=== PATIENT | female | born 1955 | race Caucasian/White ===

== ENCOUNTER 2017-08-20 10:30 | Outpatient (CLI) | payer MEDICARE | END 2017-08-20 10:31 | disposition home or self-care (01) | LOC: BICRAD 10:30 | PROVIDERS: ATTEND Family Medicine | DX: J40 Bronchitis, not specified as acute or chronic (principal); I70.90 Unspecified atherosclerosis | CPT/HCPCS: 71046 ==

== ENCOUNTER 2017-12-23 22:01 | Observation (INO) | payer MEDICARE ==
--- NOTE | 2017-12-23 22:23 | CT ---
CT BRAIN WITHOUT CONTRAST: 12/23/17 HISTORY: Headache. COMPARISON: None. FINDINGS: No acute territorial infarct or hemorrhage. No midline shift or mass effect. Ventricular size and ext ra-axial CSF spaces are normal. Paranasal sinuses and mastoids are clear. IMPRESSION: No acute intracranial abnormality. Code ROSEANN German at 10:20 p.m. POS: [facility]
[2017-12-23 22:36] LABS: #Basophils 0.1 thou/uL (0.0-0.2); #Eosinphils 0.2 thou/uL (0.0-0.7); #Lymphocytes 2.9 thou/uL (1.20-3.40); #Monocytes 0.5 thou/uL (0.11-0.59); #Neutrophils 4.2 thou/uL (1.40-6.50); %Basophils 1.1 % (0.0-1.0); %Eosinophils 2.5 % (0.0-10.0); %Monocytes 5.8 % (0.0-10.0); %Neutrophils 53.6 % (42.0-75.0); Hemoglobin 12.9 g/dL (12.0-16.0); Mean Corpuscular HGB CONC 33.3 g/dL (32.0-36.0); Mean Corpuscular Volume 90.2 fl (81.0-99.0); Mean Platelet Volume 6.6 fL (7.4-10.4); Platelet Count 236 thou/uL (130-400); RBC Distribution Width 12.3 % (11.5-14.5); Red Blood Cell (RBC) Count 4.28 mill/uL (4.20-5.40); White Blood Cell (WBC) Count 7.7 thou/uL (4.8-10.8)
[2017-12-23 22:41] LABS: INR-International Normal Ratio 0.9; Prothrombin Time 12.6 SEC (12.0-14.7)
[2017-12-23 22:42] LABS: PTT 29.7 SEC (22.9-36.1)
--- NOTE | 2017-12-23 22:45 | CT ---
CT ANGIOGRAM OF HEAD WITH CONTRAST CT ANGIOGRAM NECK WITH CONTRAST: 12/23/17 HISTORY: Stroke alert. COMPARISON: None. FINDINGS: CT angiogram of the head and neck performed after the intravenous administration of contrast. 3D rend ering is provided. Great vessels are unremarkable. There is mild scarring in lung apices as well as low grade paraseptal emphysema. Low grade small likely reactive mediastinal lymph nodes. the thyroid gland is mildly atro phied. No adenopathy. Normal alignment of the cervical spine. VESSELS: RIGHT SIDE: The right vertebral artery is dominant. No significant narrowing thrombosis or dissection. Common car otid artery is patent. Internal carotid artery is patent. No significant narrowing using NASCET crite perlita. LEFT SIDE: There is a small left vertebral artery. There is attenuation of the intradural vertebral artery. The common carotid artery is patent. No significant narrowing of the internal carotid artery using NASCET criteria. The jena of German is patent. No thrombosis, significant narrowing, nor aneurysm formation. IMPRESSION: No evidence of stenosis, thrombosis, nor aneurysm formation. No significant narrowing using NASCET cr iteria. Code CR - Dr. German at 10:32 p.m. POS: [facility]
[2017-12-23 22:48] LABS: ALT (SGPT) 45 U/L (8-55); AST (SGOT) 43 U/L (5-34); Albumin 4.2 g/dL (3.4-4.8); Alkaline Phosphatase 70 U/L (40-150); Anion Gap 12 mmol/L (10-20); BUN (Urea Nitrogen) 21 mg/dL (9.8-20.1); Bilirubin, Total 0.3 mg/dL (0.2-1.2); Calc. Creatinine Clearance 0 mL/min (70-130); Calcium 9.5 mg/dL (7.8-10.44); Carbon Dioxide 26 mmol/L (23-31); Chloride 102 mmol/L (98-107); Estimated GFR-MDRD 80; Globulin 2.7 g/dL (2.4-3.5); Glucose 136 mg/dL (80-115); Potassium 4.1 mmol/L (3.5-5.1); Protein, Total 6.9 g/dL (6.0-8.3); Sodium 136 mmol/L (136-145)
[2017-12-23 22:52] LABS: Troponin I 0.027 ng/mL (< 0.028)
[2017-12-23 23:11] LABS: Bilirubin Negative (Negative); Blood, Urine Negative (Negative); Clarity CLEAR (Clear); Glucose, Urine (Dipstick) Negative (Negative); Leukocyte Negative (Negative); Nitrite Negative (Negative); Protein, Urine (Dipstick) Negative (Neg-Trace); Specific Gravity, Urine 1.042 (1.002-1.036); Urobilinogen 0.2 mg/dL (0.2-1.0)
[2017-12-23 23:21] LABS: Amphetamine Not Detected (NotDetected); Barbiturates Screen Not Detected (NotDetected); Benzodiazepine Screen Not Detected (NotDetected); Cocaine Metabolite Screen Not Detected (NotDetected); Medtox Control Line Valid? VALID (VALID); Medtox Reader # READER 4; Methadone Not Detected (NotDetected); Methamphetamine Not Detected (NotDetected); Opiate Screen Not Detected (NotDetected); Oxycodone Screen Not Detected (NotDetected); Phencyclidine (PCP) Not Detected (NotDetected); THC/Cannabinoid Screen Not Detected (NotDetected); Tricyclic Screen Not Detected (NotDetected)
[2017-12-23 23:37] LABS: Magnesium 1.7 mg/dL (1.6-2.6)
[2017-12-24 02:42] VITALS: BMI 38.4
[2017-12-24 02:52] LABS: Troponin I 0.041 ng/mL (< 0.028)
[2017-12-24 05:49] LABS: Troponin I 0.029 ng/mL (< 0.028)
[2017-12-24] MEDS ORDERED: Dextrose 50% Abboject 50 ML SYRINGE IVP PRN (08:52)
[2017-12-24] MEDS ORDERED: Dextrose 5% in Water 1,000 ML IV PRN (08:52)
[2017-12-24] MEDS ORDERED: Insulin Regular 300 UNITS/3 ML VIAL SC PRN (08:52)
[2017-12-24] MEDS ORDERED: Ibuprofen 200 MG TAB PO PRN (09:03)
[2017-12-24] MEDS: Aspirin 325 MG TAB PO SCH (09:31)
[2017-12-24] MEDS: busPIRone HCl 10 MG TAB PO SCH (09:31)
[2017-12-24] MEDS: Fish Oil 1,000 MG CAP PO SCH (09:31)
[2017-12-24] MEDS: Oxybutynin 5 MG TAB PO SCH (09:31)
[2017-12-24] MEDS: Allopurinol 300 MG TAB PO SCH ×2 (09:32→21:13)
[2017-12-24] MEDS: Multivit, Therapeutic 1 TAB PO SCH (09:32)
[2017-12-24] MEDS: Calcium Carbonate + Vit D 1 TAB PO SCH (09:32)
[2017-12-24] MEDS: Meloxicam 15 MG TAB PO SCH (09:32)
--- NOTE | 2017-12-24 13:51 | ULT ---
CAROTID ULTRASOUND: COMPARISON: 11/20/12. HISTORY: Cardiovascular disease and carotid bruit. TECHNIQUE: Multiplanar, molina scale, and color Doppler images were obtained in a carotid ultrasound. Spectral an alysis of the Doppler waveforms was performed. FINDINGS: A small amount of plaque is seen surrounding both carotid bifurcations. The Doppler waveforms are no rmal bilaterally. Peak systolic velocity in the right ICA is 91 cm/s. Peak systolic velocity of the right CCA is 65 cm /s. The right ICA/CCA ratio is 1.4. Peak systolic velocity in the left ICA is 64 cm/s. Peak systolic velocity in the left CCA is 85 cm/s . The left ICA/CCA ratio is 0.8. Both vertebral arteries demonstrate antegrade flow without focal stenosis. IMPRESSION: No evidence of hemodynamically significant stenosis. POS: [facility]
--- NOTE | 2017-12-24 14:13 | HP ---
DATE OF ADMISSION: 12/24/2017 REASON FOR ADMISSION: Chest pain and weakness. HISTORY OF PRESENT ILLNESS: This is a pleasant 62-year-old female with a history of coronary artery disease with AR in the past. She has not seen Dr. Pimentel, she said in quite some time. She also had a history of cerebrovascular accident. She presents after she began having pain on her left side of her head that made her vision blurry. S hortly after this, she started having retrosternal chest tightness. She felt like "somebody was sitt ing on her chest" associated with shortness of breath and upper extremity weakness. She states she t ook a nitroglycerin and the pain went away, but it did come back. She did have to go to the emergenc y room where AR was ruled out by serial cardiac enzymes. She also had a CT of the head that was unre markable. Subsequently, she was admitted to the hospital for further evaluation and treatment. PAST MEDICAL HISTORY: 1. History of CVA. 2. COPD. 3. Hypothyroidism. 4. History of kidney stones. 5. Depression. 6. Obesity. 7. Questionable history of diabetes type 2. PAST SURGICAL HISTORY: 1. Stent placement in the past. 2. Appendectomy, cholecystectomy, and hysterectomy in the past. 3. Umbilical hernia repair in the past. 4. Renal calculi surgery in the past. ALLERGIES: None. MEDICATIONS: 1. Tylenol #3 every 6 hours p.r.n. pain. 2. Allopurinol 300 b.i.d. 3. Aspirin 325 mg every day. 4. Buspirone 15 mg every day. 5. Calcium carbonate 600 mg plus vitamin D every day. 6. Fenofibrate 160 mg every day. 7. Advair 2 inhalations b.i.d. 8. Motrin 400 mg t.i.d. 9. Isosorbide 60 mg every day. 10. Levothyroxine 75 mcg daily. 11. Lovastatin 20 mg every day. 12. Mobic 15 mg every day. 13. Metformin 1000 mg b.i.d. 14. Multivitamin daily. 15. Moon 3 daily. 16. Ditropan 5 mg b.i.d. 17. Accupril 20 mg every day. 18. Zoloft 10 mg every day. 19. Trazodone 100 mg at bedtime. SOCIAL HISTORY: She is disabled. She does not smoke now. She used to smoke a long time ago. She d oes not drink alcohol. FAMILY HISTORY: Positive for coronary artery disease. REVIEW OF SYSTEMS: General: Admits to weakness and fatigue. No fever or chills. HEENT: No diplop ia, amaurosis fugax, tinnitus, sore throat or hoarseness. Cardiovascular: See history of present il lness. Pulmonary: No cough, hemoptysis. She does have COPD. Gastrointestinal: No GI bleed, const ipation, or diarrhea. Genitourinary: No dysuria, nocturia, oliguria or polyuria. Endocrine: No po lyphagia, polydipsia or heat or cold intolerance. Musculoskeletal: Admits to arthralgia. No lupus or myopathy. Neurologic: See present illness. All systems are negative. PHYSICAL EXAMINATION: GENERAL: Pleasant female who appears to be in no acute distress. She is not having any more chest p ain. VITAL SIGNS: Her blood pressure is 136/70, pulse 60, respiration rate 18. She is afebrile. NECK: Supple with no increased JVP or carotid bruit. Carotid had good upstroke with no thyromegaly. COR: Regular rhythm. CHEST: Symmetrical. Clear to auscultation and percussion. ABDOMEN: Soft, nontender with normoactive bowel sounds. No bruit or organomegaly. EXTREMITIES: No edema or cyanosis. She had palpable pedal pulses. She has SCDs on. NEUROLOGIC: She is awake, alert, and oriented to person, place and time. Neurologically, she appear s to be intact with a hand grasp, toe wiggle and arm and leg press. LABORATORY DATA: CBC is normal. Glucose 118. First troponin 0.027, second 0.041, third 0.029. UA is negative. EKG showed no acute change. ASSESSMENT: 1. Chest pain with a history of coronary artery disease with stent in the past. 2. Hypertension. 3. Hyperlipidemia. 4. Diabetes. 5. Chronic obstructive pulmonary disease. 6. Possible transient ischemic attack. PLAN: 1. We will ask Dr. Pimentel to see the patient in consultation regarding chest pain. 2. We will obtain a complete echocardiogram and carotid ultrasound. 3. We will continue aspirin 325 mg every day. 4. We will check blood sugars accordingly. 5. We will ask the neuro to see the patient in consultation for recommendations and may be needing a n MRI. The patient verbalized understanding. All questions answered to satisfaction.
--- NOTE | 2017-12-24 16:19 | CON ---
DATE OF ADMISSION: 12/24/2017 DATE OF CONSULTATION: 12/24/2017 INDICATION FOR CONSULTATION: A 62-year-old female with history of known coronary artery disease, adm itted with severe headache, has some slight neurologic changes and chest pain. We were asked to see her due to her coronary artery disease and chest pain. She has a history of previously placed stents in the left circumflex and diagonal branch and also has some stenosis in the right coronary artery. Her last cardiac catheterization was in 2010. She has not followed up on a routine basis. She has not seen a correctional therapy teacher for several years and at home had been having some chest discomfort. She too k nitroglycerin and the pain improved, but after she developed the headaches and also some radiation of some chest pain to the left arm, she presented to the emergency room. She did have one episode of chest discomfort in the emergency room, which she did not inform the nurses about, but since she has been admitted on the floor. She has not had any further chest discomfort. Her cardiac enzymes are unremarkable. At this time, she is comfortable and is feeling almost back to her baseline. Unfortun ately, she has multiple risk factors for coronary artery disease in addition to her previously placed stents and has not been following up on a routine basis and has continued to smoke. For her past medical history, social history, family history, review of systems, please refer to the notes dictated by the nurse practitioner. PHYSICAL EXAMINATION: GENERAL: This is a well-developed and well-nourished female who is in no acute distress at this time . VITAL SIGNS: She is afebrile. Blood pressure 136/69, heart rates in the 60s and shows a sinus rhyth m, respiratory rate 16. HEENT: Shows head to be normocephalic and atraumatic. Carotid pulses are somewhat decreased. The r ight carotid pulse is less palpable than the left. She has a very soft right carotid bruit. I canno t hear a left carotid bruit. CHEST: Clear to auscultation without rales, rhonchi, or wheezing. CARDIOVASCULAR: Reveals a regular rate and rhythm with normal S1 and S2. I cannot hear an S3 nor an S4. ABDOMEN: Obese with positive bowel sounds. No organomegaly or masses were noted. Pulses are presen t. Pedal pulses are also present. NEUROLOGIC: The patient appears to be intact. I cannot elicit any significant focal defects. SKIN: Warm and dry. LABORATORY DATA AND IMAGING: Please refer to the notes already dictated, but she has no cardiac enzy mes. On admission, it was 0.027, increased troponin I, and then increased up to 0.041, is now decrea sed back down to 0.029. MBs are negative. Her renal function shows a creatinine of 0.74 with a BUN of 21. Her hemoglobin is 12.9. IMPRESSION: 1. A middle-aged female with a history of coronary artery disease, angioplasty and stent placements who has had episodes of chest discomfort recently without any significant EKG changes or any signific ant elevation of cardiac enzyme. We will advise her to undergo a stress test to rule out evidence fo r underlying ischemia. If any is found, she will need to undergo repeat cardiac catheterization. 2. History of hypercholesterolemia. There is no recent cholesterol level performed at this time, bu t previous LDL on 12/22 at an outside facility was 54 and cholesterol appears to be under good contro l. 3. History of cerebrovascular accident in the past. We will need to reevaluate her carotid arteries . She is very stable at this time. 4. Severe headaches. She has had a CT scan performed which was unremarkable. Her son did of ce rebral aneurysm earlier this year. We will be more than happy to continue to follow the patient with you. Further recommendations will depend on the results of the stress test and echocardiogram as we ll as the carotid ultrasound.
--- NOTE | 2017-12-24 16:22 | CON ---
DATE OF SERVICE: 12/24/2017 This is a 62-year-old female who presented to the emergency room by EMS with left-sided headaches, se kaz shooting pain with blurred vision. She reports about 5 minutes after having a headache, she sta rted having heavy chest pain that radiated to her left arm, left shoulder and fingers with nausea and diaphoresis. She denies any vomiting. She did take one nitro that eased up her chest pain. She re ports that the pain started while she was just sitting at home while resting. She describes the pain as heaviness, something sitting on her chest. She arrived to the emergency room and they worked her up for a stroke. Head CT was negative. CT angio was negative. She was admitted for transient isch emic attack and Cardiology was consulted for chest pain. PAST MEDICAL HISTORY: She had 4 stents [place] [address] Pimentel. She has a history of diabet es type 2, she takes metformin twice a day, hypothyroidism, hypertension. She states she has had a m yocardial infarction. She does have a left cataract without surgical repair. She does have a previo us history of a cerebrovascular accident with right-sided deficit. She says that the right-sided def icit is resolved at this time. She reports having pneumonia 4-5 years ago, chronic obstructive pulmo nary disease history and asthma history. SURGICAL HISTORY: Right knee surgery 2 years ago, hernia repair as an , hysterectomy, a cholec ystitis, a cholecystectomy. SOCIAL HISTORY: She does smoke 1 pack every 3 days. She has been a smoker off and on for 40 years. She states that she is disabled and she lives at home alone. FAMILY HISTORY: She states her grandfather had a massive heart attack. CURRENT MEDICATIONS: She takes at home is Accupril, Zoloft, Zocor, Advair, Ditropan, trazodone, metf ormin. ALLERGIES: She reports being allergic to pizza sauce which makes her short of breath and weak. Taiwo es any other allergies to medications. REVIEW OF SYSTEMS: She did have vision changes, headaches. She does report a runny nose, at times i ncreased shortness of breath and asthma history. CARDIAC: She denies any palpitations, denies any chest pain at this time, although she did have ches t heaviness last night. She does report dyspnea with exertion and more short of breath than normal. Unable to walk from her kitchen to her living room which is new for her over the last couple of week s. GI: She denies any abdominal pain, any nausea, vomiting, constipation, diarrhea at this time, she do es report a decrease in appetite. She denies any rectal bleeding. She does report incontinence and takes Ditropan for that which has been worse at night and she has to wear a diaper. MUSCULOSKELETAL: She denies any joint swelling. NEUROLOGIC: She denies any seizures, syncope, tremors. Although, she does feel very weak, generaliz ed weakness. PHYSICAL EXAMINATION: VITAL SIGNS: Blood pressure is 136/69, heart rate 64 regular, respirations 16, temperature 97.9, SpO 2 95% on room air. HEENT: She is normocephalic, atraumatic. Carotids are 2+. I could not hear any bruits. CHEST: Clear in the upper lobes. She does have some mild rales and diminished breath sounds in the lower lobes. I do not hear any wheezing. CARDIOVASCULAR: She has a regular rate and rhythm with a normal S1, S2. I did not hear a S4 or S3 h eart sound. She does not have any significant murmurs, heaves, thrills or rubs. ABDOMEN: Soft, nontender and she has got active bowel sounds x4. No palpable masses in her abdomen. No hernias. She does report a repair as an infant. She has got +2 femoral pulses. EXTREMITIES: She has got normal motor strength. She has equal in upper and lower extremities. Ther e is no cyanosis. There is no clubbing. Pulses are 2+ and equal pedal and dorsalis pedis pulses. NEUROLOGICAL: Her speech is low. LABORATORY: BUN 21, creatinine 0.74, glucose 136, calcium 9.5, magnesium 1.7, AST is 43. The first troponin was 0.041, repeat was 0.029. Urine drug screen was negative. ASSESSMENT: Transient ischemic attack, general weakness, cardiovascular disease with stent placement s. PLAN: The plan is to order an echo, stress test, and a chest x-ray and BNP.
--- NOTE | 2017-12-24 16:32 | CON ---
DATE OF CONSULTATION: 12/24/2017 CHIEF COMPLAINT: Headache and right-sided weakness. HISTORY OF PRESENT ILLNESS: Patient is a very pleasant 62-year-old lady who reports to me that she has had a prior stroke which affected the right side of her body and she stated to me that she could not remember the exact date of that stroke and per ER chart, she did have a stroke, but there is no clear date on it. I am assuming it is in the past 2 years or so. She developed a headache on the left side with some uncomfortable sensations and whenever she has a headache, she has right-sided weakness and it seems to be transient. She stated to me prior to this admission, she had a significant stroke which caused a major weakness on her right side of the body, but subsequently she regained her strength: She has developed chest pain overnight and she took nitro 2 times and mostly she is still having intermittent weakness on the right side and chest pain. PAST MEDICAL HISTORY: She has coronary artery disease with myocardial infarction and stent placement, she had 4 stents. She has type 2 diabetes, hypothyroidism, hypercholesterolemia, hypertension, and a prior CVA on 2 occasions, COPD, and asthma. PAST SURGICAL HISTORY: She had 4 stents placed 3 years ago, appendectomy, cholecystectomy, hysterectomy, right tibial fracture repair. PSYCHIATRIC HISTORY: Positive for depression. SOCIAL HISTORY: She smokes half pack a day. Does not drink alcohol, no drug use. She lives by herself. FAMILY HISTORY: Positive for stroke in her father and her son at age 39 in this hospital on 08/09/2017 following aneurysm and seizure and he went into coma per patient. REVIEW OF SYSTEMS: Pulmonary: Normal. Cardiac: Chest pain. Genitourinary: Normal. Gastrointestinal: Normal. Neurologic: Positive for headache and sharp sensations on the left side of the head along with weakness of the right side. Endocrine: Positive for hypothyroidism. LABORATORY DATA: White count 7.7, hemoglobin 12.9, hematocrit 38.6, platelets 236. Chemistry: Sodium 136, potassium 4.1, chloride 102, bicarbonate 26, BUN 21, creatinine 0.74, glucose 136. Troponin elevated at 0.041 and 0.029 and cholesterol and other panel pending. Toxicology screen is negative and PT 12.6 , INR 0.9, PTT 29.7. She had a CT of the head which did not show any acute abnormality and her CT angiography with perfusion shows no evidence of stenosis thrombosis or aneurysm formation. No significant narrowing. Further workup is pending at this time. PHYSICAL EXAMINATION: VITAL SIGNS: Blood pressure 158/58, temperature 97.8, pulse 64, respiratory rate 18. CHEST: Clear vesicular breathing. GENERAL APPEARANCE: Well-built, well-nourished lady who is comfortable in bed, but seems to be a little emotional about her son's . CHEST: Clear vesicular breathing. CARDIOVASCULAR: S1, S2 heard, no murmurs. ABDOMEN: Soft, nontender, no organomegaly noted. NEUROLOGICAL: Higher intellectual functions, normal orientation to time, place , person and appropriate conversation, but could not recall some events mainly her stroke day and dates in her medical history. Cranial nerves: Left eye blindness with cataract and abnormal pupil on the left eye. Right eye normal and cranial nerves II-XII as noted. Normal extraocular movements. No facial asymmetry, normal sensation of face bilaterally. Normal hearing bilaterally. Tongue midline, no atrophy noted. Normal elevation of palate. Strength 5/5 on the left side and 4/5 on the right side with slightly decreased effort. Muscle groups tested: Iliopsoas, hamstrings, quadriceps, ankle dorsiflexion, plantar flexion, deltoid, biceps, triceps, wrist extension/flexion, finger extension and flexion. Sensory examination: Decreased sensation to touch, vibration and pinprick and temperature on the right side compared to the left side and normal proprioception bilaterally. Deep tendon reflexes were absent. She was very sensitive even while testing tendon DTRs on the right side. Cerebellar: Normal [id number]. [id number] difficult to perform. Gait not tested. IMPRESSION: Patient is a 62-year-old lady with a prior cerebrovascular accident and ischemic event. At this time, she has headache and intermittent sensation of worsening of weakness on the right side. She also comes in with chest pain. Her laboratory workup so far shows mild elevations in troponin I and she is pending further cardiac workup. At this time, I think it is most appropriate if possible to get an MRI of the brain and make sure there are no acute events. Her neurological examination shows residual effects from prior ischemic event. She also appears to be depressed and dealing with emotions with loss of her son, which she states has been quite hard for her since he was only 39 and he passed from a brain aneurysm.Her diagnosis is most consistent with worsening of prior weakness due to CVA. However we need to rule out any acute stroke given her medical history. RECOMMENDATIONS: 1. MRI of the brain. 2. I will follow up the patient with you tomorrow to review results on the MRI. 3. No additional recommendations. Continue antiplatelet agent, aspirin for now. HEATHER
[2017-12-24] MEDS: Simvastatin 5 MG TAB PO SCH (16:44)
[2017-12-24] MEDS: metFORMIN 500 MG TAB PO SCH (16:44)
--- NOTE | 2017-12-24 17:13 | NM ---
CARDIAC SPECT 12/24/17 HISTORY: 62-year-old female with chest pain, coronary artery disease, COPD, asthma, CVA, hypertension, diabete s mellitus, dyslipidemia. TECHNIQUE: Stress only myocardial perfusion scan was performed following the intravenous administration of 27 mi llicuries technetium 99m Sestamibi. Pharmacologic stress with Lexiscan was monitored and interpreted by the nurse practitioner, Isabelle. FINDINGS: Homogeneous tracer distribution is seen in the myocardial segments on the post stress images. GATED SPECT LVEF: 72%. WALL MOTION EXAM: Normal. IMPRESSION: Normal post stress myocardial perfusion scan. POS: [facility]
[2017-12-24] MEDS: Mometasone/Formoterol 120 PUFF INHALER INH SCH (18:53)
[2017-12-24] MEDS ORDERED: traZODone HCl 50 MG TAB PO SCH (21:00)
[2017-12-25] MEDS ORDERED: Levothyroxine 175 MCG TAB PO SCH (06:00)
[2017-12-25] MEDS: Mometasone/Formoterol 120 PUFF INHALER INH SCH (06:59)
[2017-12-25] MEDS: Simvastatin 5 MG TAB PO SCH (08:26)
[2017-12-25] MEDS: Meloxicam 15 MG TAB PO SCH (08:27)
[2017-12-25] MEDS: Oxybutynin 5 MG TAB PO SCH (08:27)
[2017-12-25] MEDS: Aspirin 325 MG TAB PO SCH (08:27)
[2017-12-25] MEDS: metFORMIN 500 MG TAB PO SCH (08:27)
[2017-12-25] MEDS: Calcium Carbonate + Vit D 1 TAB PO SCH (08:27)
[2017-12-25] MEDS: busPIRone HCl 10 MG TAB PO SCH (08:27)
[2017-12-25] MEDS: Allopurinol 300 MG TAB PO SCH (08:28)
[2017-12-25] MEDS: Multivit, Therapeutic 1 TAB PO SCH (08:28)
[2017-12-25] MEDS: Fish Oil 1,000 MG CAP PO SCH (08:28)
[2017-12-25] MEDS ORDERED: Fenofibrate Nanocrystallized 145 MG TAB PO SCH (09:00)
--- NOTE | 2017-12-25 10:26 | PRG ---
DATE OF SERVICE: 12/25/2017 SUBJECTIVE: The patient had a good night. She denies any weakness. She denies any chest, arm or ba ck pain. She also denies any breathing problems. Carotid Doppler was negative. Her stress test was normal. Her MRI is pending. PHYSICAL EXAMINATION: GENERAL: Upon evaluation, she is awake, alert, and oriented to person, place and time. VITAL SIGNS: Blood pressure 160/67, pulse 60, respiration 16, she is afebrile. NECK: Supple with no increased JVP or carotid bruit. Carotid had good upstroke with no thyromegaly. COR: Regular rate and rhythm. CHEST: Clear to auscultation and percussion. ABDOMEN: Soft, nontender with normoactive bowel sounds. There is no bruit or organomegaly. EXTREMITIES: No edema or cyanosis. Palpable pedal pulses. SKIN: There is no evidence of ulcers, lesion, or rash. NEUROLOGIC: She is awake, alert, and oriented to person, place, and time. ASSESSMENT: 1. Chest pain. 2. History of coronary artery disease. 3. Hypertension. 4. Hyperlipidemia. 5. Diabetes. 6. Transient ischemic attack. 7. Noncompliance. PLAN: The patient will have an MRI done today and if all okay and if okay with neuro, we will look a t sending the patient home and then follow up on outpatient basis. The patient verbalized understand ing. All questions answered to satisfaction. This is NEIDA Mcgowan-Esa dictating for Dr. Shaq Burns.
--- NOTE | 2017-12-25 10:49 | PDOC.CTH ---
Cardiology Progress Note - Subjective The pt seen and examined. No overnight events. No cardiac complaints. - Objective Vital Signs Temp Pulse Resp BP BP Pulse Ox 12/25/17 08:28 191/78 H 12/25/17 08:26 97.6 F 65 16 12/25/17 08:00 97.6 F 65 16 191/78 H 95 12/25/17 04:00 97.6 F 62 16 167/67 H 93 L 12/25/17 00:00 97.4 F L 58 L 16 138/63 94 L Weight 219 lb 14.4 oz 12/24/17 12/25/17 12/26/17 06:59 06:59 06:59 Intake Total 480 Balance 480 - Physical Examination General/Neuro: alert & oriented x3 Neck: no JVD present Lungs: CTA Heart: RRR Abdomen: soft Extremities: other: (No edema) - Telemetry Telemetry Rhythm: SB and SR 59-60s - Labs Result Diagrams: 12/23/17 22:21 12/23/17 22:21 Troponin/CKMB CK-MB (CK-2) 2.0 ng/mL (0-6.6) 12/23/17 22:21 Troponin I 0.029 ng/mL (< 0.028) H 12/24/17 05:20 - Assessment/Plan 1. CAD with Hx of stent placement - No more CP or discomfort in her chest; Stress test on 12/24/17 showed no ischemia with EF >70%; On ASA and statin; Start Lisinopril 5mg daily; Not BBlocker due to HR 59-60s. cont. to monitor 2. HTN - start Lisinopril 5mg daily 3. Hx of TIA - CT head showed normal; Carotid Doppler study showed no stenosis; managed by neurologist 4. DM type 2 - managed by PCP 5. Hyperlipidemia - on Statin 6. Non-compliance MAR reviewed Review of Systems - Review of Systems Constitutional: reports: no symptoms reported EENTM: reports: no symptoms reported Respiratory: reports: no symptoms reported Cardiac (ROS): reports: no symptoms reported ABD/GI: reports: no symptoms reported : reports: no symptoms reported Musculoskeletal: reports: no symptoms reported Skin: reports: no symptoms reported
[2017-12-25] MEDS ORDERED: Carvedilol 3.125 MG TAB PO SCH (11:00)
[2017-12-25] MEDS ORDERED: Lisinopril 5 MG TAB PO SCH (11:25)
--- NOTE | 2017-12-25 12:03 | MRI ---
MRI BRAIN WITH AND WITHOUT CONTRAST: HISTORY: 62-year-old female with acute, worsening right-sided weakness and left-sided headache. TECHNIQUE: Multiple sequences obtained in axial, sagittal, and coronal planes; pre and post IV injection of gado linium-based contrast agent: 18 mL MultiHance. FINDINGS: The ventricles are normal in size and configuration. There is no major intraaxial signal abnormality , restricted diffusion, abnormal intraaxial enhancement, mass, midline shift or any other mass effect , recent intraaxial hemorrhage, or extraaxial fluid collection. There is a partially empty sella. IMPRESSION: Essentially normal. jnr POS: KRYSTINA
--- NOTE | 2017-12-25 13:35 | PRG ---
DATE OF SERVICE: 12/25/2017 CHIEF COMPLAINT: Difficulty with weakness on the right side. INTERVAL HISTORY: The patient reports there has been no significant change in the weakness on the ri ght side, but she feels slightly better today compared to yesterday. Her laboratory reports were rev iewed and her MRI scan of the brain has been reported. She has a normal MRI scan and this is an MRI of brain with and without contrast. PHYSICAL EXAMINATION: VITAL SIGNS: Blood pressure 133/67, temperature 98.2 and pulse is 72. NEUROLOGIC: She is alert, awake, oriented to time, place, person. CRANIAL NERVES: Left eye blindness and no facial asymmetry noted. MOTOR EXAMINATION: Slight weakness on the right upper extremity at 4/5, right lower extremity 3+/5. Gait not tested. IMPRESSION: Patient is a 62-year-old lady who comes in with worsening of her right-sided weakness an d also feeling dizzy. Her examination shows consistent right-sided weakness, but she reports she has had a prior stroke. Her current MRI is negative and there is no concern for an acute stroke at this time. She has some cardiac issues and she also has lost her son who was very young and she is deali ng with emotions from that. RECOMMENDATIONS: No additional antiplatelet agents needed from stroke prevention standpoint, but she did not have another acute stroke at this time. Please refer her to Psychiatry for management of de pression and her grief reaction to her son's and I will see her on an as needed basis.
[2017-12-25 15:46] VITALS: BP 171/75; TEMP 97.8
--- NOTE | 2017-12-25 17:22 | EKG ---
Test Reason : Blood Pressure : / mmHG Vent. Rate : 062 BPM Atrial Rate : 062 BPM P-R Int : 164 ms QRS Dur : 096 ms QT Int : 460 ms P-R-T Axes : 045 -09 033 degrees QTc Int : 466 ms Normal sinus rhythm Minimal voltage criteria for LVH, may be normal variant Possible Anterior infarct , age undetermined Abnormal ECG Confirmed by CHARMAINE JARVIS ([id number]), editorial intern SHIRLEY VALENCIA ([id number]) on 12/25/2017 5:22:13 PM Referred By: Confirmed By:CHARMAINE JARVIS
[2017-12-26] MEDS ORDERED: Lisinopril 5 MG TAB PO SCH (09:00)
== END 2017-12-25 18:28 | disposition home or self-care (01) ==
LOC: ERS 22:01 → 2SE 12-24 00:06
PROVIDERS: ADMIT Specialist; ATTEND Specialist
DX: R07.89 Other chest pain (principal); I25.10 Atherosclerotic heart disease of native coronary artery without angina pectoris; I25.2 Old myocardial infarction; J44.9 Chronic obstructive pulmonary disease, unspecified; E03.9 Hypothyroidism, unspecified; F32.9 Major depressive disorder, single episode, unspecified; I10 Essential (primary) hypertension; E11.9 Type 2 diabetes mellitus without complications; G45.9 Transient cerebral ischemic attack, unspecified; E78.00 Pure hypercholesterolemia, unspecified; I69.351 Hemiplegia and hemiparesis following cerebral infarction affecting right dominant side; E66.9 Obesity, unspecified; Z68.41 Body mass index [BMI] 40.0-44.9, adult; Z95.5 Presence of coronary angioplasty implant and graft; Z79.899 Other long term (current) drug therapy; Z79.82 Long term (current) use of aspirin; Z79.84 Long term (current) use of oral hypoglycemic drugs; Z79.1 Long term (current) use of non-steroidal anti-inflammatories (NSAID); Z87.891 Personal history of nicotine dependence; Z91.19 Patient's noncompliance with other medical treatment and regimen
CPT/HCPCS: 0042T; 70450; 70496; 70498; 70553; 78452; 80053; 80306; 81003; 82553; 82962 ×3; 83690; 83735; 84484 ×3; 85025; 85610; 85730; 93005; 93017; 93306; 93880; 94640 ×2; 94760; 99285; A9500; G0378; 36415; 36416; A4216; J1815

== ENCOUNTER 2018-03-24 13:24 | Emergency (ER) | payer MEDICARE ==
[~2018-03-24 13:24] MED LIST: Iopamidol 370 76% 100 ML VIAL ONE
[2018-03-24 13:49] LABS: #Eosinphils 0.1 thou/uL (0.0-0.7); #Lymphocytes 1.6 thou/uL (1.20-3.40); #Monocytes 0.3 thou/uL (0.11-0.59); #Neutrophils 3.7 thou/uL (1.40-6.50); %Basophils 0.5 % (0.0-1.0); %Eosinophils 2.6 % (0.0-10.0); %Lymphocytes 27.6 % (21.0-51.0); %Monocytes 4.5 % (0.0-10.0); %Neutrophils 64.9 % (42.0-75.0); Hemoglobin 13.9 g/dL (12.0-16.0); Mean Corpuscular HGB CONC 33.7 g/dL (32.0-36.0); Mean Corpuscular Hemoglobin 30.3 pg (27.0-31.0); Mean Corpuscular Volume 89.9 fL (78.0-98.0); Mean Platelet Volume 6.4 fL (7.4-10.4); Platelet Count 211 thou/uL (130-400); RBC Distribution Width 13.1 % (11.5-14.5); Red Blood Cell (RBC) Count 4.57 mill/uL (4.20-5.40); White Blood Cell (WBC) Count 5.7 thou/uL (4.8-10.8)
[2018-03-24 14:10] LABS: ALT (SGPT) 31 U/L (8-55); AST (SGOT) 30 U/L (5-34); Albumin 4.5 g/dL (3.4-4.8); Alkaline Phosphatase 90 U/L (40-150); Anion Gap 14 mmol/L (10-20); BUN (Urea Nitrogen) 16 mg/dL (9.8-20.1); Bilirubin, Total 0.3 mg/dL (0.2-1.2); Calc. Creatinine Clearance 0 mL/min (70-130); Calcium 9.9 mg/dL (7.8-10.44); Carbon Dioxide 26 mmol/L (23-31); Chloride 104 mmol/L (98-107); Estimated GFR-MDRD 70; Globulin 3.2 g/dL (2.4-3.5); Glucose 154 mg/dL (80-115); Potassium 4.5 mmol/L (3.5-5.1); Protein, Total 7.7 g/dL (6.0-8.3); Sodium 139 mmol/L (136-145)
--- NOTE | 2018-03-24 14:19 | RAD ---
RADIOGRAPH CHEST 1 view: CPT: 08906 ICD-10-PCS: [id number] Date: 03/24/2018 Time: 12:49 p.m. HISTORY: A 62-year-old female with cough, dyspnea, and chest congestion. COMPARISON: 04/19/2014 FINDINGS: Previously, there was mild pulmonary scarring at the left lateral base. That region has thicker, mor e prominent, curvilinear pulmonary scar. In addition, there is greater haziness overlapping the scar in the left lateral lower lung zone now than on the prior study, which could also be part of pulmona ry scarring, although a superimposed, acute infiltrate is difficult to completely exclude. The rest of the visualized lung teran are clear. No pneumothorax. IMPRESSION: 1. In addition to chronic pulmonary scar at the left lateral lung base, there is a small possibility that there could be a superimposed acute infiltrate in that location. 2. Recommend followup. CHARLIE [] POS: KRYSTINA
--- NOTE | 2018-03-24 15:28 | CT ---
CT PULMONARY ANGIOGRAM WITH IV CONTRAST AND 3D POSTPROCESSING: Date: 03/24/18 HISTORY: Shortness of breath. FINDINGS: There is good contrast opacification of the pulmonary arterial vasculature without filling defects to suggest pulmonary embolism. Thoracic aorta is also well opacified without aneurysm or dissection. No pleural or pericardial effusions are seen. There are mild emphysematous changes in the upper lung fi elds. There are degenerative changes in the lung base4s. Degenerative changes are present in the spin e. IMPRESSION: No CT evidence of pulmonary embolism. POS: KRYSTINA
== END 2018-03-24 16:11 | disposition home or self-care (01) ==
LOC: ERS 13:24
DX: J20.9 Acute bronchitis, unspecified (principal); J44.0 Chronic obstructive pulmonary disease with (acute) lower respiratory infection; E03.9 Hypothyroidism, unspecified; E78.5 Hyperlipidemia, unspecified; F32.9 Major depressive disorder, single episode, unspecified; I25.2 Old myocardial infarction; E11.9 Type 2 diabetes mellitus without complications; F17.210 Nicotine dependence, cigarettes, uncomplicated; Z79.899 Other long term (current) drug therapy; Z79.84 Long term (current) use of oral hypoglycemic drugs; Z79.82 Long term (current) use of aspirin
CPT/HCPCS: 36415; 71045; 71275; 80053; 85025; 85379; 93005; 96360; J7620

== ENCOUNTER 2019-05-17 17:37 | Inpatient (IN) | payer MEDICARE ==
[2019-05-17] MEDS ORDERED: Acetaminophen 500 MG TAB ONE (18:22)
--- NOTE | 2019-05-17 18:30 | RAD ---
XR Chest 1 View Portable History: Chest pain Comparison: Radiograph March 2018 Findings: Continues scar left lung base. No confluent airspace consolidation, pneumothorax, or effusi on. Heart size mildly enlarged. No acute osseous abnormality. Impression: Chronic findings. No acute intrathoracic abnormality.
[2019-05-17 18:40] LABS: #Eosinphils 0.1 thou/uL (0.0-0.7); #Lymphocytes 0.8 thou/uL (1.20-3.40); #Monocytes 0.4 thou/uL (0.11-0.59); #Neutrophils 5.5 thou/uL (1.40-6.50); %Basophils 0.6 % (0.0-1.0); %Eosinophils 1.5 % (0.0-10.0); %Lymphocytes 11.9 % (21.0-51.0); %Monocytes 5.9 % (0.0-10.0); %Neutrophils 80.2 % (42.0-75.0); Hemoglobin 12.2 g/dL (12.0-16.0); Mean Corpuscular HGB CONC 33.1 g/dL (32.0-36.0); Mean Corpuscular Hemoglobin 29.9 pg (27.0-31.0); Mean Corpuscular Volume 90.4 fL (78.0-98.0); Mean Platelet Volume 7.2 fL (7.4-10.4); Platelet Count 196 thou/uL (130-400); RBC Distribution Width 12.9 % (11.5-14.5); Red Blood Cell (RBC) Count 4.07 mill/uL (4.20-5.40); White Blood Cell (WBC) Count 6.9 thou/uL (4.8-10.8)
[2019-05-17 18:59] LABS: Bilirubin Negative (Negative); Blood, Urine 2+ (Negative); Clarity Clear (Clear); Glucose, Urine (Dipstick) Greater than 1000 mg/dL (Negative); Leukocyte 250 Leu/uL (Negative); Nitrite Negative (Negative); Protein, Urine (Dipstick) 50 mg/dL (Neg-Trace); RBC/HPF Greater than 50 HPF (0-3); Squamous Epithelial 0-3 HPF (0-3); Urobilinogen Normal mg/dL (Less than 2); WBC/HPF Greater than 50 HPF (0-3)
[2019-05-17 19:12] LABS: Bacteria/HPF None Seen HPF (None Seen)
[2019-05-17] MEDS ORDERED: cefTRIAXone\\ROCEPHIN 2 GM VIAL ONE (19:13)
[2019-05-17 19:22] LABS: ALT (SGPT) 109 U/L (8-55); AST (SGOT) 127 U/L (5-34); Albumin 3.3 g/dL (3.4-4.8); Alkaline Phosphatase 232 U/L (40-110); Anion Gap 11 mmol/L (10-20); BUN (Urea Nitrogen) 20 mg/dL (9.8-20.1); Bilirubin, Total 0.3 mg/dL (0.2-1.2); CK (CPK) 24 U/L (29-168); Calc. Creatinine Clearance 0 mL/min (70-130); Calcium 7.3 mg/dL (7.8-10.44); Carbon Dioxide 18 mmol/L (23-31); Chloride 111 mmol/L (98-107); Estimated GFR-MDRD 88; Globulin 2.5 g/dL (2.4-3.5); Glucose 92 mg/dL (80-115); Lipase 7 U/L (8-78); Potassium 3.3 mmol/L (3.5-5.1); Protein, Total 5.8 g/dL (6.0-8.3); Sodium 137 mmol/L (136-145)
[2019-05-17] MEDS ORDERED: MEROPENEM 1 GM/50 ML BAG IVPB SCH (19:30)
--- NOTE | 2019-05-17 19:57 | CT ---
CT Stone Protocol History: Abdominal pain Comparison: CT exam 2013 Findings: Mild atelectasis in the lung bases. Nonunion left posterior ninth rib fracture. Healing lef t anterior eighth rib fracture. Old right-sided rib fractures. The left renal pelvis is mildly patulous. There were collection of what appear to be 5 total calculi within 2 separate inferior renal calyces measuring up to 5 mm maximum dimension. No other renal calculus is appreciated. Mild the left cortical atrophy and increased renal sinus fat. Mildly patulous left proximal ureter. N o hydroureteronephrosis. Spleen liver and pancreas have normal noncontrast appearance. No dilated loops of large or small norris l. Subtle asymmetric left perinephric stranding. High density radiopacity near the urinary bladder dome just deep to the left rectus fascia. No retroperitoneal periaortic adenopathy. Moderate facet arthrosis lower lumbar spine. Impression: 1. Subtle asymmetric perinephric stranding on the left kidney can be seen with pyelonephritis. 2. Total of 5 separate calculi within 2 separate left inferior renal calyces measuring up to 5 mm in greatest dimension. 3. Mildly patulous left proximal ureter and renal pelvis likely from prior passage of calculi. There is also asymmetric left renal cortical thinning likely from prior obstruction or reflux.
[2019-05-17] MEDS ORDERED: Ondansetron PF 4 MG/2 ML Vial IVP PRN (23:58)
[2019-05-17] MEDS ORDERED: Ondansetron ODT 4 MG TAB SL PRN (23:58)
[2019-05-18] MEDS: Sodium Chloride 0.9% 1,000 ML IV SCH ×4 (00:05→21:11)
[2019-05-18 00:23] VITALS: BMI 35.5
[2019-05-18] MEDS: HYDROcodone/Acetaminophen 5/325 mg Tablet PO PRN ×4 (02:22→21:09)
[2019-05-18] MEDS ORDERED: Acetaminophen 325 MG TAB PO PRN (08:26)
[2019-05-18] MEDS ORDERED: Dextrose 50% Abboject 50 ML SYRINGE IVP PRN (08:27)
[2019-05-18] MEDS ORDERED: Dextrose 5% in Water 1,000 ML IV PRN (08:27)
[2019-05-18] MEDS ORDERED: Insulin Regular 300 UNITS/3 ML VIAL SC PRN (08:27)
[2019-05-18] MEDS ORDERED: MEROPENEM 1 GM/50 ML 1 GM in Premix Bag 1 BAG IVPB SCH (09:00)
[2019-05-18] MEDS: Lisinopril 20 MG TAB PO SCH (09:06)
[2019-05-18] MEDS: busPIRone HCl 5 MG TAB PO SCH (09:08)
[2019-05-18] MEDS: Aspirin 325 MG TAB PO SCH (09:08)
[2019-05-18] MEDS: Phenazopyridine HCl 97.5 MG TABLET PO SCH ×3 (09:08→18:26)
[2019-05-18] MEDS: Trospium 20 MG TAB PO SCH ×2 (09:11→21:10)
[2019-05-18] MEDS: MEROPENEM 1 GM/50 ML 1 GM in Premix Bag 1 BAG IVPB SCH ×2 (16:07→22:39)
[2019-05-18] MEDS: cefTRIAXone\\ROCEPHIN 1 GM in Sodium Chloride 0.9% 100 ML IVPB SCH (18:26)
[2019-05-18] MEDS: Simvastatin 5 MG TAB PO SCH (21:10)
[2019-05-18] MEDS: traZODone HCl 50 MG TAB PO SCH (21:10)
--- NOTE | 2019-05-19 01:22 | HP ---
CHIEF COMPLAINT: Body aches and fatigue. HISTORY OF PRESENT ILLNESS: The patient is a 63-year-old female who for the past 1-2 days has been feeling increased body weakness, aches, chills, cough, and congestion. She has had low back pain as well, as well as dysuria. She states in the evening prior to admission, she had painful urination and her bladder was actually hanging out. This resolved with a warm bath. On the evening prior to coming to the emergency room, she had a warm bath in response to her painful urination. This helped relieve a lot of her body aches and chills. She felt her bladder had been hanging out and the warm bath felt to retract vaginally. She then went and saw Dr. Burns' nurse practitioner on the day prior to admission. It was felt that she had a bladder infection and was started on antibiotics and given a shot of Rocephin in the office. However, in the next 24 hours, she continued to worsen with increasing pain, chills, body aches, finally calling EMS on the day of admission, which brought her to the emergency room for further evaluation. She has some mild discomfort with breathing, but has a history of COPD and shortness of breath chronically. She has also been dehydrated and reported dizziness and a fall. In the emergency room, IV fluid resuscitation was begun and further evaluation started. She rated her pain at a 5/10 in the ER. It was associated with movement. ER evaluation was unremarkable with her lab except for the positive CVAT findings until her CAT scan returned showing left-sided perinephric stranding indicative of pyelonephritis. Dr. Burns was then contacted at that time for admission of this acutely ill patient. PAST MEDICAL HISTORY: Significant for previous cardiac disease involving 4 stents. She has COPD, was last hospitalized for bronchitis. She has had a history of kidney stones in the past and myocardial infarction. She also has diabetes type 2, hypothyroidism, hyperlipidemia, hypertension, CVA x2, morbid obesity, and asthma. PAST SURGICAL HISTORY: Includes the aforementioned stent placement x4 in her heart, hernia repair, appendectomy, cholecystectomy, hysterectomy, and right tibia surgery. PSYCHIATRIC HISTORY: Significant for anxiety, depression, and most recently confusion with some memory loss, they are attributed to stress. SOCIAL HISTORY: She continues to smoke. She denies alcohol use and she does not work. ALLERGIES: NO KNOWN DRUG ALLERGIES. MEDICATIONS: On admission include, 1. Aspirin 325 mg daily. 2. BuSpar 15 mg daily. 3. Fenofibrate 160 mg daily. 4. Fish oil 1000 mg daily. 5. Imdur 60 mg daily. 6. Levothyroxine 175 mcg daily. 7. Lovastatin 20 mg daily. 8. Meloxicam 15 mg daily. 9. Quinapril 20 mg daily. 10. Sertraline 150 mg daily. 11. Trazodone 100 mg daily. 12. Allopurinol 300 mg daily. 13. She also takes metformin 1000 mg daily. 14. VESIcare 5 mg daily. 15. ProAir inhaler two puffs q.i.d. 16. Advair HFA 115/21 two puffs b.i.d. REVIEW OF SYSTEMS: CONSTITUTIONAL: On admission, the patient complains of general fatigue and weakness as well as chills. HEENT: Significant for dry mucous membranes. No obvious drainage or sores. CHEST: With shortness of breath and cough. CARDIOVASCULAR: States she has some chest pain, usually associated with deep breaths, but no palpitations. GI: Negative for nausea, vomiting, or diarrhea. : Significant for dysuria, but denies blood in urine or stool. MUSCULOSKELETAL: Denies general back pain and general weakness resulting in fall. She has body aches and CVA tenderness. SKIN: Shows no new rashes or ecchymosis or lesions. NEUROLOGIC: She reports being dizzy, but denies headaches trouble with mentation, or focus. HEMOLYTIC/LYMPH: Denies any areas of edema or ecchymosis. PHYSICAL EXAMINATION: At the time of admission, VITAL SIGNS: Blood pressure is 140/80, pulse 95, respirations 18, temperature 99.7. Pain scale 5/10. O2 saturation 95% on room air. GENERAL: This is an elderly female, alert, oriented, and cooperative. HEENT: Normocephalic, atraumatic. Pupils are equal, round, and reactive to light. Extraocular muscles are intact. TMs and nares are clear. Pharynx is dry. NECK: Supple. Trachea is midline. CHEST: With diminished breath sounds throughout. BREASTS: Deferred. HEART: Regular rate and rhythm, which was tachycardic on admission and has now over 120, has now calmed down to 95 beats per minute heart rate. ABDOMEN: Soft, nontender with suprapubic tenderness. No hepatosplenomegaly. BACK: With CVA tenderness on the left. EXTREMITIES: Without clubbing, cyanosis, or edema. Normal range of motion present. SKIN: Without acute rashes or lesions, but poor turgor noted. NEUROLOGIC: Cranial nerves are intact. Unable to test gait and cerebellar function at this time. Sensory exam is grossly intact. LABORATORY DATA: Lab work on admission shows WBCs at 6.9, hemoglobin 12.2, hematocrit 36.8 with platelets at 196. Sodium 137, potassium 3.3, chloride 111, CO2 18, BUN 20, creatinine 0.68 with a GFR of 88, glucose at 92. Lactic acid 0.8. Liver functions elevated at 127 her AST, ALT at 101, alkaline phosphatase at 232. Creatine kinase low at 24. Troponins are negative. Lipase negative. Urinalysis shows glucose greater than 1000 with ketones at 10, 2+ blood is noted with greater than 50 rbc's and greater than [address] of the abdomen shows left-sided perinephric stranding indicative of pyelonephritis and there is also 5 separate calculi and 2 separate inferior renal calices measuring up to 5 mm. There is no sign of obstruction, although there is evidence of prior urinary stone pressure and passage. There is left-sided asymmetrical cortical thinning as evidence of prior reflux or obstruction. Chest x-ray shows chronic changes of COPD, but no acute process. ASSESSMENT: 1. Left-sided pyelonephritis. 2. Chronic obstructive pulmonary disease. 3. Cystitis with hematuria. 4. Dehydration. 5. [id number]-[id number] diabetes. PLAN: Plan will be fluid rehydration, IV antibiotics, pain management, and serial re-evaluation. Job ID: [id number]
[2019-05-19] MEDS: MEROPENEM 1 GM/50 ML 1 GM in Premix Bag 1 BAG IVPB SCH ×3 (05:04→22:05)
[2019-05-19] MEDS: Levothyroxine 175 MCG TAB PO SCH (05:05)
[2019-05-19] MEDS: HYDROcodone/Acetaminophen 5/325 mg Tablet PO PRN ×3 (05:05→22:05)
[2019-05-19] MEDS: Sodium Chloride 0.9% 1,000 ML IV SCH ×2 (05:08→18:17)
[2019-05-19 05:35] LABS: #Basophils 0.1 thou/uL (0.0-0.2); #Eosinphils 0.3 thou/uL (0.0-0.7); #Lymphocytes 1.5 thou/uL (1.20-3.40); #Monocytes 0.5 thou/uL (0.11-0.59); #Neutrophils 2.5 thou/uL (1.40-6.50); %Basophils 1.1 % (0.0-1.0); %Eosinophils 5.3 % (0.0-10.0); %Lymphocytes 30.8 % (21.0-51.0); %Monocytes 10.1 % (0.0-10.0); %Neutrophils 52.7 % (42.0-75.0); Hemoglobin 12.4 g/dL (12.0-16.0); Mean Corpuscular Volume 90.9 fL (78.0-98.0); Mean Platelet Volume 7.4 fL (7.4-10.4); Platelet Count 209 thou/uL (130-400); Red Blood Cell (RBC) Count 4.15 mill/uL (4.20-5.40); White Blood Cell (WBC) Count 4.7 thou/uL (4.8-10.8)
[2019-05-19 07:32] LABS: Anion Gap 10 mmol/L (10-20); BUN (Urea Nitrogen) 15 mg/dL (9.8-20.1); Calc. Creatinine Clearance 113 mL/min (70-130); Calcium 9.1 mg/dL (7.8-10.44); Carbon Dioxide 23 mmol/L (23-31); Cardiac Risk 3.5 (Less than 4.5); Chloride 109 mmol/L (98-107); Cholesterol 156 mg/dl (< 200 Desired); Estimated GFR-MDRD 82; Glucose 126 mg/dL (80-115); HDL Cholesterol 44 mg/dL (>60 Neg Risk); LDL Cholesterol, Calculated 75 mg/dL; Potassium 4.1 mmol/L (3.5-5.1); Sodium 138 mmol/L (136-145); Triglycerides 186 mg/dL (Less than 150)
[2019-05-19] MEDS: busPIRone HCl 5 MG TAB PO SCH (08:57)
[2019-05-19] MEDS: metFORMIN 500 MG TAB PO SCH (08:57)
[2019-05-19] MEDS: Phenazopyridine HCl 97.5 MG TABLET PO SCH ×5 (08:57→18:21)
[2019-05-19] MEDS: Aspirin 325 MG TAB PO SCH (08:58)
[2019-05-19] MEDS: Lisinopril 20 MG TAB PO SCH (08:58)
[2019-05-19] MEDS: Trospium 20 MG TAB PO SCH ×2 (09:05→20:39)
[2019-05-19] MEDS: cefTRIAXone\\ROCEPHIN 1 GM in Sodium Chloride 0.9% 100 ML IVPB SCH (18:17)
[2019-05-19] MEDS: traZODone HCl 50 MG TAB PO SCH (20:38)
[2019-05-19] MEDS: Simvastatin 5 MG TAB PO SCH (20:38)
[2019-05-20] MEDS: Sodium Chloride 0.9% 1,000 ML IV SCH ×4 (01:41→12:33)
[2019-05-20] MEDS: Levothyroxine 175 MCG TAB PO SCH (05:54)
[2019-05-20] MEDS: MEROPENEM 1 GM/50 ML 1 GM in Premix Bag 1 BAG IVPB SCH ×2 (05:54→14:09)
[2019-05-20] MEDS: Lisinopril 20 MG TAB PO SCH ×2 (09:16→21:07)
[2019-05-20] MEDS: Phenazopyridine HCl 97.5 MG TABLET PO SCH ×6 (09:17→17:58)
[2019-05-20] MEDS: busPIRone HCl 5 MG TAB PO SCH (09:18)
[2019-05-20] MEDS: metFORMIN 500 MG TAB PO SCH (09:19)
[2019-05-20] MEDS: Trospium 20 MG TAB PO SCH ×2 (09:26→21:05)
[2019-05-20] MEDS: Aspirin 325 MG TAB PO SCH (09:26)
[2019-05-20] MEDS: Insulin Regular 300 UNITS/3 ML VIAL SC PRN (12:35)
[2019-05-20] MEDS: cefTRIAXone\\ROCEPHIN 1 GM in Sodium Chloride 0.9% 100 ML IVPB SCH (17:57)
[2019-05-20] MEDS: Simvastatin 5 MG TAB PO SCH (21:04)
[2019-05-20] MEDS: traZODone HCl 50 MG TAB PO SCH (21:05)
[2019-05-20] MEDS: Temazepam 15 MG CAP PO SCH (21:07)
--- NOTE | 2019-05-20 23:15 | EKG ---
Test Reason : Blood Pressure : / mmHG Vent. Rate : 095 BPM Atrial Rate : 095 BPM P-R Int : 150 ms QRS Dur : 096 ms QT Int : 366 ms P-R-T Axes : 020 074 007 degrees QTc Int : 459 ms Normal sinus rhythm Possible Left atrial enlargement Borderline ECG Confirmed by BISI GONSALES, FRANCISCO ([id number]), editor greeting card JACKIE GABRIEL ([id number]) on 05/20/2019 11:15:27 PM Referred By: Confirmed By:FRANCISCO MATHEWS MD
[2019-05-21] MEDS: MEROPENEM 1 GM/50 ML 1 GM in Premix Bag 1 BAG IVPB SCH ×4 (00:12→23:07)
[2019-05-21] MEDS: Sodium Chloride 0.9% 1,000 ML IV SCH ×3 (02:58→13:40)
[2019-05-21] MEDS: Levothyroxine 175 MCG TAB PO SCH (06:11)
[2019-05-21 06:50] LABS: #Basophils 0.1 thou/uL (0.0-0.2); #Eosinphils 0.4 thou/uL (0.0-0.7); #Monocytes 0.4 thou/uL (0.11-0.59); #Neutrophils 4.6 thou/uL (1.40-6.50); %Basophils 1.1 % (0.0-1.0); %Eosinophils 4.9 % (0.0-10.0); %Lymphocytes 26.4 % (21.0-51.0); %Monocytes 5.3 % (0.0-10.0); %Neutrophils 62.2 % (42.0-75.0); Hemoglobin 13.8 g/dL (12.0-16.0); Mean Corpuscular HGB CONC 33.1 g/dL (32.0-36.0); Mean Corpuscular Hemoglobin 29.9 pg (27.0-31.0); Mean Corpuscular Volume 90.4 fL (78.0-98.0); Mean Platelet Volume 6.9 fL (7.4-10.4); Platelet Count 242 thou/uL (130-400); RBC Distribution Width 12.8 % (11.5-14.5); Red Blood Cell (RBC) Count 4.61 mill/uL (4.20-5.40); White Blood Cell (WBC) Count 7.4 thou/uL (4.8-10.8)
[2019-05-21 07:09] LABS: Anion Gap 12 mmol/L (10-20); BUN (Urea Nitrogen) 12 mg/dL (9.8-20.1); Calc. Creatinine Clearance 113 mL/min (70-130); Calcium 9.7 mg/dL (7.8-10.44); Carbon Dioxide 25 mmol/L (23-31); Chloride 106 mmol/L (98-107); Estimated GFR-MDRD 82; Glucose 106 mg/dL (80-115); Potassium 4.1 mmol/L (3.5-5.1); Sodium 139 mmol/L (136-145)
[2019-05-21] MEDS: Aspirin 325 MG TAB PO SCH (09:24)
[2019-05-21] MEDS: busPIRone HCl 5 MG TAB PO SCH (09:24)
[2019-05-21] MEDS: Lisinopril 20 MG TAB PO SCH ×2 (09:24→20:21)
[2019-05-21] MEDS: metFORMIN 500 MG TAB PO SCH (09:25)
[2019-05-21] MEDS: Phenazopyridine HCl 97.5 MG TABLET PO SCH ×6 (09:25→18:50)
[2019-05-21] MEDS: Trospium 20 MG TAB PO SCH ×2 (09:30→20:20)
[2019-05-21] MEDS: Insulin Regular 300 UNITS/3 ML VIAL SC PRN ×2 (11:48→17:15)
[2019-05-21] MEDS: cefTRIAXone\\ROCEPHIN 1 GM in Sodium Chloride 0.9% 100 ML IVPB SCH (18:50)
[2019-05-21] MEDS: Temazepam 15 MG CAP PO SCH (20:20)
[2019-05-21] MEDS: Simvastatin 5 MG TAB PO SCH (20:21)
[2019-05-21] MEDS: traZODone HCl 50 MG TAB PO SCH (20:21)
[2019-05-21] MEDS: HYDROcodone/Acetaminophen 5/325 mg Tablet PO PRN (23:10)
[2019-05-22] MEDS: Sodium Chloride 0.9% 1,000 ML IV SCH ×3 (01:45→20:06)
[2019-05-22] MEDS: MEROPENEM 1 GM/50 ML 1 GM in Premix Bag 1 BAG IVPB SCH ×3 (05:03→22:58)
[2019-05-22] MEDS: Levothyroxine 175 MCG TAB PO SCH (05:03)
[2019-05-22] MEDS: Phenazopyridine HCl 97.5 MG TABLET PO SCH ×6 (08:44→18:12)
[2019-05-22] MEDS: Aspirin 325 MG TAB PO SCH (08:47)
[2019-05-22] MEDS: busPIRone HCl 5 MG TAB PO SCH (08:47)
[2019-05-22] MEDS: Trospium 20 MG TAB PO SCH ×2 (08:50→20:05)
[2019-05-22] MEDS: Lisinopril 20 MG TAB PO SCH ×2 (08:52→20:05)
[2019-05-22] MEDS: metFORMIN 500 MG TAB PO SCH (08:53)
[2019-05-22] MEDS ORDERED: Amlodipine 5 MG TAB PO SCH (09:30)
[2019-05-22] MEDS ORDERED: Benzonatate 100 MG CAP PO PRN (09:30)
[2019-05-22] MEDS: HYDROcodone/Acetaminophen 5/325 mg Tablet PO PRN ×2 (12:08→20:06)
[2019-05-22] MEDS: Insulin Regular 300 UNITS/3 ML VIAL SC PRN (18:12)
[2019-05-22] MEDS: cefTRIAXone\\ROCEPHIN 1 GM in Sodium Chloride 0.9% 100 ML IVPB SCH (18:13)
[2019-05-22] MEDS: Temazepam 15 MG CAP PO SCH (20:05)
[2019-05-22] MEDS: Simvastatin 5 MG TAB PO SCH (20:05)
[2019-05-22] MEDS: traZODone HCl 50 MG TAB PO SCH (20:05)
[2019-05-23] MEDS: Levothyroxine 175 MCG TAB PO SCH (05:44)
[2019-05-23] MEDS: HYDROcodone/Acetaminophen 5/325 mg Tablet PO PRN ×3 (05:44→22:25)
[2019-05-23] MEDS: MEROPENEM 1 GM/50 ML 1 GM in Premix Bag 1 BAG IVPB SCH ×3 (05:45→22:16)
[2019-05-23 05:49] LABS: #Basophils 0.1 thou/uL (0.0-0.2); #Eosinphils 0.4 thou/uL (0.0-0.7); #Lymphocytes 2.4 thou/uL (1.20-3.40); #Monocytes 0.5 thou/uL (0.11-0.59); #Neutrophils 4.2 thou/uL (1.40-6.50); %Basophils 1.4 % (0.0-1.0); %Eosinophils 5.3 % (0.0-10.0); %Lymphocytes 31.7 % (21.0-51.0); %Monocytes 6.1 % (0.0-10.0); %Neutrophils 55.5 % (42.0-75.0); Hemoglobin 12.9 g/dL (12.0-16.0); Mean Corpuscular HGB CONC 33.5 g/dL (32.0-36.0); Mean Corpuscular Hemoglobin 30.1 pg (27.0-31.0); Mean Corpuscular Volume 90.1 fL (78.0-98.0); Mean Platelet Volume 7.1 fL (7.4-10.4); Platelet Count 222 thou/uL (130-400); RBC Distribution Width 12.7 % (11.5-14.5); Red Blood Cell (RBC) Count 4.28 mill/uL (4.20-5.40); White Blood Cell (WBC) Count 7.5 thou/uL (4.8-10.8)
[2019-05-23] MEDS ORDERED: Amlodipine 5 MG TAB PO SCH ×2 (09:00→10:00)
[2019-05-23] MEDS: busPIRone HCl 5 MG TAB PO SCH (09:03)
[2019-05-23] MEDS: Phenazopyridine HCl 97.5 MG TABLET PO SCH ×6 (09:03→17:21)
[2019-05-23] MEDS: metFORMIN 500 MG TAB PO SCH (09:04)
[2019-05-23] MEDS: Aspirin 325 MG TAB PO SCH (09:04)
[2019-05-23] MEDS: Lisinopril 20 MG TAB PO SCH ×2 (09:05→20:36)
[2019-05-23] MEDS: Trospium 20 MG TAB PO SCH ×2 (09:06→20:36)
[2019-05-23] MEDS: Sodium Chloride 0.9% 1,000 ML IV SCH ×2 (09:07→17:19)
[2019-05-23] MEDS ORDERED: cloNIDine 0.1 MG TAB PO SCH ×2 (10:00→21:00)
[2019-05-23] MEDS: Insulin Regular 300 UNITS/3 ML VIAL SC PRN (12:45)
[2019-05-23 12:58] LABS: Bacteria/HPF None Seen HPF (None Seen); Bilirubin Negative (Negative); Blood, Urine 2+ (Negative); Clarity Clear (Clear); Glucose, Urine (Dipstick) 500 mg/dL (Negative); Leukocyte Negative Leu/uL (Negative); Nitrite 1+ (Negative); Protein, Urine (Dipstick) 30 mg/dL (Neg-Trace); RBC/HPF Greater than 50 HPF (0-3); Squamous Epithelial 0-3 HPF (0-3); Urobilinogen Normal mg/dL (Less than 2)
[2019-05-23] MEDS: cefTRIAXone\\ROCEPHIN 1 GM in Sodium Chloride 0.9% 100 ML IVPB SCH (17:21)
[2019-05-23] MEDS: Simvastatin 5 MG TAB PO SCH (20:36)
[2019-05-23] MEDS: traZODone HCl 50 MG TAB PO SCH (20:36)
[2019-05-23] MEDS: Temazepam 15 MG CAP PO SCH (20:37)
[2019-05-24] MEDS: HYDROcodone/Acetaminophen 5/325 mg Tablet PO PRN ×2 (02:27→20:40)
[2019-05-24] MEDS: Sodium Chloride 0.9% 1,000 ML IV SCH ×2 (05:08→14:44)
[2019-05-24] MEDS: MEROPENEM 1 GM/50 ML 1 GM in Premix Bag 1 BAG IVPB SCH ×3 (05:09→23:08)
[2019-05-24] MEDS: Levothyroxine 175 MCG TAB PO SCH (05:09)
[2019-05-24 06:03] LABS: Anion Gap 16 mmol/L (10-20); BUN (Urea Nitrogen) 13 mg/dL (9.8-20.1); Calc. Creatinine Clearance 110 mL/min (70-130); Calcium 9.5 mg/dL (7.8-10.44); Carbon Dioxide 23 mmol/L (23-31); Chloride 104 mmol/L (98-107); Estimated GFR-MDRD 80; Glucose 118 mg/dL (80-115); Potassium 4.1 mmol/L (3.5-5.1); Sodium 139 mmol/L (136-145)
[2019-05-24] MEDS: metFORMIN 500 MG TAB PO SCH (09:26)
[2019-05-24] MEDS: Amlodipine 10 MG TAB PO SCH (09:27)
[2019-05-24] MEDS: busPIRone HCl 5 MG TAB PO SCH (09:27)
[2019-05-24] MEDS: cloNIDine 0.2 MG TAB PO SCH ×2 (09:28→10:15)
[2019-05-24] MEDS: Aspirin 325 MG TAB PO SCH (09:28)
[2019-05-24] MEDS: Trospium 20 MG TAB PO SCH ×2 (09:29→20:32)
[2019-05-24] MEDS: Lisinopril 20 MG TAB PO SCH ×2 (09:29→20:39)
--- NOTE | 2019-05-24 10:07 | CT ---
CT ABDOMEN AND PELVIS WITHOUT IV CONTRAST: INDICATIONS: Pyelonephritis. Left abdominal pain. History of kidney stones. COMPARISON: Recent CT abdomen and pelvis from 05/17/2019. FINDINGS: Mild stranding and atelectasis in the left lung base. Liver, spleen and pancreas are unremarkable. Post cholecystectomy change. There is fullness of the left upper collecting structures, consistent with mild left hydro. This is s lightly more prominent than on the recent exam of 05/17/2019. There are nonobstructing calculi in the lower pole collecting structures of the left kidney, as described on the prior study. There is no ev idence of ureteral calculus at the current time. The bladder is distended. There are no calculi seen within the bladder. Findings may represent recent passage of calculi from the left ureter with residu al hydro. Perinephric stranding on the left is again noted, similar to the prior exam. Right urinary tract unremarkable. Small bowel loops appear normal. There is prominent stool throughout the colon with diverticulosis at the sigmoid. No mass or adenopathy. IMPRESSION: Left perinephric stranding, consistent with a history of pyelonephritis. Mild left hydronephrosis. No evidence of ureteral calculus. Findings may represent a recently passed calculus from the left syste m. Nonobstructing calculi in the lower pole collecting structures of the left kidney again noted. POS: KRYSTINA
[2019-05-24] MEDS: Insulin Regular 300 UNITS/3 ML VIAL SC PRN (12:10)
[2019-05-24] MEDS: cefTRIAXone\\ROCEPHIN 1 GM in Sodium Chloride 0.9% 100 ML IVPB SCH (18:18)
[2019-05-24] MEDS: traZODone HCl 50 MG TAB PO SCH (20:31)
[2019-05-24] MEDS: Simvastatin 5 MG TAB PO SCH (20:31)
[2019-05-24] MEDS: Temazepam 15 MG CAP PO SCH (20:32)
[2019-05-25] MEDS: Sodium Chloride 0.9% 1,000 ML IV SCH (05:15)
[2019-05-25] MEDS: MEROPENEM 1 GM/50 ML 1 GM in Premix Bag 1 BAG IVPB SCH (05:29)
[2019-05-25] MEDS: Levothyroxine 175 MCG TAB PO SCH (05:29)
[2019-05-25 06:28] LABS: #Basophils 0.1 thou/uL (0.0-0.2); #Eosinphils 0.3 thou/uL (0.0-0.7); #Lymphocytes 2.6 thou/uL (1.20-3.40); #Monocytes 0.4 thou/uL (0.11-0.59); #Neutrophils 5.7 thou/uL (1.40-6.50); %Basophils 0.8 % (0.0-1.0); %Eosinophils 3.8 % (0.0-10.0); %Lymphocytes 28.4 % (21.0-51.0); %Monocytes 4.1 % (0.0-10.0); Hemoglobin 13.3 g/dL (12.0-16.0); Mean Corpuscular HGB CONC 33.2 g/dL (32.0-36.0); Mean Corpuscular Hemoglobin 30.1 pg (27.0-31.0); Mean Corpuscular Volume 90.6 fL (78.0-98.0); Mean Platelet Volume 7.2 fL (7.4-10.4); Platelet Count 248 thou/uL (130-400); RBC Distribution Width 12.7 % (11.5-14.5); Red Blood Cell (RBC) Count 4.44 mill/uL (4.20-5.40); White Blood Cell (WBC) Count 9.1 thou/uL (4.8-10.8)
[2019-05-25 06:47] LABS: Anion Gap 12 mmol/L (10-20); BUN (Urea Nitrogen) 15 mg/dL (9.8-20.1); Calc. Creatinine Clearance 129 mL/min (70-130); Calcium 9.8 mg/dL (7.8-10.44); Carbon Dioxide 25 mmol/L (23-31); Chloride 103 mmol/L (98-107); Estimated GFR-MDRD Greater than 90; Glucose 105 mg/dL (80-115); Sodium 136 mmol/L (136-145)
[2019-05-25] MEDS: busPIRone HCl 5 MG TAB PO SCH (09:21)
[2019-05-25] MEDS: cloNIDine 0.1 MG TAB PO SCH ×2 (09:21→20:03)
[2019-05-25] MEDS: Amlodipine 10 MG TAB PO SCH (09:22)
[2019-05-25] MEDS: Aspirin 325 MG TAB PO SCH (09:22)
[2019-05-25] MEDS: Lisinopril 20 MG TAB PO SCH ×2 (09:28→20:03)
[2019-05-25] MEDS: metFORMIN 500 MG TAB PO SCH (09:28)
[2019-05-25] MEDS: Trospium 20 MG TAB PO SCH ×2 (09:29→20:07)
[2019-05-25] MEDS: HYDROcodone/Acetaminophen 5/325 mg Tablet PO PRN ×3 (09:34→20:05)
[2019-05-25] MEDS: Temazepam 15 MG CAP PO SCH (20:02)
[2019-05-25] MEDS: Simvastatin 5 MG TAB PO SCH (20:03)
[2019-05-25] MEDS: traZODone HCl 50 MG TAB PO SCH (20:03)
[2019-05-26 05:24] LABS: #Basophils 0.1 thou/uL (0.0-0.2); #Eosinphils 0.3 thou/uL (0.0-0.7); #Lymphocytes 2.7 thou/uL (1.20-3.40); #Monocytes 0.4 thou/uL (0.11-0.59); #Neutrophils 4.9 thou/uL (1.40-6.50); %Basophils 0.8 % (0.0-1.0); %Eosinophils 3.6 % (0.0-10.0); %Lymphocytes 32.1 % (21.0-51.0); %Monocytes 4.8 % (0.0-10.0); %Neutrophils 58.6 % (42.0-75.0); Hemoglobin 12.7 g/dL (12.0-16.0); Mean Corpuscular HGB CONC 32.9 g/dL (32.0-36.0); Mean Corpuscular Hemoglobin 29.6 pg (27.0-31.0); Mean Platelet Volume 6.7 fL (7.4-10.4); Platelet Count 260 thou/uL (130-400); RBC Distribution Width 12.6 % (11.5-14.5); Red Blood Cell (RBC) Count 4.29 mill/uL (4.20-5.40); White Blood Cell (WBC) Count 8.3 thou/uL (4.8-10.8)
[2019-05-26] MEDS: Levothyroxine 175 MCG TAB PO SCH (05:40)
[2019-05-26 07:45] VITALS: BP 140/79; TEMP 97.9
[2019-05-26] MEDS: Aspirin 325 MG TAB PO SCH (09:51)
[2019-05-26] MEDS: busPIRone HCl 5 MG TAB PO SCH (09:52)
[2019-05-26] MEDS: cloNIDine 0.1 MG TAB PO SCH (09:52)
[2019-05-26] MEDS: metFORMIN 500 MG TAB PO SCH (09:53)
[2019-05-26] MEDS: Trospium 20 MG TAB PO SCH (09:53)
[2019-05-26] MEDS: Amlodipine 10 MG TAB PO SCH (09:54)
[2019-05-26] MEDS: Lisinopril 20 MG TAB PO SCH (11:01)
--- NOTE | 2019-05-29 00:14 | PQF ---
MAGALI CLAYTON MICHAEL E MD [id number] SURG B- [id number] CLINICAL DOCUMENTATION CLARIFICATION FORM: POST DISCHARGE Addendum to original discharge summary date: ____ Late entry note date: __ DATE:05/29/19 ATTN:Grant Figueroa Please exercise your independent, professional judgment in responding to the clarification form. Clinical indicators are provided on the bottom of this form for your review Please check appropriate box(s) to clarify if the following diagnosis has been ruled in or ruled out: SEPSIS [ x ] Ruled in diagnosis [ x ] Continue to treat [ ] Resolved [ ] Ruled out diagnosis [ ] Cannot rule out diagnosis [ ] Other diagnosis [ ] Unable to determine In addition, please specify: Present on Admission (POA): [ x ] Yes [ ] No [ ] Unable to determine For continuity of documentation, please document condition throughout progress notes and discharge summary. Thank You. CLINICAL INDICATORS - SIGNS / SYMPTOMS / LABS ED Notes 05/18 "Sepsis" ED Notes 05/18 "patient presents with evaluation of body aches" ED Notes 05/18 "reports chills,weakness and dehydration" ED Notes 05/18 "patient also meets sepsus criteria with tachycardia and tachypenia" HP 05/18 "left sided pyelonephritis" HP 05/18 "Cystitis with hematuria" RISK FACTORS ED Notes 05/18-63 years old female ED Notes 05/18-DM ED Notes 05/18-Obesity HP 05/18-Smoker HP 05/18-Pyelonephritis HP 05/18-Kidney calculus HP 05/18-Cystitis with hematuria TREATMENTS Collected 05/17-Abdomen/Pelvis CT ED Notes 05/18-Urine culture ED Notes 05/18-IVF ED Notes 05/18-Sepsis protocol initiated OCT 16-Rocephin 2gm IV (This form is maintained as a part of the permanent medical record) 2014 [employer]. All Rights Reserved [email or web address] [not provided] MTDD
== END 2019-05-26 11:41 | disposition home or self-care (01) | DRG 872 ==
LOC: ERS 17:37 → SURG B 20:15 → OBSVTOIN 05-18 08:46
PROVIDERS: ADMIT Specialist; ATTEND Specialist
DX: A41.9 Sepsis, unspecified organism (principal); J44.1 Chronic obstructive pulmonary disease with (acute) exacerbation; I69.351 Hemiplegia and hemiparesis following cerebral infarction affecting right dominant side; N30.91 Cystitis, unspecified with hematuria; N20.0 Calculus of kidney; I25.2 Old myocardial infarction; E11.9 Type 2 diabetes mellitus without complications; E03.9 Hypothyroidism, unspecified; E78.5 Hyperlipidemia, unspecified; E78.00 Pure hypercholesterolemia, unspecified; I10 Essential (primary) hypertension; F32.9 Major depressive disorder, single episode, unspecified; F41.9 Anxiety disorder, unspecified; F17.210 Nicotine dependence, cigarettes, uncomplicated; E86.0 Dehydration; E66.01 Morbid (severe) obesity due to excess calories; Z91.81 History of falling; Z95.5 Presence of coronary angioplasty implant and graft; Z90.49 Acquired absence of other specified parts of digestive tract; Z90.710 Acquired absence of both cervix and uterus; Z79.84 Long term (current) use of oral hypoglycemic drugs; Z79.82 Long term (current) use of aspirin; Z79.51 Long term (current) use of inhaled steroids; Z79.899 Other long term (current) drug therapy; Z68.35 Body mass index [BMI] 35.0-35.9, adult
CPT/HCPCS: 36415; 36416; 51701; 71045; 74176; 80048; 80053; 80061; 81001; 81003; 81015; 82550; 83605; 83690; 84443; 84484; 85025; 87040; 87086; 87804; 93005; 96360; 96361; 96365; 96367; A4353; J0696; J1815; J2185; J3490

== ENCOUNTER 2019-06-07 15:26 | Emergency (ER) | payer MEDICARE ==
[2019-06-07 17:26] LABS: #Basophils 0.1 thou/uL (0.0-0.2); #Eosinphils 0.3 thou/uL (0.0-0.7); #Monocytes 0.4 thou/uL (0.11-0.59); #Neutrophils 5.8 thou/uL (1.40-6.50); %Eosinophils 3.4 % (0.0-10.0); %Lymphocytes 23.2 % (21.0-51.0); %Monocytes 4.8 % (0.0-10.0); %Neutrophils 67.7 % (42.0-75.0); Hemoglobin 13.2 g/dL (12.0-16.0); Mean Corpuscular HGB CONC 33.3 g/dL (32.0-36.0); Mean Corpuscular Hemoglobin 29.9 pg (27.0-31.0); Mean Corpuscular Volume 89.7 fL (78.0-98.0); Mean Platelet Volume 7.4 fL (7.4-10.4); Platelet Count 241 thou/uL (130-400); RBC Distribution Width 12.8 % (11.5-14.5); Red Blood Cell (RBC) Count 4.41 mill/uL (4.20-5.40); White Blood Cell (WBC) Count 8.6 thou/uL (4.8-10.8)
[2019-06-07 17:53] LABS: ALT (SGPT) 9 U/L (8-55); AST (SGOT) 13 U/L (5-34); Albumin 4.2 g/dL (3.4-4.8); Alkaline Phosphatase 94 U/L (40-110); Anion Gap 13 mmol/L (10-20); BUN (Urea Nitrogen) 23 mg/dL (9.8-20.1); Bilirubin, Total 0.3 mg/dL (0.2-1.2); Calc. Creatinine Clearance 0 mL/min (70-130); Calcium 9.5 mg/dL (7.8-10.44); Carbon Dioxide 24 mmol/L (23-31); Chloride 106 mmol/L (98-107); Estimated GFR-MDRD 55; Globulin 3.1 g/dL (2.4-3.5); Glucose 93 mg/dL (80-115); Potassium 4.3 mmol/L (3.5-5.1); Protein, Total 7.3 g/dL (6.0-8.3); Sodium 139 mmol/L (136-145)
[2019-06-07 18:36] LABS: Bilirubin Negative (Negative); Blood, Urine Negative (Negative); Clarity Clear (Clear); Glucose, Urine (Dipstick) Greater than 1000 mg/dL (Negative); Leukocyte Negative Leu/uL (Negative); Nitrite Negative (Negative); Protein, Urine (Dipstick) Negative (Neg-Trace); Urobilinogen Normal mg/dL (Less than 2)
[2019-06-07] MEDS ORDERED: Morphine 4 MG/ML VIAL ONE (19:04)
[2019-06-07] MEDS ORDERED: Ondansetron PF 4 MG/2 ML Vial ONE (19:04)
--- NOTE | 2019-06-07 19:49 | CT ---
CT OF THE ABDOMEN AND PELVIS WITH IV CONTRAST INDICATION: History of left-sided abdominal pain and left-sided pyelonephritis COMPARISON: Noncontrast CT the abdomen and pelvis dated 2 2018 FINDINGS: ABDOMEN: Lung bases: Bibasilar atelectasis Liver: No focal lesion. Gallbladder: Surgically absent Pancreas: Normal. Adrenal glands: Normal. Spleen: Normal. Kidneys and ureters: There is improvement in the left-sided perinephric stranding seen from the prior exam. There is resolution of left-sided hydronephrosis. Left nephrolithiasis is stable. There is symmetric enhancement bilaterally. Vasculature: There is moderate calcification involving the abdominal pelvic vasculature. Lymph nodes:No lymphadenopathy. Free fluid in abdomen:No free fluid is evident. PELVIS: Small and large bowel: There is a moderate amount of retained stool within the colon. There are a few scattered diverticula without evidence of active colonic diverticulitis Appendix:Not demonstrated Bladder: Normal. Rectal and perirectal soft tissues:Normal. Reproductive structures: Surgically absent Free fluid in pelvis: No free fluid is evident. Lymphadenopathy pelvis: No lymphadenopathy is evident. Osseous structures: No acute osseous abnormality. No destructive osteolytic or osteoblastic lesion i s identified. There is scattered degenerative and osteoarthritic changes. Soft tissues:Normal. IMPRESSION: 1. Improvement in the left-sided perinephric stranding and left-sided hydronephrosis. No residual hyd ronephrosis is demonstrated. Stable left nephrolithiasis. 2. Moderate amount retained stool within the colon.
[2019-06-07] MEDS ORDERED: Aspirin Chewable 81 MG TAB ONE (20:58)
== END 2019-06-07 20:58 | disposition home or self-care (01) ==
LOC: ERS 15:26
DX: M54.5 Low back pain (principal); R10.9 Unspecified abdominal pain; E11.9 Type 2 diabetes mellitus without complications; E03.9 Hypothyroidism, unspecified; I25.2 Old myocardial infarction; E78.5 Hyperlipidemia, unspecified; E78.00 Pure hypercholesterolemia, unspecified; J44.9 Chronic obstructive pulmonary disease, unspecified; I10 Essential (primary) hypertension; F41.9 Anxiety disorder, unspecified; F31.9 Bipolar disorder, unspecified; F17.210 Nicotine dependence, cigarettes, uncomplicated; Z86.73 Personal history of transient ischemic attack (TIA), and cerebral infarction without residual deficits; Z87.442 Personal history of urinary calculi; Z79.899 Other long term (current) drug therapy; Z79.82 Long term (current) use of aspirin; Z79.51 Long term (current) use of inhaled steroids
CPT/HCPCS: 36415; 74177; 80053; 81003; 83605; 85025; 87040; 87086; 96374; 96375; A4353; J2270; J2405

== ENCOUNTER 2019-11-09 13:58 | Observation (INO) | payer MEDICARE ==
[~2019-11-09 13:58] MED LIST changes: -Iopamidol 370 76% 100 ML VIAL ONE; +Iopamidol-370 76% 500 ML 1 ML ONE
[2019-11-09] MEDS ORDERED: Ondansetron PF 4 MG/2 ML Vial ONE (14:28)
[2019-11-09 14:47] LABS: #Basophils 0.1 thou/uL (0.0-0.2); #Eosinphils 0.2 thou/uL (0.0-0.7); #Lymphocytes 1.7 thou/uL (1.20-3.40); #Monocytes 0.5 thou/uL (0.11-0.59); #Neutrophils 6.1 thou/uL (1.40-6.50); %Basophils 1.1 % (0.0-1.0); %Eosinophils 2.6 % (0.0-10.0); %Lymphocytes 19.7 % (21.0-51.0); %Monocytes 5.4 % (0.0-10.0); %Neutrophils 71.2 % (42.0-75.0); Hemoglobin 14.5 g/dL (12.0-16.0); Mean Corpuscular HGB CONC 33.1 g/dL (32.0-36.0); Mean Corpuscular Hemoglobin 30.3 pg (27.0-31.0); Mean Corpuscular Volume 91.3 fL (78.0-98.0); Mean Platelet Volume 7.1 fL (7.4-10.4); Platelet Count 211 thou/uL (130-400); RBC Distribution Width 13.3 % (11.5-14.5); Red Blood Cell (RBC) Count 4.79 mill/uL (4.20-5.40); White Blood Cell (WBC) Count 8.5 thou/uL (4.8-10.8)
--- NOTE | 2019-11-09 15:11 | RAD ---
CHEST 1 VIEW: Date: 11/09/2019 INDICATION: Nausea, vomiting, diarrhea, and chills. COMPARISON: Prior exam dated 05/17/2019. FINDINGS: No consolidation is evident. Chronic lung changes are stable. Mild cardiomegaly is stable. There is n o evidence for CHF. No acute osseous abnormality is evident. IMPRESSION: Stable chronic findings. No acute cardiopulmonary abnormality. POS: BH
[2019-11-09 15:13] LABS: ALT (SGPT) 32 U/L (8-55); AST (SGOT) 36 U/L (5-34); Albumin 4.6 g/dL (3.4-4.8); Alkaline Phosphatase 90 U/L (40-110); Anion Gap 16 mmol/L (10-20); BUN (Urea Nitrogen) 30 mg/dL (9.8-20.1); Bilirubin, Total 0.3 mg/dL (0.2-1.2); Calc. Creatinine Clearance 0 mL/min (70-130); Calcium 10.1 mg/dL (7.8-10.44); Carbon Dioxide 25 mmol/L (23-31); Chloride 102 mmol/L (98-107); Estimated GFR-MDRD 58; Globulin 3.3 g/dL (2.4-3.5); Glucose 149 mg/dL (80-115); Lipase 7 U/L (8-78); Potassium 4.5 mmol/L (3.5-5.1); Protein, Total 7.9 g/dL (6.0-8.3); Sodium 138 mmol/L (136-145)
--- NOTE | 2019-11-09 15:42 | CT ---
EXAM: BRAIN CT WITHOUT IV CONTRAST: 11/09/19 HISTORY: Nausea and vomiting and diarrhea. COMPARISON: 02/02/17. FINDINGS: Minimal motion artifact. Evidence for a partial empty sella. No focal mass or midline shift. No intra or extra-axial hemorrhage. Sinuses and mastoids are clear. IMPRESSION: No significant acute intracranial process. Stable partially empty sella. No change from prior study. POS: [facility]
--- NOTE | 2019-11-09 15:52 | CT ---
CT OF THE ABDOMEN AND PELVIS WITH IV CONTRAST: 11/09/19 INDICATION: History of 64-year-old female with nausea, vomiting and diarrhea that began last night. Patient has e pisodic lightheadedness and vertiginous type feeling for the last week. COMPARISON: CT of the abdomen and pelvis with contrast dated 06/07/19. FINDINGS: There is mild subsegmental atelectasis involving both lower lobes. No focal hepatic lesion is evident . The gallbladder is surgically absent. The pancreas, adrenal glands and kidneys are not appreciably changed from the prior exam. No acute abnormality is evident. There is stable nephrolithiasis involvi ng the inferior pole of the left kidney. There are two 5 mm stones involving the inferior pole of the left kidney. No hydronephrosis is evident. Spleen is normal appearing. No free fluid or enlarged lym ph nodes are evident. There are moderate calcifications involving the abdominal aorta. There is scattered diverticula involving the sigmoid colon without evidence of active diverticulitis. The appendix is not definitely seen. The small bowel is of normal caliber. Reproductive structures a re surgically absent. The bladder, rectum, and perirectal soft tissues are normal appearing. No defin ite acute osseous abnormality is evident. There is scattered degenerative and osteoarthritic change. There is healed fracture deformity involving the right lateral 6th rib. There is an ununited left lat eral 9th rib fracture. IMPRESSION: No definite acute CT abnormality. Stable left nephrolithiasis. Stable cholecystectomy and hysterectomy changes. Colonic diverticulosis without evidence of active diverticulitis. Other chronic findings as above. POS:
[2019-11-09 16:46] LABS: Bacteria/HPF None Seen HPF (None Seen); Bilirubin Negative (Negative); Blood, Urine Negative (Negative); Clarity Clear (Clear); Glucose, Urine (Dipstick) Greater than 1000 mg/dL (Negative); Leukocyte 25 Leu/uL (Negative); Nitrite Negative (Negative); Protein, Urine (Dipstick) Negative (Neg-Trace); RBC/HPF 0-3 HPF (0-3); Squamous Epithelial None Seen HPF (0-3); Urobilinogen Normal mg/dL (Less than 2); WBC/HPF 0-3 HPF (0-3)
[2019-11-09] MEDS ORDERED: Aspirin 325 MG TAB ONE (16:46)
[2019-11-09 18:31] VITALS: BMI 34.2
[2019-11-09] MEDS ORDERED: Ketorolac Tromethamine 30 MG/ML VIAL IM PRN (18:35)
[2019-11-09] MEDS: Sodium Chloride 0.9% 1,000 ML IV SCH (18:44)
[2019-11-09] MEDS: traZODone HCl 50 MG TAB PO SCH (21:49)
[2019-11-10] MEDS: Sodium Chloride 0.9% 1,000 ML IV SCH ×2 (04:24→16:58)
[2019-11-10 04:36] LABS: #Basophils 0.1 thou/uL (0.0-0.2); #Eosinphils 0.3 thou/uL (0.0-0.7); #Lymphocytes 2.6 thou/uL (1.20-3.40); #Monocytes 0.5 thou/uL (0.11-0.59); #Neutrophils 3.9 thou/uL (1.40-6.50); %Basophils 0.9 % (0.0-1.0); %Eosinophils 4.7 % (0.0-10.0); %Lymphocytes 35.6 % (21.0-51.0); %Monocytes 6.2 % (0.0-10.0); %Neutrophils 52.6 % (42.0-75.0); Hemoglobin 13.1 g/dL (12.0-16.0); Mean Corpuscular HGB CONC 32.9 g/dL (32.0-36.0); Mean Corpuscular Hemoglobin 30.3 pg (27.0-31.0); Mean Platelet Volume 7.1 fL (7.4-10.4); Platelet Count 159 thou/uL (130-400); RBC Distribution Width 13.3 % (11.5-14.5); Red Blood Cell (RBC) Count 4.32 mill/uL (4.20-5.40); White Blood Cell (WBC) Count 7.3 thou/uL (4.8-10.8)
[2019-11-10 04:42] LABS: Hemoglobin A1c 6.5 % (4.0-6.0)
[2019-11-10 05:02] LABS: Anion Gap 10 mmol/L (10-20); BUN (Urea Nitrogen) 23 mg/dL (9.8-20.1); Calc. Creatinine Clearance 96 mL/min (70-130); Calcium 9.3 mg/dL (7.8-10.44); Carbon Dioxide 27 mmol/L (23-31); Cardiac Risk 3.3 (Less than 4.5); Chloride 106 mmol/L (98-107); Cholesterol 172 mg/dl (< 200 Desired); Estimated GFR-MDRD 72; Glucose 109 mg/dL (80-115); HDL Cholesterol 52 mg/dL (>60 Neg Risk); LDL Cholesterol, Calculated 80 mg/dL; Potassium 4.2 mmol/L (3.5-5.1); Sodium 139 mmol/L (136-145); Triglycerides 198 mg/dL (Less than 150)
[2019-11-10] MEDS ORDERED: Ondansetron ODT 8 MG TAB PO PRN (08:05)
[2019-11-10] MEDS ORDERED: Diphenoxylate HCl/Atropine Tablet PO PRN (08:05)
[2019-11-10] MEDS ORDERED: Diphenoxylate HCl/Atropine Tablet PO SCH (08:15)
--- NOTE | 2019-11-10 08:38 | MRI ---
EXAM: MRI Brain WO Con PROVIDED CLINICAL HISTORY: Vertigo COMPARISON: None FINDINGS: The ventricular system appears normal in size and morphology. There is no evidence for intracranial h emorrhage. There is no shift of the midline structures. The basilar cisterns are patent. No evidence for stricture diffusion to suggest recent infarction. No significant intra-axial signal abno rmality. Appropriate flow voids are seen within the major intracranial vessels. The extracranial soft tissues and calvarial marrow signal demonstrate a normal MR appearance. IMPRESSION: No evidence for an acute intracranial abnormality.
--- NOTE | 2019-11-10 08:51 | HP ---
CHIEF COMPLAINT ON ADMISSION: Vertiginous episodes with vomiting and diarrhea. HISTORY OF PRESENT ILLNESS: The patient is a 64-year-old female with previous history of CVAs, who had sudden onset of vertigo the night before. She since that time has been having episodes of nausea and dry heaves. She has also had associated diarrhea and also associated with this was some abdominal pain that was mild cramping in nature that began the week before. She has noted falling on a couple of episodes due to the dizziness and notes a left-sided headache, but will deny head trauma. The patient went to the emergency room for further evaluation. There CT scan of the abdomen and head failed to show any acute problems at that time and her lab returned unremarkable except for the fact of her history of previous CVAs. It was felt necessary to make sure this was not another cerebellar CVA. She did have associated chills during this time. She could not get relief from any of the [id number]-[id number] medications that she had tried. PAST MEDICAL HISTORY: Significant for, as mentioned before, right-sided CVAs, coronary artery disease with bypass surgery, stents have been put in place, history of kidney stones, history of acute [place]. She has type 2 diabetes, hypothyroidism, hyperlipidemia, hypertension, COPD with asthma. PAST SURGICAL HISTORY: Includes the aforementioned stent placement x4; hernia repair umbilically; appendectomy; cholecystectomy; hysterectomy, that took 3 procedures to eventually remove all the ovaries and uterus; right tibial surgery with recent tibial trauma. SOCIAL HISTORY: Denies alcohol or drug use. Long-time smoker, continues to smoke 1/2 pack per day. PSYCHIATRIC HISTORY: Significant for anxiety and depression. FAMILY HISTORY: Not significant. ALLERGIES: SHE HAS NO KNOWN DRUG ALLERGIES. CURRENT MEDICATIONS: On admission include 1. Aspirin 325 daily. 2. BuSpar 15 mg daily. 3. Fenofibrate 160 mg daily. 4. Imdur 60 mg daily. 5. Levothyroxine 175 mcg daily. 6. Lovastatin 20 mg daily. 7. Meloxicam 15 mg daily. 8. Quinapril 20 mg daily. 9. Sertraline 150 mg daily. 10. Trazodone 100 mg at bedtime. 11. Allopurinol 300 mg daily. 12. Metformin 1000 mg daily. 13. Ditropan 5 mg daily. 14. Advair HFA 115 one puff b.i.d. 15. Bentyl 20 mg p.r.n. abdominal cramps. REVIEW OF SYSTEMS: At the time of admission is positive for chills, but denies overt fever. She has fatigue. HEENT: Denies sores or pain in eyes, ears, nose, or throat. CARDIOVASCULAR: Denies palpitations or chest pain per se. RESPIRATORY: Denies cough or dyspnea. GI: Admits to diarrhea, nausea, and vomiting. : Denies blood in urine or stool or urinary frequency or pain. MUSCULOSKELETAL: Denies any new aches or pains. She hurts from recent trauma to the right knee and is worried about the hardware being loose. SKIN: No new rashes or lesions. NEUROLOGIC: She has severe dizziness when she moves. When she does not move, it is making her nauseated. Denies blurred vision. 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 HEMOLYTIC/LYMPH: No new areas of swelling, edema or lymph node enlargement. PHYSICAL EXAMINATION: At the time of admission. VITAL SIGNS: Blood pressure on arrival was 130/70, pulse 82, respirations 19, temperature 98.6. Pain scale 6/10. O2 saturation 97% on room air. GENERAL: This is a well-developed, well-nourished, mildly obese female with obvious cataract formation in the left eye secondary to trauma long ago. HEENT: Normocephalic, atraumatic. Right pupil is equal, round, reactive to light with extraocular muscles intact. TMs, nares, and pharynx are clear. NECK: Supple, trachea midline. CHEST: Clear to auscultation. HEART: Regular rate and rhythm without murmur. BREASTS: Deferred. ABDOMEN: Soft, nontender without hepatosplenomegaly. : Deferred. EXTREMITIES: Without clubbing, cyanosis, or edema. Normal range of motion present. Symmetric muscular tone and development noted. SKIN: Without acute rashes or lesions or evidence of trauma. NEUROLOGIC: Cranial nerves, except for the vision in left eye, are intact. Gait and cerebral function normal. Sensory exam is intact. Mental status is baseline and nonfocal. LABORATORY DATA: Lab work thus far showed WBCs with 8.5, hemoglobin 14.5, hematocrit 43.8, platelets of 211. Sodium 138, potassium 4.5, chloride 102, CO2 of 25, BUN 30, creatinine 0.9 with a GFR of 58, and glucose 149. Calcium 10.1. Liver functions unremarkable. Troponin negative. Total cholesterol 172. LDLs are 80 and HDL is 52. Lipase 7. Urinalysis shows specific gravity little high at 0.42 with greater than 1000 glucose, otherwise unremarkable. CT scans of head and abdomen unremarkable. ASSESSMENT: 1. Vertigo with history of cerebrovascular accident. 2. Gastrointestinal virus with nausea and vomiting. PLAN: Plan will be neuro and vitals checks over the next 24 hours with MRI to assess for possible occult CVA. Symptomatic treatment of the vertigo and followup per results. Job ID: [id number]
[2019-11-10] MEDS ORDERED: Scopolamine 1.5 mg/72 hour Patch TOP SCH (09:00)
--- NOTE | 2019-11-10 09:01 | RAD ---
EXAM: XR Knee Rt 2 View PROVIDED CLINICAL HISTORY: Pain COMPARISON: None FINDINGS: There is no evidence for fracture or other acute osseous abnormality. Medial femorotibial joint space narrowing with tricompartmental osteophyte formation. Postoperative changes are seen involving the proximal tibia, without evidence for hardware loosening or migration. Alignment appears anatomic. Jessica nt spaces appear otherwise preserved. No evidence for significant knee joint capsular distention. IMPRESSION: Advanced degenerative arthrosis of the medial femorotibial compartment.
[2019-11-10] MEDS: HYDROcodone/Acetaminophen 5/325 mg Tablet PO PRN ×3 (09:23→20:23)
[2019-11-10] MEDS: Aspirin Chewable 81 MG TAB PO SCH (09:26)
[2019-11-10] MEDS: busPIRone HCl 10 MG TAB PO SCH (09:27)
[2019-11-10] MEDS: Lisinopril 20 MG TAB PO SCH (09:28)
[2019-11-10] MEDS: metFORMIN 500 MG TAB PO SCH (09:28)
[2019-11-10] MEDS: Mometasone 100 MCG/Formoterol 5 MCG 120 PUFF INHALER INH SCH (18:49)
[2019-11-10] MEDS: traZODone HCl 50 MG TAB PO SCH (20:20)
[2019-11-11] MEDS: Sodium Chloride 0.9% 1,000 ML IV SCH ×2 (01:41→13:00)
[2019-11-11] MEDS: Mometasone 100 MCG/Formoterol 5 MCG 120 PUFF INHALER INH SCH (07:08)
[2019-11-11] MEDS: metFORMIN 500 MG TAB PO SCH (08:50)
[2019-11-11] MEDS: Aspirin Chewable 81 MG TAB PO SCH (08:50)
[2019-11-11] MEDS: Lisinopril 20 MG TAB PO SCH (08:50)
[2019-11-11] MEDS: busPIRone HCl 10 MG TAB PO SCH (08:51)
[2019-11-11 10:12] VITALS: BP 158/78; TEMP 98.3
== END 2019-11-11 12:28 | disposition home or self-care (01) ==
LOC: ERS 13:58 → 2SE 17:25
PROVIDERS: ADMIT Specialist; ATTEND Specialist
DX: A08.4 Viral intestinal infection, unspecified (principal); E03.9 Hypothyroidism, unspecified; E11.9 Type 2 diabetes mellitus without complications; E78.5 Hyperlipidemia, unspecified; I10 Essential (primary) hypertension; I25.10 Atherosclerotic heart disease of native coronary artery without angina pectoris; J44.9 Chronic obstructive pulmonary disease, unspecified; F41.9 Anxiety disorder, unspecified; F32.9 Major depressive disorder, single episode, unspecified; F17.210 Nicotine dependence, cigarettes, uncomplicated; Z79.82 Long term (current) use of aspirin; Z79.84 Long term (current) use of oral hypoglycemic drugs; Z79.899 Other long term (current) drug therapy; Z86.73 Personal history of transient ischemic attack (TIA), and cerebral infarction without residual deficits; Z91.02 Food additives allergy status; Z95.1 Presence of aortocoronary bypass graft
CPT/HCPCS: 70450; 70551; 71045; 73560; 74177; 80048; 80053; 80061; 82962 ×3; 83036; 83690; 84484; 85025 ×2; 87086; 93005; 94640 ×2; 96361 ×4; 96374; 96375; 99285; G0378 ×4; 36415; 36416; 81003; 81015; J1885; J2405; Q9967

== ENCOUNTER 2019-12-21 09:38 | Outpatient (CLI) | payer MEDICARE ==
--- NOTE | 2019-12-21 12:45 | RAD ---
FOUR VIEWS RIGHT KNEE: COMPARISON: 02/02/2017. HISTORY: Right knee pain. FINDINGS: Four views right knee show no evidence of acute fracture or dislocation. Postsurgical change is seen in the proximal tibia. No knee effusion is seen. Mild to moderate tricompartmental joint space mavis rowing and osteophyte formation is seen consistent with osteoarthritis. IMPRESSION: Mild to moderate right knee osteoarthritis without acute osseous abnormality. POS: MABLEA
--- NOTE | 2019-12-21 12:47 | RAD ---
THREE VIEWS RIGHT RIBS: HISTORY: Fall with right rib pain. COMPARISON: CTA of the chest 03/24/2018. FINDINGS: Three views right ribs show fractures of the lateral mid ribs. This is likely involving the 6th and 7th ribs. There may be remodeling and these fractures may be remote rather than acute. Acute on chr onic fractures cannot be entirely excluded. No underlying pneumothorax or pleural thickening are see n. IMPRESSION: Right 6th and 7th lateral fractures. These appear chronic and were seen on prior CT in 2018. Acute on chronic fractures cannot be entirely excluded. POS: SHRUTI
== END 2019-12-21 09:39 | disposition home or self-care (01) ==
LOC: BICRAD 09:38
PROVIDERS: ATTEND Specialist
DX: M25.561 Pain in right knee (principal); R07.81 Pleurodynia; S22.41XA Multiple fractures of ribs, right side, initial encounter for closed fracture; M17.11 Unilateral primary osteoarthritis, right knee

== ENCOUNTER 2020-01-16 22:02 | Observation (INO) | payer MEDICARE ==
--- NOTE | 2020-01-16 22:30 | RAD ---
XR Chest 1 View Portable HISTORY: Chest pain COMPARISON: 11/09/2019 FINDINGS: The heart size is at upper limits of normal normal. The lungs are well expanded without foc al areas of consolidation, pneumothorax or pleural effusions. Mild chronic changes again seen. There are degenerative changes in the spine.. IMPRESSION: No radiographic evidence of acute cardiopulmonary process.
[2020-01-16 22:40] LABS: #Basophils 0.1 thou/uL (0.0-0.2); #Eosinphils 0.2 thou/uL (0.0-0.7); #Lymphocytes 2.3 thou/uL (1.20-3.40); #Monocytes 0.4 thou/uL (0.11-0.59); %Basophils 1.1 % (0.0-1.0); %Eosinophils 3.2 % (0.0-10.0); %Lymphocytes 32.5 % (21.0-51.0); %Monocytes 6.1 % (0.0-10.0); %Neutrophils 57.1 % (42.0-75.0); Hemoglobin 13.1 g/dL (12.0-16.0); Mean Corpuscular HGB CONC 32.8 g/dL (32.0-36.0); Mean Corpuscular Hemoglobin 29.8 pg (27.0-31.0); Platelet Count 205 thou/uL (130-400); RBC Distribution Width 13.4 % (11.5-14.5); White Blood Cell (WBC) Count 7.1 thou/uL (4.8-10.8)
[2020-01-16 22:59] LABS: ALT (SGPT) 34 U/L (8-55); AST (SGOT) 28 U/L (5-34); Albumin 4.1 g/dL (3.4-4.8); Alkaline Phosphatase 93 U/L (40-110); Anion Gap 14 mmol/L (10-20); BUN (Urea Nitrogen) 18 mg/dL (9.8-20.1); Bilirubin, Total 0.3 mg/dL (0.2-1.2); CK (CPK) 64 U/L (29-168); Calc. Creatinine Clearance 0 mL/min (70-130); Calcium 9.2 mg/dL (7.8-10.44); Carbon Dioxide 24 mmol/L (23-31); Chloride 104 mmol/L (98-107); Estimated GFR-MDRD 67; Glucose 198 mg/dL (80-115); Protein, Total 7.1 g/dL (6.0-8.3); Sodium 138 mmol/L (136-145)
[2020-01-17] MEDS ORDERED: Zolpidem Tartrate 5 MG TAB PO PRN (01:09)
[2020-01-17 01:38] VITALS: BMI 36.6
[2020-01-17 02:33] LABS: Troponin I Less than 0.010 ng/mL (< 0.028)
[2020-01-17 06:06] LABS: Troponin I Less than 0.010 ng/mL (< 0.028)
[2020-01-17] MEDS ORDERED: Loratadine 10 MG TAB PO PRN (08:31)
[2020-01-17] MEDS ORDERED: Nitroglycerin 0.4 MG TAB (25 Tab Bottle) SL PRN (08:32)
[2020-01-17] MEDS ORDERED: ALPRAZolam 0.5 MG TAB PO PRN ×2 (08:44→10:15)
[2020-01-17] MEDS ORDERED: Ibuprofen 200 MG TAB PO PRN (08:56)
[2020-01-17] MEDS ORDERED: Oxybutynin 5 MG TAB PO SCH (09:00)
[2020-01-17] MEDS ORDERED: Levothyroxine 150 MCG TAB PO SCH (09:00)
[2020-01-17] MEDS ORDERED: Iopamidol 370 76% 100 ML VIAL ONE (09:07)
[2020-01-17] MEDS ORDERED: Iopamidol 370 76% 50 ML VIAL FS ONE (09:07)
[2020-01-17 09:20] LABS: #Eosinphils 0.2 thou/uL (0.0-0.7); #Lymphocytes 1.9 thou/uL (1.20-3.40); #Monocytes 0.4 thou/uL (0.11-0.59); #Neutrophils 3.7 thou/uL (1.40-6.50); %Basophils 0.8 % (0.0-1.0); %Eosinophils 3.9 % (0.0-10.0); %Lymphocytes 30.8 % (21.0-51.0); %Monocytes 5.6 % (0.0-10.0); %Neutrophils 58.9 % (42.0-75.0); Hemoglobin 13.3 g/dL (12.0-16.0); Mean Corpuscular HGB CONC 32.5 g/dL (32.0-36.0); Mean Corpuscular Hemoglobin 29.7 pg (27.0-31.0); Mean Corpuscular Volume 91.4 fL (78.0-98.0); Mean Platelet Volume 7.1 fL (7.4-10.4); Platelet Count 190 thou/uL (130-400); RBC Distribution Width 13.2 % (11.5-14.5); Red Blood Cell (RBC) Count 4.49 mill/uL (4.20-5.40); White Blood Cell (WBC) Count 6.2 thou/uL (4.8-10.8)
[2020-01-17 09:42] LABS: Anion Gap 13 mmol/L (10-20); BUN (Urea Nitrogen) 17 mg/dL (9.8-20.1); Calc. Creatinine Clearance 110 mL/min (70-130); Calcium 9.3 mg/dL (7.8-10.44); Carbon Dioxide 24 mmol/L (23-31); Chloride 106 mmol/L (98-107); Estimated GFR-MDRD 78; Glucose 143 mg/dL (80-115); Potassium 4.3 mmol/L (3.5-5.1); Sodium 139 mmol/L (136-145); Uric Acid 3.3 mg/dL (2.6-6.0)
--- NOTE | 2020-01-17 10:01 | HP ---
CHIEF COMPLAINT: Chest pain. HISTORY OF PRESENT ILLNESS: The patient had seen Dr. Burns on Wednesday telling him about her substernal chest pain, that would radiate, making her slightly short of breath, mildly diaphoretic, not nauseated. With her past history, he then planned to get her set up for a stress test with her stitchdown toe former. This was actually planned to be occurring on 01/17/2020; however, on the evening prior to admission, the patient reported severe substernal chest pain going up into her jaw, down her left arm, made her diaphoretic, nauseated, short winded, at which time she took an aspirin and some nitroglycerin at home, felt a little bit better, but came into the emergency room anyway because of the dyspnea was ongoing. She has had no recent exposures to anyone with fever, chills, cough, or known COVID. In the ER, the patient's initial cardiac enzymes are negative, EKG is negative, but due to her history of 4-vessel coronary artery disease with stents in the past, she is placed in for further workup. She has not been seen by her stitchdown toe former in quite some time. This pain felt very similar to her prior heart attack. PAST MEDICAL HISTORY: Significant for the aforementioned coronary artery disease. She has had a CVA in the past with right-sided weakness, kidney stones, previous history of [place]. She has had 4 stents placed. She has diabetes type 2, hypothyroidism, hyperlipidemia, hypertension, COPD, asthma. PAST SURGICAL HISTORY: Her prior surgeries include hernia repair, coronary stents x4, appendectomy, cholecystectomy, hysterectomy, right tibial surgery. PAST PSYCHIATRIC HISTORY: Includes anxiety and depression. SOCIAL HISTORY: She denies alcohol use or drug use. She currently smokes 1/2 pack per day. FAMILY HISTORY: Noncontributory. ALLERGIES: NO KNOWN DRUG ALLERGIES. CURRENT MEDICATIONS: On admission include; 1. Aspirin 325 p.o. daily. 2. BuSpar 15 mg b.i.d. 3. Calcium supplements. 4. Fenofibrate 160 mg daily. 5. . 6. Levothyroxine 175 mcg a day. 7. Lovastatin 20 mg daily. 8. Meloxicam 15 mg daily. 9. Quinapril 20 mg daily. 10. Sertraline 100 mg daily. 11. Trazodone 100 mg at bedtime. 12. Allopurinol 300 mg daily. 13. Metformin 1000 mg b.i.d. 14. Oxybutynin 5 mg p.o. daily. 15. Advair HFA inhaler 2 puffs b.i.d. REVIEW OF SYSTEMS: CONSTITUTIONAL: The patient denies fever or chills, but admits to general weakness. HEENT: Denies drainage, pain, or sores. CHEST: Admits to shortness of breath, but denies cough. CARDIOVASCULAR: Denies palpitations, but has had substernal chest pain as reason for admission. ABDOMEN: She has had some mild nausea associated with the chest pain. : Denies blood in urine or stool or dysuria. MUSCULOSKELETAL: Denies any new muscle aches or pains or swelling of the joints. NEUROLOGY: Denies headaches, blurred vision, or trouble with mentation. PSYCHIATRIC: Consistent with anxiety and depression right now. PHYSICAL EXAMINATION: VITAL SIGNS: At the time of admission, blood pressure 135/60, pulse 69, respirations 23, temperature 98.2 with a pain scale of 0/10 at the time of admission, O2 saturation 98% on room air. GENERAL: This is a well-developed, well-nourished female, alert, oriented, and cooperative. HEENT: Normocephalic, atraumatic. The left pupil is obscured with scarring. Right pupil is round, reactive to light. Extraocular muscles are intact. TMs, nares, and pharynx are clear. NECK: Supple. Trachea midline. No bruits. CHEST: Slightly diminished breath sounds throughout. HEART: Regular rate and rhythm with no murmur. BREASTS: Deferred. ABDOMEN: Soft, nontender without hepatosplenomegaly. : Deferred. EXTREMITIES: Without clubbing, cyanosis, or edema. Normal range of motion present. SKIN: No new rashes or lesions noted. NEUROLOGIC: Cranial nerves are intact. Gait and cerebral function are normal. Sensory exam is intact. Mental status is baseline and nonfocal. LABORATORY AND DIAGNOSTIC DATA: The lab work on admission shows WBC 7, hemoglobin 13, hematocrit 40, platelets at 205. Sodium 138, potassium 4.0, chloride 104, BUN 18, creatinine 0.86 with a GFR 67, glucose 198 at the time of admission. Liver functions normal. Troponin is negative x3. The chest x-ray shows no acute cardiopulmonary process. Mild chronic changes are noted and arthritis in the spine. ASSESSMENT: 1. Chest pain with known history of coronary artery disease, suspicious for unstable angina. 2. History of coronary artery disease. 3. History of dyslipidemia. 4. Xkk-ldfpbia-krlfdnfqv diabetes. 5. Hypertension. 6. Anxiety disorder. PLAN: Plan will be stress test with a cardiology consultation. We will continue her daily aspirin and continue the nitroglycerin paste at this time since there was relief with p.o. nitroglycerin at her home. The patient is currently chest pain free and stable. Job ID: [id number]
[2020-01-17] MEDS: Icosapent Ethyl 1 GM CAPSULE PO SCH ×2 (11:01→16:44)
[2020-01-17] MEDS: Allopurinol 300 MG TAB PO SCH (11:01)
[2020-01-17] MEDS: Aspirin 325 MG TAB PO SCH (11:01)
[2020-01-17] MEDS: busPIRone HCl 10 MG TAB PO SCH ×2 (11:01→21:09)
[2020-01-17] MEDS: FLUoxetine HCl 20 MG CAP PO SCH (11:02)
[2020-01-17] MEDS: Calcium Carbonate 600 MG + Vit D TAB PO SCH (11:02)
[2020-01-17] MEDS: cloNIDine 0.1 MG TAB PO SCH ×2 (11:02→21:09)
[2020-01-17] MEDS: Multivit, Therapeutic 1 TAB PO SCH (11:03)
[2020-01-17] MEDS: Potassium Chloride 8 MEQ TAB PO SCH ×2 (11:03→21:08)
[2020-01-17] MEDS: Lisinopril 20 MG TAB PO SCH (11:03)
[2020-01-17] MEDS: Empagliflozin 25 MG TAB PO SCH (12:06)
[2020-01-17] MEDS: Nitroglycerin 2% Ointment 1 INCH/1 GM Packet TOP SCH ×3 (12:06→23:27)
[2020-01-17] MEDS: Alogliptin 25 MG TAB PO SCH (12:06)
[2020-01-17 12:30] LABS: Hemoglobin A1c 6.9 % (4.0-6.0)
[2020-01-17] MEDS ORDERED: Nitroglycerin 100MG/250ML BOT 250 ML ONE (13:29)
[2020-01-17] MEDS ORDERED: Heparin 10,000 UNITS/1 ML VIAL ONE (13:39)
--- NOTE | 2020-01-17 13:45 | CON ---
DATE OF CONSULTATION: REASON FOR CONSULTATION: Recurrent chest pain. HISTORY OF PRESENT ILLNESS: Ms. Gallardo is a very pleasant 64-year-old woman with past history of CAD, status post stent placement to the circumflex artery and diagonal branch. She has not been seen or evaluated by myself since 2010. She recently presented with chest pain. The episode began on Wednesday. She had a recurrent episode yesterday evening. The pain lasted for several minutes. The pain was [id number]-vi-[id number]. . PAST MEDICAL HISTORY: As described above. CVA, previous [place], diabetes mellitus, hypothyroidism, hyperlipidemia, COPD, asthma. SURGICAL HISTORY: Appendectomy, cholecystectomy, hysterectomy, anxiety, depression. SOCIAL HISTORY: No current tobacco or alcohol use. She continues to smoke. ALLERGIES: NONE. REVIEW OF SYSTEMS: A 10-point review of systems is reviewed as above, otherwise negative. PHYSICAL EXAMINATION: Vital Signs: Blood pressure 144/65, pulse 62, temperature afebrile. General: The patient is a pleasant woman, in no acute distress, appears stated age. Head, Eyes, Ears, Nose and Throat: Sclerae without icterus. Mouth: Moist mucous membranes, normal palate. Cataract to left eye. Neck: No jugular venous distention. Carotid upstroke is brisk. No bruits bilaterally. Lungs: Clear to auscultation. Heart: Regular rate and rhythm, normal S1 and S2. Abdomen: Soft, nontender, nondistended. Extremities: No edema. PERTINENT LABORATORY DATA: Hemoglobin 13.2, hematocrit 41.0, platelet count . CK troponin negative. DIAGNOSTIC STUDIES: EKG, normal sinus rhythm, nonspecific ST-T wave changes. IMPRESSION: 1. Unstable angina. 2. Coronary artery disease. 3. Status post stent placement. RECOMMENDATIONS: Ms. Gallardo has had 2 recurrent episodes over the last 72 hours. They are both described as [id number]-[id number]. Despite her negative troponin, I am concerned about unstable angina. We therefore recommend coronary angiography plus PCI. I discussed the procedure in full detail with Ms. Gallardo. Risks included, but not limited to the following: I discussed the procedure in full detail with the patient. The risks of the procedure were also discussed. The risks of the procedure include but are not limited to the following: , stroke, [place], need for emergency surgery, loss of limb, bleeding, and infection, as well as a reaction to the dye causing kidney failure and needing long-term dialysis. I also discussed the risks of PCI to include all of the above including coronary dissection and perforation in addition to acute stent thrombosis and restenosis. All questions about the procedure were answered. Given the above, the patient agreed to proceed with coronary angiography and possible PCI. All questions were answered. Given the above, the patient agreed to proceed with above procedure. Also discussed drug coated versus nondrug coated stent placement. There were no contraindications and we will proceed if needed. Job ID: [id number]
[2020-01-17] MEDS ORDERED: Clopidogrel Bisulfate 300 MG TAB ONE (14:03)
[2020-01-17] MEDS ORDERED: hydrALAZINE 20 MG/ML VIAL ONE (14:03)
[2020-01-17] MEDS ORDERED: Fentanyl 100 MCG/2 ML VIAL ONE (14:26)
[2020-01-17] MEDS ORDERED: Midazolam HCl 2 mg/2 ml Vial ONE (14:26)
[2020-01-18] MEDS ORDERED: Levothyroxine Sodium 75 MCG TAB PO SCH (06:00)
[2020-01-18] MEDS: Nitroglycerin 2% Ointment 1 INCH/1 GM Packet TOP SCH ×2 (06:40→11:50)
[2020-01-18] MEDS ORDERED: metFORMIN 500 MG TAB PO SCH (08:00)
[2020-01-18] MEDS: Alogliptin 25 MG TAB PO SCH (08:32)
[2020-01-18] MEDS: cloNIDine 0.1 MG TAB PO SCH (08:32)
[2020-01-18] MEDS: Allopurinol 300 MG TAB PO SCH (08:32)
[2020-01-18] MEDS: Aspirin 325 MG TAB PO SCH (08:32)
[2020-01-18] MEDS: Calcium Carbonate 600 MG + Vit D TAB PO SCH (08:32)
[2020-01-18] MEDS: Icosapent Ethyl 1 GM CAPSULE PO SCH (08:32)
[2020-01-18] MEDS: busPIRone HCl 10 MG TAB PO SCH (08:32)
[2020-01-18] MEDS: Empagliflozin 25 MG TAB PO SCH (08:33)
[2020-01-18] MEDS: Lisinopril 20 MG TAB PO SCH (08:33)
[2020-01-18] MEDS: FLUoxetine HCl 20 MG CAP PO SCH (08:33)
[2020-01-18] MEDS: Multivit, Therapeutic 1 TAB PO SCH (08:34)
[2020-01-18] MEDS: Potassium Chloride 8 MEQ TAB PO SCH (08:34)
[2020-01-18] MEDS ORDERED: Simvastatin 5 MG TAB PO SCH (09:00)
[2020-01-18] MEDS ORDERED: Aspirin 325 MG TAB PO SCH (09:15)
[2020-01-18] MEDS ORDERED: Clopidogrel Bisulfate 75 MG TAB PO SCH (12:00)
[2020-01-18 12:09] VITALS: BP 133/60; TEMP 97.1
--- NOTE | 2020-01-18 13:58 | EKG ---
Test Reason : Blood Pressure : / mmHG Vent. Rate : 065 BPM Atrial Rate : 065 BPM P-R Int : 140 ms QRS Dur : 100 ms QT Int : 458 ms P-R-T Axes : 014 -06 042 degrees QTc Int : 476 ms Sinus rhythm with occasional Premature ventricular complexes Non-specific intra-ventricular conduction delay Abnormal ECG When compared with ECG of 16-JAN-2020 22:11, (Unconfirmed) Premature ventricular complexes are now Present Confirmed by COLLIN JAMES ([id number]) on 01/18/2020 1:58:02 PM Referred By: TERESA SESAY M.D. Confirmed By:COLLIN JAMES
[2020-01-18] MEDS ORDERED: Atorvastatin Calcium 40 MG TAB PO SCH (21:00)
[2020-01-19] MEDS ORDERED: Aspirin 325 MG TAB PO SCH (09:00)
--- NOTE | 2020-01-27 14:50 | EKG ---
Test Reason : EMERGENCY EXAM Blood Pressure : / mmHG Vent. Rate : 069 BPM Atrial Rate : 069 BPM P-R Int : 154 ms QRS Dur : 094 ms QT Int : 444 ms P-R-T Axes : 033 -14 037 degrees QTc Int : 475 ms Normal sinus rhythm Minimal voltage criteria for LVH, may be normal variant Borderline ECG Confirmed by BISI GONSALES, FRANCISCO ([id number]), science editor SHIRLEY VALENCIA ([id number]) on 01/27/2020 2:50:12 PM Referred By: Confirmed By:FRANCISCO MATHEWS MD
== END 2020-01-18 12:50 | disposition home or self-care (01) ==
LOC: ERS 22:02 → 2NO 23:51
PROVIDERS: ADMIT Specialist; ATTEND Specialist
PROC: 4A023N7 Measurement of Cardiac Sampling and Pressure, Left Heart, Percutaneous Approach (ICD-10-PCS; principal; 2020-01-16)
PROC: B2111ZZ Fluoroscopy of Multiple Coronary Arteries using Low Osmolar Contrast (ICD-10-PCS; 2020-01-16)
DX: I25.110 Atherosclerotic heart disease of native coronary artery with unstable angina pectoris (principal); I10 Essential (primary) hypertension; E11.9 Type 2 diabetes mellitus without complications; E03.9 Hypothyroidism, unspecified; E78.5 Hyperlipidemia, unspecified; J44.9 Chronic obstructive pulmonary disease, unspecified; F41.9 Anxiety disorder, unspecified; F32.9 Major depressive disorder, single episode, unspecified; Z79.82 Long term (current) use of aspirin; Z79.899 Other long term (current) drug therapy; Z79.84 Long term (current) use of oral hypoglycemic drugs; Z86.73 Personal history of transient ischemic attack (TIA), and cerebral infarction without residual deficits; Z91.018 Allergy to other foods
CPT/HCPCS: 71045; 76942; 80048; 80053; 82550; 83036; 84484 ×3; 84550; 85025 ×2; 85347 ×2; 93005 ×2; 93454; 99285; C1760; C1874; C9600; G0378 ×3; 36415; 92928; 93010; J0360; J1644; J2250; J3010; Q9967

== ENCOUNTER 2020-01-31 20:19 | Observation (INO) | payer MEDICARE ==
[2020-01-31 20:59] LABS: #Basophils 0.1 thou/uL (0.0-0.2); #Eosinphils 0.4 thou/uL (0.0-0.7); #Lymphocytes 2.2 thou/uL (1.20-3.40); #Monocytes 0.5 thou/uL (0.11-0.59); #Neutrophils 5.3 thou/uL (1.40-6.50); %Basophils 0.9 % (0.0-1.0); %Eosinophils 4.6 % (0.0-10.0); %Lymphocytes 25.8 % (21.0-51.0); %Monocytes 5.6 % (0.0-10.0); %Neutrophils 63.1 % (42.0-75.0); Hemoglobin 13.2 g/dL (12.0-16.0); Mean Corpuscular HGB CONC 33.9 g/dL (32.0-36.0); Mean Corpuscular Volume 91.4 fL (78.0-98.0); Mean Platelet Volume 7.1 fL (7.4-10.4); Platelet Count 259 thou/uL (130-400); RBC Distribution Width 13.1 % (11.5-14.5); Red Blood Cell (RBC) Count 4.26 mill/uL (4.20-5.40); White Blood Cell (WBC) Count 8.4 thou/uL (4.8-10.8)
[2020-01-31 21:23] LABS: ALT (SGPT) 24 U/L (8-55); AST (SGOT) 22 U/L (5-34); Alkaline Phosphatase 92 U/L (40-110); Anion Gap 15 mmol/L (10-20); BUN (Urea Nitrogen) 17 mg/dL (9.8-20.1); Bilirubin, Total 0.2 mg/dL (0.2-1.2); CK (CPK) 41 U/L (29-168); Calc. Creatinine Clearance 0 mL/min (70-130); Calcium 9.5 mg/dL (7.8-10.44); Carbon Dioxide 20 mmol/L (23-31); Chloride 104 mmol/L (98-107); Estimated GFR-MDRD 68; Globulin 3.3 g/dL (2.4-3.5); Glucose 306 mg/dL (80-115); Lipase 15 U/L (8-78); Protein, Total 7.3 g/dL (6.0-8.3); Sodium 135 mmol/L (136-145)
[2020-01-31 21:33] LABS: Bilirubin Negative (Negative); Blood, Urine Negative (Negative); Clarity Clear (Clear); Glucose, Urine (Dipstick) Greater than 1000 mg/dL (Negative); Leukocyte Negative Leu/uL (Negative); Nitrite Negative (Negative); Protein, Urine (Dipstick) Negative (Neg-Trace); Urobilinogen Normal mg/dL (Less than 2)
[2020-02-01 01:55] VITALS: BMI 39.6
[2020-02-01] MEDS ORDERED: Ondansetron ODT 4 MG TAB SL PRN (02:21)
[2020-02-01] MEDS ORDERED: Sodium Chloride 0.9% 1,000 ML IV SCH (02:21)
[2020-02-01] MEDS ORDERED: Ondansetron PF 4 MG/2 ML Vial IVP PRN ×2 (02:21→08:22)
[2020-02-01] MEDS ORDERED: cloNIDine 0.1 MG TAB PO PRN ×2 (03:11→08:21)
[2020-02-01 03:14] LABS: Troponin I 0.025 ng/mL (< 0.028)
[2020-02-01] MEDS ORDERED: Nitroglycerin 0.4 MG TAB (25 Tab Bottle) SL PRN (08:20)
[2020-02-01] MEDS ORDERED: Dextrose 50% Abboject 50 ML SYRINGE IVP PRN (08:21)
[2020-02-01] MEDS ORDERED: Dextrose 5% in Water 1,000 ML IV PRN (08:21)
--- NOTE | 2020-02-01 08:43 | RAD ---
PORTABLE CHEST 1 VIEW: DATE: 01/31/2020. TIME: 9:07 PM. History Chest pain. COMPARISON: 01/16/2020. FINDINGS: The heart size remains at upper limits of normal. The lungs are expanded without lobar consolidation , pneumothoraces, harris pulmonary edema, or pleural effusions. Mild chronic changes are again seen. There are degenerative changes in the spine. IMPRESSION: No radiographic evidence of acute cardiopulmonary process. POS: CHIQUITAA
[2020-02-01] MEDS ORDERED: Aspirin 325 MG TAB PO SCH (09:00)
[2020-02-01] MEDS: Alogliptin 25 MG TAB PO SCH (09:50)
[2020-02-01] MEDS: Empagliflozin 25 MG TAB PO SCH (09:50)
[2020-02-01] MEDS: Lisinopril 20 MG TAB PO SCH ×2 (09:51→21:13)
[2020-02-01] MEDS: Allopurinol 300 MG TAB PO SCH (09:51)
[2020-02-01] MEDS: busPIRone HCl 10 MG TAB PO SCH ×2 (09:51→21:12)
[2020-02-01] MEDS: Clopidogrel Bisulfate 75 MG TAB PO SCH (09:51)
[2020-02-01] MEDS: Aspirin 325 MG TAB PO SCH (09:52)
[2020-02-01] MEDS: Insulin Regular 300 UNITS/3 ML VIAL SC PRN (09:59)
[2020-02-01] MEDS ORDERED: Acetaminophen 325 MG TAB PO PRN (13:53)
--- NOTE | 2020-02-01 14:57 | HP ---
CHIEF COMPLAINT: Chest pain. HISTORY OF PRESENT ILLNESS: The patient is a 64-year-old female, who was sitting on her couch when suddenly she had left-sided chest pain that radiated up into her neck, making it tight going down her left arm. She became nauseated, but did not throw up. She broke out into a sweat and had some difficulty breathing. With these combination of symptoms, she came to the emergency room for further evaluation. She had recently been hospitalized in January 16 for similar condition. She was evaluated by Dr. Pimentel who took her to the fuel system maintenance supervisor and ended up placing a stent. The patient tolerated the hospitalization well. Her chest pain had resolved. She was discharged from the hospital shortly thereafter. She followed up as an outpatient with Dr. Burns in his clinic again, was chest pain-free, and doing well. However, she was warned should the chest pain recur, to notify Dr. Burns. PAST MEDICAL HISTORY: Significant for aforementioned hospitalization several weeks ago for angina treated by stent placement. She also has rba-[id number]-tnawfjdjo diabetes, history of CVA with right-sided weakness, kidney stones, previous history of [place] and she has had 4 stents placed prior to her last hospitalization, hypothyroidism, hyperlipidemia, hypertension, COPD, asthma, generalized anxiety disorder, hyperuricemia as well as polyuria. PAST SURGICAL HISTORY: Includes most recently stent placement 2 to 3 weeks ago and prior to that 4 other previous stents, appendectomy, cholecystectomy, hysterectomy, and right tibial surgery. She has also had hernia repair. PAST PSYCHIATRIC HISTORY: Includes anxiety and depression. SOCIAL HISTORY: Denies alcohol or drug use. She currently still smokes 1/2 pack per day. FAMILY HISTORY: Noncontributory. ALLERGIES: NO KNOWN DRUG ALLERGIES. MEDICATIONS ON ADMISSION: Include: 1. Aspirin 325 mg daily. 2. BuSpar 15 mg twice a day. 3. Calcium supplements. 4. Fenofibrate 160 mg daily. 5. Levothyroxine recently reduced from 175 to 150 daily. 6. Lovastatin 20 mg daily. 7. Meloxicam 15 mg daily. 8. Quinapril 20 mg twice a day. 9. Sertraline recently increased to 150 mg daily. 10. Trazodone 100 mg at bedtime. 11. Allopurinol 300 mg at bedtime. Other medicines include: 1. Metformin 1000 mg twice a day. 2. Oxybutynin 5 mg daily. 3. Advair inhaler 2 puffs twice a day. REVIEW OF SYSTEMS: HEENT: Denies drainage or pain in head, ears, eyes, nose, or throat. CHEST: Denies coughing or shortness of breath at this time. CARDIOVASCULAR: Denies palpitations, but chest pain is her reason for admission. ABDOMEN: Has had some nausea, but it has gone at this time. No vomiting or diarrhea. : Denies blood in urine or stool or dysuria. MUSCULOSKELETAL: Denies any new muscle aches or pain. She has chronic swelling in her joints. NEUROLOGIC: Denies any headaches, blurred vision, or trouble with mentation. PSYCHIATRIC: Consist of persistent anxiety and depression. PHYSICAL EXAMINATION: VITAL SIGNS: Temperature 98.5, pulse 63, blood pressure 177/75, respirations 16, O2 saturation 97%. She weighs 216 pounds 11 ounces. GENERAL: This is an obese, middle-aged female, alert, oriented, cooperative. HEENT: Normocephalic, atraumatic. She has a cataract in left eye. In the right eye, pupils round, reactive to light. Extraocular muscles are intact. TMs, nares, and pharynx are clear. NECK: Supple. Trachea midline. No bruits. No mass. CHEST: With generally diminished breath sounds. HEART: Regular rate and rhythm. No murmur. ABDOMEN: Soft, nontender without organomegaly. : Deferred. BREASTS: Deferred. EXTREMITIES: Without clubbing or cyanosis. There is mild edema bilaterally in the lower extremities. SKIN: Without acute rashes or lesions. NEUROLOGIC: Cranial nerves are intact. Gait and cerebellar function, normal. Sensory exam is intact. Mental status is at baseline. LABORATORY DATA: Lab work thus far shows WBCs 8.4, hemoglobin 13.2, hematocrit 39.0 with platelets of 259. Her sodium 135, potassium 4.0, chloride 104, CO2 of 20, BUN 17, creatinine 0.84 with a GFR of 68, glucose on admission 306, calcium 9.5. Liver functions unremarkable. Troponin I negative x3. Urinalysis shows glucosuria, but otherwise negative. The chest x-ray shows no acute intrathoracic process. Borderline heart size. Pulmonary shows signs of early emphysema. ASSESSMENT: 1. Unstable angina. 2. History of coronary artery disease with multiple risk factors including previous stent placement x5. 3. Non-insulin dependent diabetes, poor control. 4. Hypertension, inadequately controlled. 5. Dyslipidemia. PLAN: Plan will be further cardiac evaluation. She may need to go to the cath lab radiology technician. Again, her stent has possibly closed off. We will leave that up to Cardiology to decide. In the meantime, she will be provided nitroglycerin and oxygen p.r.n. chest pain and maintain her usual medications including sliding scale for better control of her blood glucose. We will also increase her antihypertensives to get better control over blood pressure. We will serially re-evaluate her, recheck her thyroid level. She had been overmedicated in the past and this could be contributing to her hypertension, so that has recently been reduced and we will reassess that. Job ID: [id number]
[2020-02-01] MEDS: Sodium Chloride 0.9% 1,000 ML IV SCH (15:38)
[2020-02-01] MEDS: metFORMIN 500 MG TAB PO SCH (17:29)
--- NOTE | 2020-02-01 17:54 | CON ---
DATE OF CONSULTATION: 02/01/2020 INDICATION FOR CONSULTATION: A 64-year-old female with chest pain and history of coronary artery disease, who recently underwent angioplasty stent placed in the left circumflex. HISTORY OF PRESENT ILLNESS: This very pleasant 64-year-old female, who resides in assisted living facility, was seen recently in the hospital, where she underwent a cardiac catheterization by Dr. Pimentel and was found to have a stenosis in the left circumflex and an area, which had previously I believe the same vessel had been stented. She underwent a repeat angioplasty and stent placement to the left circumflex. She did quite well after that. She was actually at home for the last couple weeks, did not have any problems and then yesterday evening about 7 o'clock, she developed some chest discomfort what she originally described as being a stabbing pain, which went to her neck and she has some pain in her arms. Later on when I suggested that sharp stabbing pains were not necessarily coming from her heart will be more like a pressure or heaviness and then she said that she did have some pressure in her chest, but she did not admit to that previously earlier in the conversation. She has had no EKG changes to indicate ischemia. The cardiac enzymes are negative. She did take some nitroglycerin as she had the pain. She said the pain only lasted for few minutes and she again described as a sharp pain, but then later said there was some pressure associated with it and she has some shortness of breath after the event. She presented to the emergency room, where workup thus far has been unremarkable. She does not seem to have some degree of depression and also she has diabetes and her blood sugar was significantly elevated. She also has hypercholesterolemia. At this time, she has been pain free since being in the hospital. PAST MEDICAL HISTORY: Significant for the coronary artery disease, history of diabetes. She also has history of the angioplasty and stent placements. She has had a cholecystectomy and appendectomy. She has anxiety. She had a hysterectomy. She has history of depression. She has a history of diabetes. She is not on insulin. She has had a CVA in the past. She has had a myocardial infarction in the past. She has hyperlipidemia as well as COPD. She has asthma. She has hypothyroidism. SOCIAL HISTORY: There is no history of significant alcohol or tobacco abuse. ALLERGIES: NONE. REVIEW OF SYSTEMS: Unremarkable. She denies any HEENT complaints, she did say yesterday. She did have some diarrhea several times yesterday prior to having the chest discomfort. Otherwise, she denied any urological problems. No neurological problems. No musculoskeletal problems. She said that she has gained some weight, but does not see any significant edema. MEDICATIONS: Her medications, which she says she is still taking included; 1. Aspirin 325 mg a day. 2. Buspirone 15 mg once a day. 3. Calcium 600 plus vitamin D. 4. Fenofibrate 160 mg once a day. 5. Fish oil 1000 mg once a day. 6. Isosorbide mononitrate 60 mg once a day. 7. Levothyroxine 175 mcg daily. 8. Lovastatin 20 mg daily. 9. Meloxicam 15 mg once a day. 10. Lisinopril 40 mg once a day. 11. Sertraline 100 mg once a day. 12. Trazodone 100 mg daily. 13. Allopurinol 300 mg a day. 14. Metformin 1000 mg. She believes she takes once or twice a day uncertain, I will need to reconfirm that. 15. Oxybutynin chloride 5 mg. 16. Advair. 17. Bentyl. 18. Also please note on the medication list, I do not see that she was taking Plavix. However, the patient says she was taking Plavix, we will need to also revisit that to ensure that she was taking the Plavix. If not, she may be having some problems with the stent if she has not been placed on Plavix. This was a drug-eluting stent that was placed into the left circumflex. 19. Jardiance 25 mg q.a.m. 20. Metformin is 250 mg b.i.d. while being in the hospital. FAMILY HISTORY: Unremarkable. PHYSICAL EXAMINATION: GENERAL: Reveals a middle-aged female, who is in no acute distress at this time. She does appear to be somewhat fatigued and somewhat has a decreased affect, appears to be somewhat depressed. HEENT: Shows the head to be normocephalic and atraumatic. Carotid pulses are present. She has a very soft right carotid bruit noted. CHEST: Her chest was clear to auscultation without rales, rhonchi, or wheezing. CARDIOVASCULAR: Reveals a regular rate and rhythm. Normal S1 and S2. There is no S3 or S4. There were no significant murmurs, heaves, thrills, bruits, or rubs noted. GI: Abdominal exam shows obesity with positive bowel sounds. No organomegaly or masses were noted. Femoral pulses are present. EXTREMITIES: Showed no clubbing, cyanosis, or edema. Pedal pulses were decreased difficult to palpate, but appeared to be present. NEUROLOGIC: The patient appears to be fully intact. SKIN: Warm and dry. LABORATORY DATA: Cardiac enzymes are negative x3. No indication of myocardial infarction. Her blood sugar was 306, sodium was 135, potassium 4.0, BUN was 17, and creatinine 0.84. WBC of 8.4, hemoglobin 13.2, and platelet count 259,000. EKG shows a normal sinus rhythm, no acute changes were noted. IMPRESSION AND PLAN: 1. Elderly female with a history of coronary artery disease, who recently underwent angioplasty and stent placement to the left circumflex. The date of the procedure was January 17, 2020. At this time, I do not see indication that she has had any problems with the stent. Does not appear that there has been any occlusion. Her enzymes are negative. EKG is unremarkable and the pain when I spoke to her, did not appear to be typical cardiac pain, but then she said she has the pain was somewhat similar to what she had previously making this certainly difficult to determine whether the patient really has indeed any events going on. We will continue to monitor her overnight. If there are no changes and she remains stable, she could be discharged tomorrow morning. 2. History of diabetes, blood sugar certainly not under very well controlled. She may need further evaluation and treatment by the primary care service. 3. History of hypercholesterolemia. She will continue on her statin medications. She was taken lovastatin, we will continue this medicine. At this time, it appears on her hospital medications, she is on clopidogrel at this time and this may have inadvertently been left off the list of her medication earlier. 4. History of depression. She may have had some degree of anxiety since she lives alone and recently had stent placement. At this time, as noted we will continue to monitor the patient as far as her other medical problems or concerned, these will be dealt with by the primary care service. Job ID: [id number]
[2020-02-01] MEDS: Mometasone 200 MCG/Formoterol 5 MCG 120 PUFF INHALER INH SCH (18:42)
[2020-02-01] MEDS ORDERED: Simvastatin 5 MG TAB PO SCH (21:00)
[2020-02-02] MEDS ORDERED: Melatonin 3 MG TAB PO SCH ×2 (00:30→21:00)
[2020-02-02 05:12] LABS: Anion Gap 13 mmol/L (10-20); BUN (Urea Nitrogen) 16 mg/dL (9.8-20.1); Calc. Creatinine Clearance 108 mL/min (70-130); Calcium 8.8 mg/dL (7.8-10.44); Carbon Dioxide 24 mmol/L (23-31); Chloride 103 mmol/L (98-107); Estimated GFR-MDRD 69; Glucose 152 mg/dL (80-115); Sodium 136 mmol/L (136-145)
[2020-02-02] MEDS ORDERED: Levothyroxine 150 MCG TAB PO SCH (06:00)
[2020-02-02] MEDS: Insulin Regular 300 UNITS/3 ML VIAL SC PRN (06:36)
[2020-02-02] MEDS: Mometasone 200 MCG/Formoterol 5 MCG 120 PUFF INHALER INH SCH (07:20)
[2020-02-02 07:28] VITALS: BP 137/61; TEMP 97.9
[2020-02-02] MEDS: Sodium Chloride 0.9% 1,000 ML IV SCH ×2 (07:32)
[2020-02-02] MEDS: Allopurinol 300 MG TAB PO SCH (08:42)
[2020-02-02] MEDS: Alogliptin 25 MG TAB PO SCH (08:42)
[2020-02-02] MEDS: busPIRone HCl 10 MG TAB PO SCH (08:42)
[2020-02-02] MEDS: metFORMIN 500 MG TAB PO SCH (08:42)
[2020-02-02] MEDS: Aspirin 325 MG TAB PO SCH (08:42)
[2020-02-02] MEDS: Clopidogrel Bisulfate 75 MG TAB PO SCH (08:43)
[2020-02-02] MEDS: Lisinopril 20 MG TAB PO SCH (08:43)
[2020-02-02] MEDS: Empagliflozin 25 MG TAB PO SCH (08:43)
--- NOTE | 2020-02-02 10:29 | PDOC.CPN ---
- Subjective Date: 02/02/20 Time: 09:00 Interval history: The pt seen and examined. No overnight events. No cardiac complaints - Objective Allergies/Adverse Reactions: Allergies Allergy/AdvReac Type Severity Reaction Status Date / Time mike langeuce Allergy Short of Uncoded 11/10/19 13:44 Breath Visit Medications: Current Medications Acetaminophen (Tylenol) 650 mg PO Q6H PRN PRN Reason: Pain Last Admin: 02/01/20 14:07 Dose: 650 mg Allopurinol (Zyloprim) 300 mg PO DAILY [facility] Last Admin: 02/02/20 08:42 Dose: 300 mg Alogliptin Benzoate (Alogliptin) 25 mg PO QAM [facility] Last Admin: 02/02/20 08:42 Dose: 25 mg Aspirin (Aspirin) 325 mg PO DAILY [facility] Last Admin: 02/02/20 08:42 Dose: 325 mg Buspirone HCl (Buspar) 15 mg PO BID [facility] Last Admin: 02/02/20 08:42 Dose: 15 mg Clonidine (Catapres) 0.1 mg PO Q2H PRN PRN Reason: SBP >160 Clopidogrel Bisulfate (Plavix) 75 mg PO DAILY [facility] Last Admin: 02/02/20 08:43 Dose: 75 mg Dextrose/Water (Dextrose 50%) 25 gm IVP PRN PRN PRN Reason: HYPOGLYCEMIA PROTOCOL Glucagon (Glucagon) 1 mg IM PRN PRN PRN Reason: HYPOGLYCEMIA PROTOCOL Sodium Chloride (Normal Saline 0.9%) 1,000 mls @ 75 mls/hr IV .[id number] [facility] Last Admin: 02/02/20 07:32 Dose: 1,000 mls Dextrose/Water (D5w) 1,000 mls @ 0 mls/hr IV INF PRN PRN Reason: HYPOGLYCEMIA PROTOCOL Insulin Human Regular (Humulin R) 0 units SC .MILD SLIDING PRN; Protocol PRN Reason: MILD SLIDING SCALE Last Admin: 02/02/20 06:36 Dose: 2 unit Levothyroxine Sodium (Synthroid) 150 mcg PO 0600 [facility] Last Admin: 02/02/20 06:36 Dose: 150 mcg Lisinopril (Zestril) 40 mg PO BID [facility] Last Admin: 02/02/20 08:43 Dose: 40 mg Melatonin (Melatonin) 3 mg PO HS [facility] Metformin HCl (Glucophage) 1,000 mg PO BID-[facility] Last Admin: 02/02/20 08:42 Dose: 1,000 mg Metoprolol Succinate (Toprol Xl) 25 mg PO BID [facility] Last Admin: 02/02/20 08:43 Dose: 25 mg Miscellaneous Medication (Jardiance) 25 mg PO QAM [facility] Last Admin: 02/02/20 08:43 Dose: 25 mg Mometasone Furoate/Formoterol Fumar (Dulera 200 Mcg/5 Mcg Inhaler) 2 puff INH BID-RT [facility] Last Admin: 02/02/20 07:20 Dose: 2 puff Nitroglycerin (Nitrostat) 0.4 mg SL Q5MIN PRN PRN Reason: Chest Pain Ondansetron HCl (Zofran) 4 mg IVP Q6H PRN PRN Reason: Nausea Pantoprazole Sodium (Protonix) 40 mg PO DAILY [facility] Last Admin: 02/02/20 08:43 Dose: 40 mg Quetiapine Fumarate (Seroquel) 50 mg PO HS [facility] Last Admin: 02/01/20 21:14 Dose: 50 mg Sertraline HCl (Zoloft) 150 mg PO DAILY [facility] Last Admin: 02/02/20 08:43 Dose: 150 mg Simvastatin (Zocor) 10 mg PO HS [facility] Last Admin: 02/01/20 21:12 Dose: 10 mg Vital Signs & Weight: Vital Signs Temp Pulse Resp BP Pulse Ox 02/02/20 07:27 97.9 F 59 L 20 137/61 94 L 02/02/20 03:59 97.7 F 75 20 136/65 95 Weight 216 lb 11.2 oz - Physical Exam General: alert & oriented x3 HEENT: mucus membranes moist Neck: supple neck Cardiac: regular rate and rhythm, S1/S2 Lungs: clear to auscultation Extremities: no edema - Labs Result Diagrams: 01/31/20 20:49 02/02/20 04:14 Troponin/CKMB Troponin I 0.025 ng/mL (< 0.028) 02/01/20 02:42 - Telemetry Sinus rhythms and dysrhythmias: sinus rhythm - Assessment/Plan Assessment/Plan: 1. CAD with hx of multiple stents in past and s/p MAX in Lt Cx on 01/17/2020 - Asymptomatic since yesterday; stable VS; On ASA, Plavix, Metoprolol, zocor and Lisinopril. 2. HTN - stable 3. DM type 2 4. Hx of CVA 5. HLD 6. COPD/asthma 7. Hypothyroidism MAR reviewed * From Cardiac standpoint, the pt is stable to d/c home * Instructed to f/u with Dr Pimentel' office in 2 wks.
--- NOTE | 2020-02-04 12:14 | EKG ---
Test Reason : ER Blood Pressure : / mmHG Vent. Rate : 074 BPM Atrial Rate : 074 BPM P-R Int : 140 ms QRS Dur : 096 ms QT Int : 426 ms P-R-T Axes : 031 -09 056 degrees QTc Int : 472 ms Poor data quality, interpretation may be adversely affected Normal sinus rhythm Minimal voltage criteria for LVH, may be normal variant Borderline ECG Confirmed by SHERRELL GONSALES, TODD ([id number]), proposal editor SHIRLEY VALENCIA ([id number]) on 02/04/2020 12:13:36 PM Referred By: Confirmed By:TODD WYNNE MD
== END 2020-02-02 10:32 | disposition home or self-care (01) ==
LOC: ERS 20:19 → 2NO 23:27
PROVIDERS: ADMIT Specialist; ATTEND Specialist
DX: I25.110 Atherosclerotic heart disease of native coronary artery with unstable angina pectoris (principal); I10 Essential (primary) hypertension; E11.9 Type 2 diabetes mellitus without complications; E78.5 Hyperlipidemia, unspecified; E03.9 Hypothyroidism, unspecified; E78.00 Pure hypercholesterolemia, unspecified; F41.1 Generalized anxiety disorder; F32.9 Major depressive disorder, single episode, unspecified; F17.210 Nicotine dependence, cigarettes, uncomplicated; J44.9 Chronic obstructive pulmonary disease, unspecified; Z79.82 Long term (current) use of aspirin; Z79.84 Long term (current) use of oral hypoglycemic drugs; Z79.899 Other long term (current) drug therapy; Z86.73 Personal history of transient ischemic attack (TIA), and cerebral infarction without residual deficits; Z95.5 Presence of coronary angioplasty implant and graft
CPT/HCPCS: 71045; 80048; 80053; 80061; 81003; 82550; 82962 ×2; 83690; 84443; 84484 ×3; 85025; 90732; 93005; 94640 ×2; 94664; 97139; 99285; G0009; 36415; 36416; 90471; 96360; 96361; G0378; J1815

== ENCOUNTER 2020-02-14 12:32 | Emergency (ER) | payer MEDICARE ==
--- NOTE | 2020-02-14 13:07 | CT ---
CT HEAD WITHOUT CONTRAST: Date: 02/14/2020 INDICATION: Fall with injury to head. Comparison made to recent head CT of 11/09/2019. FINDINGS: Ventricles have normal size and position. There is no evidence of intracranial mass or hemorrhage. No edema. No evidence of infarct. The sinuses and mastoids are clear. IMPRESSION: No acute process identified. POS: AH
--- NOTE | 2020-02-14 13:14 | RAD ---
2 VIEW CHEST: Date: 02/14/2020 HISTORY: Dizziness. COMPARISON: Portable film of 01/31/2020. FINDINGS: The lungs appear clear. Heart size upper normal and stable. Vascular markings within normal range and stable. No interval change. The osseous structures are unremarkable with degenerative changes in the thoracic spine noted. IMPRESSION: No acute process or interval change. POS: AH
[2020-02-14 13:43] LABS: #Basophils 0.1 thou/uL (0.0-0.2); #Eosinphils 0.3 thou/uL (0.0-0.7); #Monocytes 0.5 thou/uL (0.11-0.59); #Neutrophils 5.6 thou/uL (1.40-6.50); %Basophils 0.7 % (0.0-1.0); %Eosinophils 3.4 % (0.0-10.0); %Lymphocytes 23.9 % (21.0-51.0); Hemoglobin 14.4 g/dL (12.0-16.0); Mean Corpuscular HGB CONC 33.1 g/dL (32.0-36.0); Mean Corpuscular Hemoglobin 30.6 pg (27.0-31.0); Mean Corpuscular Volume 92.3 fL (78.0-98.0); Mean Platelet Volume 7.3 fL (7.4-10.4); Platelet Count 245 thou/uL (130-400); RBC Distribution Width 13.2 % (11.5-14.5); Red Blood Cell (RBC) Count 4.72 mill/uL (4.20-5.40); White Blood Cell (WBC) Count 8.5 thou/uL (4.8-10.8)
[2020-02-14 14:12] LABS: ALT (SGPT) 23 U/L (8-55); AST (SGOT) 24 U/L (5-34); Albumin 4.6 g/dL (3.4-4.8); Alkaline Phosphatase 104 U/L (40-110); Anion Gap 17 mmol/L (10-20); BUN (Urea Nitrogen) 22 mg/dL (9.8-20.1); Bilirubin, Total 0.4 mg/dL (0.2-1.2); Calc. Creatinine Clearance 0 mL/min (70-130); Calcium 10.2 mg/dL (7.8-10.44); Carbon Dioxide 24 mmol/L (23-31); Chloride 101 mmol/L (98-107); Estimated GFR-MDRD 49; Globulin 3.7 g/dL (2.4-3.5); Glucose 204 mg/dL (80-115); Potassium 4.5 mmol/L (3.5-5.1); Protein, Total 8.3 g/dL (6.0-8.3); Sodium 137 mmol/L (136-145)
--- NOTE | 2020-02-14 15:02 | ULT ---
ULTRASOUND RIGHT GROIN FOR PSEUDOANEURYSM 02/14/20 HISTORY: Prior heart catheterization with developing palpable finding in the right groin. There is a poorly circumscribed mixed echogenic, mostly hypoechoic focus in the right groin accountin g for the palpable finding measuring 1.2 x 1.7 x 1.3 cm in size evidence for hematoma. No evidence fo r blood flow within this abnormal echogenic focus that would suggest a pseudoaneurysm. Unremarkable a ppearing right femoral artery and vein. No evidence for fistula. IMPRESSION: Evidence for right groin hematoma. No evidence for pseudoaneurysm. POS: RRE
== END 2020-02-14 15:55 | disposition home or self-care (01) ==
LOC: ERS 12:32
DX: R53.1 Weakness (principal); F32.9 Major depressive disorder, single episode, unspecified; Z86.73 Personal history of transient ischemic attack (TIA), and cerebral infarction without residual deficits; I25.2 Old myocardial infarction; E03.9 Hypothyroidism, unspecified; E78.00 Pure hypercholesterolemia, unspecified; E78.5 Hyperlipidemia, unspecified; I10 Essential (primary) hypertension; J44.9 Chronic obstructive pulmonary disease, unspecified; F41.9 Anxiety disorder, unspecified; F17.210 Nicotine dependence, cigarettes, uncomplicated; Z79.82 Long term (current) use of aspirin; Z79.84 Long term (current) use of oral hypoglycemic drugs; Z79.51 Long term (current) use of inhaled steroids; Z79.899 Other long term (current) drug therapy
CPT/HCPCS: 70450; 71046; 80053; 83880; 84484; 85025; 93005; 93926

== ENCOUNTER 2020-02-20 16:14 | Emergency (ER) | payer MEDICARE ==
[2020-02-20 19:17] LABS: #Basophils 0.1 thou/uL (0.0-0.2); #Eosinphils 0.4 thou/uL (0.0-0.7); #Lymphocytes 2.3 thou/uL (1.20-3.40); #Monocytes 0.5 thou/uL (0.11-0.59); #Neutrophils 5.1 thou/uL (1.40-6.50); %Basophils 0.9 % (0.0-1.0); %Eosinophils 4.3 % (0.0-10.0); %Lymphocytes 27.6 % (21.0-51.0); %Neutrophils 61.2 % (42.0-75.0); Hemoglobin 14.5 g/dL (12.0-16.0); Mean Corpuscular HGB CONC 32.1 g/dL (32.0-36.0); Mean Corpuscular Hemoglobin 29.7 pg (27.0-31.0); Mean Corpuscular Volume 92.5 fL (78.0-98.0); Mean Platelet Volume 7.3 fL (7.4-10.4); Platelet Count 275 thou/uL (130-400); RBC Distribution Width 13.3 % (11.5-14.5); Red Blood Cell (RBC) Count 4.87 mill/uL (4.20-5.40); White Blood Cell (WBC) Count 8.4 thou/uL (4.8-10.8)
[2020-02-20 19:39] LABS: ALT (SGPT) 31 U/L (8-55); AST (SGOT) 31 U/L (5-34); Albumin 4.6 g/dL (3.4-4.8); Alkaline Phosphatase 102 U/L (40-110); Anion Gap 16 mmol/L (10-20); BUN (Urea Nitrogen) 24 mg/dL (9.8-20.1); Bilirubin, Total 0.3 mg/dL (0.2-1.2); Calc. Creatinine Clearance 0 mL/min (70-130); Calcium 10.1 mg/dL (7.8-10.44); Carbon Dioxide 25 mmol/L (23-31); Chloride 100 mmol/L (98-107); Estimated GFR-MDRD 53; Globulin 3.7 g/dL (2.4-3.5); Glucose 143 mg/dL (80-115); Potassium 4.8 mmol/L (3.5-5.1); Protein, Total 8.3 g/dL (6.0-8.3); Sodium 136 mmol/L (136-145)
--- NOTE | 2020-02-20 20:46 | ULT ---
DOPPLER EXAM RIGHT GROIN: 02/20/20 Ultrasound and Doppler study is performed of the right groin. Right femoral artery, femoral vein, are imaged with ultrasound and Doppler. Normal blood flow is identified. There is no evidence of hematom a. There is no evidence of pseudoaneurysm. Normal flow is seen in the common femoral artery and commo n femoral vein with spectral analysis. IMPRESSION: Unremarkable vascular Doppler exam right groin. POS: AGW
== END 2020-02-20 21:48 | disposition home or self-care (01) ==
LOC: ERS 16:14
DX: R19.7 Diarrhea, unspecified (principal); R10.30 Lower abdominal pain, unspecified; R10.814 Left lower quadrant abdominal tenderness; R10.813 Right lower quadrant abdominal tenderness; E03.9 Hypothyroidism, unspecified; E11.9 Type 2 diabetes mellitus without complications; E78.5 Hyperlipidemia, unspecified; E78.00 Pure hypercholesterolemia, unspecified; I10 Essential (primary) hypertension; J44.9 Chronic obstructive pulmonary disease, unspecified; F41.9 Anxiety disorder, unspecified; F32.9 Major depressive disorder, single episode, unspecified; F17.210 Nicotine dependence, cigarettes, uncomplicated; I25.2 Old myocardial infarction; Z79.84 Long term (current) use of oral hypoglycemic drugs; Z79.82 Long term (current) use of aspirin; Z79.899 Other long term (current) drug therapy; Z86.73 Personal history of transient ischemic attack (TIA), and cerebral infarction without residual deficits
CPT/HCPCS: 80053; 83605; 85025; 87040; 87070; 87077; 87149; 87186; 87205; 93926; 96360

== ENCOUNTER 2020-02-23 12:28 | Observation (INO) | payer MEDICARE ==
[2020-02-23 13:15] LABS: #Eosinphils 0.4 thou/uL (0.0-0.7); #Lymphocytes 1.6 thou/uL (1.20-3.40); #Monocytes 0.4 thou/uL (0.11-0.59); #Neutrophils 4.9 thou/uL (1.40-6.50); %Basophils 0.7 % (0.0-1.0); %Eosinophils 5.6 % (0.0-10.0); %Lymphocytes 21.4 % (21.0-51.0); %Monocytes 5.7 % (0.0-10.0); %Neutrophils 66.6 % (42.0-75.0); Hemoglobin 13.7 g/dL (12.0-16.0); Mean Corpuscular HGB CONC 32.6 g/dL (32.0-36.0); Mean Corpuscular Hemoglobin 30.7 pg (27.0-31.0); Mean Corpuscular Volume 94.2 fL (78.0-98.0); Mean Platelet Volume 7.3 fL (7.4-10.4); Platelet Count 223 thou/uL (130-400); RBC Distribution Width 13.3 % (11.5-14.5); Red Blood Cell (RBC) Count 4.46 mill/uL (4.20-5.40); White Blood Cell (WBC) Count 7.4 thou/uL (4.8-10.8)
[2020-02-23 13:45] LABS: ALT (SGPT) 29 U/L (8-55); AST (SGOT) 31 U/L (5-34); Albumin 4.3 g/dL (3.4-4.8); Alkaline Phosphatase 98 U/L (40-110); Anion Gap 17 mmol/L (10-20); BUN (Urea Nitrogen) 22 mg/dL (9.8-20.1); Bilirubin, Total 0.3 mg/dL (0.2-1.2); Calc. Creatinine Clearance 0 mL/min (70-130); Calcium 9.3 mg/dL (7.8-10.44); Carbon Dioxide 21 mmol/L (23-31); Chloride 104 mmol/L (98-107); Estimated GFR-MDRD 56; Globulin 3.2 g/dL (2.4-3.5); Glucose 245 mg/dL (80-115); Protein, Total 7.5 g/dL (6.0-8.3); Sodium 137 mmol/L (136-145)
[2020-02-23 16:35] LABS: Lactic Acid 1.3 mmol/L (0.5-2.2)
[2020-02-23] MEDS ORDERED: Acetaminophen 325 MG TAB PO PRN ×2 (17:27→22:52)
[2020-02-23 17:56] VITALS: BMI 39.4
[2020-02-23] MEDS: Sodium Chloride 0.9% 1,000 ML IV SCH (18:19)
[2020-02-23] MEDS ORDERED: Lisinopril 20 MG TAB PO SCH (22:45)
[2020-02-23] MEDS ORDERED: Melatonin 3 MG TAB PO SCH (22:45)
[2020-02-23] MEDS ORDERED: Ondansetron PF 4 MG/2 ML Vial IVP PRN (22:52)
[2020-02-23] MEDS ORDERED: ALPRAZolam 0.5 MG TAB PO PRN (23:10)
[2020-02-23] MEDS ORDERED: cloNIDine 0.1 MG TAB PO PRN (23:12)
[2020-02-23] MEDS ORDERED: Loratadine 10 MG TAB PO PRN (23:20)
[2020-02-23] MEDS ORDERED: Nitroglycerin 0.4 MG TAB (25 Tab Bottle) SL PRN (23:23)
[2020-02-24 05:46] LABS: #Eosinphils 0.3 thou/uL (0.0-0.7); #Lymphocytes 2.1 thou/uL (1.20-3.40); #Monocytes 0.3 thou/uL (0.11-0.59); #Neutrophils 2.7 thou/uL (1.40-6.50); %Basophils 0.8 % (0.0-1.0); %Eosinophils 5.4 % (0.0-10.0); %Lymphocytes 37.7 % (21.0-51.0); %Monocytes 6.3 % (0.0-10.0); %Neutrophils 49.9 % (42.0-75.0); Hemoglobin 11.8 g/dL (12.0-16.0); Mean Corpuscular HGB CONC 31.5 g/dL (32.0-36.0); Mean Corpuscular Hemoglobin 29.5 pg (27.0-31.0); Mean Corpuscular Volume 93.6 fL (78.0-98.0); Mean Platelet Volume 7.3 fL (7.4-10.4); Platelet Count 203 thou/uL (130-400); RBC Distribution Width 13.3 % (11.5-14.5); Red Blood Cell (RBC) Count 4.01 mill/uL (4.20-5.40); White Blood Cell (WBC) Count 5.5 thou/uL (4.8-10.8)
[2020-02-24 06:06] LABS: Anion Gap 10 mmol/L (10-20); BUN (Urea Nitrogen) 15 mg/dL (9.8-20.1); Calc. Creatinine Clearance 111 mL/min (70-130); Calcium 8.5 mg/dL (7.8-10.44); Carbon Dioxide 23 mmol/L (23-31); Chloride 106 mmol/L (98-107); Estimated GFR-MDRD 78; Glucose 139 mg/dL (80-115); Potassium 4.1 mmol/L (3.5-5.1); Sodium 135 mmol/L (136-145)
[2020-02-24] MEDS: Sodium Chloride 0.9% 1,000 ML IV SCH (06:27)
[2020-02-24] MEDS: Levothyroxine 150 MCG TAB PO SCH (06:30)
[2020-02-24] MEDS: Mometasone 200 MCG/Formoterol 5 MCG 120 PUFF INHALER INH SCH ×2 (07:04→19:36)
[2020-02-24] MEDS: Aspirin 325 mg Enteric Coated Tablet PO SCH (09:51)
[2020-02-24] MEDS: Clopidogrel Bisulfate 75 MG TAB PO SCH (09:52)
[2020-02-24] MEDS: FLUoxetine HCl 20 MG CAP PO SCH (09:52)
[2020-02-24] MEDS: metFORMIN 500 MG TAB PO SCH (09:52)
[2020-02-24] MEDS: Calcium Carbonate 600 MG + Vit D TAB PO SCH (09:53)
[2020-02-24] MEDS: Multivit, Therapeutic 1 TAB PO SCH (09:53)
[2020-02-24] MEDS: Oxybutynin 5 MG TAB PO SCH (09:53)
[2020-02-24] MEDS: Empagliflozin 25 MG TAB PO SCH (09:53)
[2020-02-24] MEDS: busPIRone HCl 10 MG TAB PO SCH ×2 (09:53→20:54)
[2020-02-24] MEDS: Icosapent Ethyl 1 GM CAPSULE PO SCH ×2 (09:54→17:46)
[2020-02-24] MEDS: Alogliptin 6.25 MG TAB PO SCH (09:54)
[2020-02-24] MEDS: Allopurinol 300 MG TAB PO SCH (09:54)
[2020-02-24] MEDS: Lisinopril 20 MG TAB PO SCH ×2 (09:55→20:53)
--- NOTE | 2020-02-24 10:32 | HP ---
CHIEF COMPLAINT: Possible MRSA infection of the right groin. HISTORY OF PRESENT ILLNESS: The patient is a 64-year-old female, who had recently undergone catheterization in the hospital and admitted under chest pain. The catheterization returned unremarkable, but at the cath site, she developed a hematoma and possibly a pseudoaneurysm. The patient has also had postprocedural diarrhea. The patient came to the ER for workup of her diarrhea. Cultures were taken and she grew out MRSA in one of her blood cultures. The patient was called when that resulted to come back for possible re-evaluation, observation, and antibiotics, that is why she has been admitted at this time. In the ER, her wound appears healthy. Blood cultures were repeated. Vancomycin begun and Dr. Burns contacted for observation. PAST MEDICAL HISTORY: Significant for the recently hospitalized for chest pain evaluation, this return negative for acute disease. She has non-insulin dependent type 2 diabetes, hypothyroidism, and history of myocardial infarction. She has had 5 stents placed previously for coronary artery disease. She has had history of kidney stones, hyperlipidemia, hypertension, COPD, asthma, cataract in the left eye, vertigo, insomnia, GERD, and overactive bladder. PAST SURGICAL HISTORY: Includes; 1. Aforementioned 5 stent placements during cardiac cath. 2. Hernia repair. 3. Appendectomy. 4. Cholecystectomy. 5. Hysterectomy. 6. Oophorectomy. 7. Right tibial surgery. PSYCHIATRIC HISTORY: Significant for anxiety and depression. SOCIAL HISTORY: She denies alcohol use. The patient currently still smokes 1/2 pack per day. FAMILY HISTORY: Noncontributory. ALLERGIES: NO KNOWN DRUG ALLERGIES. MEDICATIONS: On admission include; 1. Aspirin 325 mg daily. 2. Plavix 75 mg daily. 3. BuSpar 15 mg b.i.d. 4. Vascepa 2 g b.i.d. 5. Levothyroxine 150 mcg daily. 6. Lovastatin 20 mg daily. 7. Quinapril 20 mg b.i.d. 8. Prozac 60 mg daily. 9. Metformin 1000 mg daily. 10. Metoprolol succinate 25 mg b.i.d. 11. Melatonin 3 mg at bedtime. 12. Loratadine 10 mg daily p.r.n. allergies. 13. Protonix 40 mg daily. 14. Oxybutynin 5 mg daily. 15. The patient also takes Symbicort 160/4.5 two puffs b.i.d. REVIEW OF SYSTEMS: CONSTITUTION: The patient denies fever and chills. She has had protracted diarrhea that is recently abated. HEENT: Denies drainage from eyes, ears, nose, or throat. She has a chronic cataract in the left eye. CHEST: Denies shortness of breath or coughing. CARDIOVASCULAR: Currently denies chest pain or palpitations. GI: She has had significant diarrhea, but denies nausea or vomiting. : Denies blood in urine or stool. She has chronic polyuria. SKIN: No new rashes or lesions. ENDOCRINE: Denies hot flashes, edema, or polydipsia (chronically has polyuria). EXTREMITIES: Denies any new aches or pains in major muscles or joint. SKIN: No new rashes or lesions. NEUROLOGIC: No trouble with headaches or mentation at this time. PSYCHIATRIC: She has chronic anxiety and depression. PHYSICAL EXAMINATION: At the time of admission; VITAL SIGNS: Blood pressure 132/52, pulse 60, respirations 18, and temperature 98.7 with O2 saturation of 98% on room air. GENERAL: This is a mildly obese elderly female, alert, oriented, and cooperative. HEENT: Normocephalic and atraumatic. Right pupil is round and reactive to light. Left pupil is occluded with cataract. TMs, nares, and pharynx are clear. NECK: Supple. Trachea midline. No bruit. Nontender. No masses. CHEST: Clear to auscultation. BREASTS: Deferred. HEART: Regular rate and rhythm without murmur. ABDOMEN: Soft and nontender. No organomegaly. : Deferred. Right groin shows well-healing cath site with palpable area of induration, but no erythema or heat. EXTREMITIES: Without clubbing, cyanosis, or edema. There is 1+ trace at edema lower extremities. SKIN: No new rashes or lesions aside from well-healing right groin catheterization site. NEUROLOGIC: Cranial nerves are intact. Unable to test gait or cerebellar function at this time. Sensory exam is grossly intact. Mental status is at baseline. LABORATORY DATA: Lab work thus far shows WBCs on admission 7.4, which diminished to 5.5 after two doses of vancomycin. Hemoglobin 13.7, hematocrit 42, and platelets at 223. Sodium 137, potassium 5.0, chloride 104, CO2 of 21, BUN 22, creatinine 1 with GFR 56, which corrected to 78 after overnight hydration. Glucose initially 245 without her medications and 139 on the morning of the second morning of observation. Lactic acid on arrival 2.5, and within 5 hours went to 1.3. Liver functions unremarkable. Blood cultures pending. ASSESSMENT: 1. Possible methicillin-resistant Staphylococcus aureus. 2. Diarrhea recently in remission. 3. History of coronary artery disease status post stents x5. 4. Non-insulin dependent diabetic. 5. Generalized anxiety. PLAN: The patient will be continued under observation for additional doses of vancomycin. We will repeat her CBC in the morning. Continue to watch her blood cultures to turn positive. Should they not over the next 24 hours, she will be discharged home on oral antibiotics due to the improvement and lactic acid and CBC with administration of antibiotics indicating probably culture negative MRSA. Job ID: [id number]
[2020-02-24] MEDS ORDERED: Vancomycin HCl 1.25 GM in Sodium Chloride 0.9% 250 ML 250 ML IVPB SCH (14:00)
[2020-02-24] MEDS ORDERED: Simvastatin 10 MG TAB PO SCH (21:00)
[2020-02-24] MEDS ORDERED: Melatonin 3 MG TAB PO SCH (21:00)
[2020-02-25 05:37] LABS: #Eosinphils 0.3 thou/uL (0.0-0.7); #Lymphocytes 1.6 thou/uL (1.20-3.40); #Monocytes 0.3 thou/uL (0.11-0.59); #Neutrophils 3.2 thou/uL (1.40-6.50); %Basophils 0.4 % (0.0-1.0); %Eosinophils 5.5 % (0.0-10.0); %Lymphocytes 29.6 % (21.0-51.0); %Neutrophils 59.5 % (42.0-75.0); Hemoglobin 12.7 g/dL (12.0-16.0); Mean Corpuscular HGB CONC 32.8 g/dL (32.0-36.0); Mean Corpuscular Volume 94.6 fL (78.0-98.0); Platelet Count 197 thou/uL (130-400); RBC Distribution Width 13.2 % (11.5-14.5); Red Blood Cell (RBC) Count 4.11 mill/uL (4.20-5.40); White Blood Cell (WBC) Count 5.4 thou/uL (4.8-10.8)
[2020-02-25] MEDS: Levothyroxine 150 MCG TAB PO SCH (06:24)
[2020-02-25] MEDS: Mometasone 200 MCG/Formoterol 5 MCG 120 PUFF INHALER INH SCH (07:22)
[2020-02-25 07:52] VITALS: TEMP 98.2
[2020-02-25] MEDS: Icosapent Ethyl 1 GM CAPSULE PO SCH (08:21)
[2020-02-25] MEDS: Multivit, Therapeutic 1 TAB PO SCH (08:21)
[2020-02-25] MEDS: FLUoxetine HCl 20 MG CAP PO SCH (08:21)
[2020-02-25] MEDS: busPIRone HCl 10 MG TAB PO SCH (08:21)
[2020-02-25] MEDS: Aspirin 325 mg Enteric Coated Tablet PO SCH (08:22)
[2020-02-25] MEDS: Calcium Carbonate 600 MG + Vit D TAB PO SCH (08:22)
[2020-02-25] MEDS: metFORMIN 500 MG TAB PO SCH (08:22)
[2020-02-25] MEDS: Lisinopril 20 MG TAB PO SCH (08:22)
[2020-02-25] MEDS: Oxybutynin 5 MG TAB PO SCH (08:23)
[2020-02-25] MEDS: Clopidogrel Bisulfate 75 MG TAB PO SCH (08:23)
[2020-02-25] MEDS: Allopurinol 300 MG TAB PO SCH (08:23)
[2020-02-25 08:24] VITALS: BP 145/80
[2020-02-25] MEDS: Alogliptin 6.25 MG TAB PO SCH (11:57)
[2020-02-25] MEDS: Empagliflozin 25 MG TAB PO SCH (11:57)
[2020-02-25 13:30] LABS: Vancomycin, Trough 6.4 ug/mL
[2020-02-25] MEDS ORDERED: Vancomycin 1 GM in Premix Bag 1 BAG IVPB SCH (14:00)
== END 2020-02-25 13:45 | disposition home or self-care (01) ==
LOC: ERS 12:28 → SJJU 15:02
PROVIDERS: ADMIT Specialist; ATTEND Specialist
DX: R07.9 Chest pain, unspecified (principal); E11.9 Type 2 diabetes mellitus without complications; E03.9 Hypothyroidism, unspecified; I10 Essential (primary) hypertension; I25.10 Atherosclerotic heart disease of native coronary artery without angina pectoris; I25.2 Old myocardial infarction; J44.9 Chronic obstructive pulmonary disease, unspecified; E78.5 Hyperlipidemia, unspecified; F17.210 Nicotine dependence, cigarettes, uncomplicated; F41.9 Anxiety disorder, unspecified; F32.9 Major depressive disorder, single episode, unspecified; Z79.82 Long term (current) use of aspirin; Z79.84 Long term (current) use of oral hypoglycemic drugs; Z79.899 Other long term (current) drug therapy; Z95.5 Presence of coronary angioplasty implant and graft; Z91.018 Allergy to other foods
CPT/HCPCS: 36415; 36416; 80048; 80053; 80202; 83605; 85025; 87040; 96365; 96366; G0378; J3370; J7030; J7050

== ENCOUNTER 2020-05-05 19:26 | Emergency (ER) | payer MEDICARE ==
[2020-05-05] MEDS ORDERED: HYDROcodone/Acetaminophen 5/325 mg Tablet ONE (19:57)
--- NOTE | 2020-05-05 20:24 | RAD ---
Radiograph right ankle 3 views: HISTORY: 64-year-old female with traumatic right ankle pain due to fall FINDINGS: Well-corticated ossific fragment abuts a defect at the medial malleolus. Ankle mortise is congruent. Anterior and lateral soft tissue swelling. No acute fracture identified. IMPRESSION: 1.) No acute fracture. 2) evidence for old nonunited, nondisplaced fracture at medial malleolus.
--- NOTE | 2020-05-05 20:25 | RAD ---
Radiograph right knee 4 views: HISTORY: 64-year-old female with right knee pain after fall FINDINGS: No acute fracture identified. No dislocation. 3 completely threaded screws across the proximal tibial metaphysis. Moderate DJD at medial compartment. Chronic depression of medial tibial plateau. Small joint effusion. IMPRESSION: 1.) No acute fracture identified. 2.) 3 screws involved with old, healed medial tibial plateau fracture. 3.) Associated moderate osteoarthrosis of the medial compartment
== END 2020-05-05 20:37 | disposition home or self-care (01) ==
LOC: ERS 19:26
DX: M17.11 Unilateral primary osteoarthritis, right knee (principal); M19.071 Primary osteoarthritis, right ankle and foot; I25.10 Atherosclerotic heart disease of native coronary artery without angina pectoris; E03.9 Hypothyroidism, unspecified; E78.5 Hyperlipidemia, unspecified; J44.9 Chronic obstructive pulmonary disease, unspecified; J45.909 Unspecified asthma, uncomplicated; F41.9 Anxiety disorder, unspecified; F32.9 Major depressive disorder, single episode, unspecified; Z86.73 Personal history of transient ischemic attack (TIA), and cerebral infarction without residual deficits; Z79.899 Other long term (current) drug therapy; Z79.82 Long term (current) use of aspirin; I12.9 Hypertensive chronic kidney disease with stage 1 through stage 4 chronic kidney disease, or unspecified chronic kidney disease; N18.9 Chronic kidney disease, unspecified; E11.22 Type 2 diabetes mellitus with diabetic chronic kidney disease; W18.30XA Fall on same level, unspecified, initial encounter

== ENCOUNTER 2020-08-07 14:04 | Inpatient (IN) | payer MEDICARE ==
[2020-08-07] MEDS ORDERED: Nitroglycerin 2% Ointment 1 INCH/1 GM Packet ONE (14:24)
--- NOTE | 2020-08-07 14:40 | RAD ---
Chest one view HISTORY: Chest pain. COMPARISON: 02/14/2020. FINDINGS: Cardiac silhouette is magnified by projection. Pulmonary vasculature is unremarkable. Mediastinum is midline. No lobar consolidation or evidence of pneumothorax. Old right rib and right clavicular fractures. IMPRESSION : No acute abnormalities are demonstrated.
[2020-08-07 14:43] LABS: #Basophils 0.1 thou/uL (0.0-0.2); #Eosinphils 0.3 thou/uL (0.0-0.7); #Monocytes 0.4 thou/uL (0.11-0.59); %Basophils 1.1 % (0.0-1.0); %Eosinophils 3.5 % (0.0-10.0); %Lymphocytes 22.8 % (21.0-51.0); %Monocytes 4.2 % (0.0-10.0); %Neutrophils 68.4 % (42.0-75.0); Hemoglobin 13.8 g/dL (12.0-16.0); Mean Corpuscular HGB CONC 32.8 g/dL (32.0-36.0); Mean Corpuscular Hemoglobin 30.9 pg (27.0-31.0); Mean Corpuscular Volume 94.4 fL (78.0-98.0); Mean Platelet Volume 4.6 fL (7.4-10.4); Platelet Count 213 thou/uL (130-400); RBC Distribution Width 13.8 % (11.5-14.5); Red Blood Cell (RBC) Count 4.47 mill/uL (4.20-5.40); White Blood Cell (WBC) Count 8.8 thou/uL (4.8-10.8)
[2020-08-07 15:01] LABS: ALT (SGPT) 25 U/L (8-55); AST (SGOT) 31 U/L (5-34); Albumin 4.1 g/dL (3.4-4.8); Alkaline Phosphatase 76 U/L (40-110); Anion Gap 16 mmol/L (10-20); BUN (Urea Nitrogen) 16 mg/dL (9.8-20.1); Bilirubin, Total 0.2 mg/dL (0.2-1.2); CK (CPK) 41 U/L (29-168); Calc. Creatinine Clearance 0 mL/min (70-130); Calcium 9.2 mg/dL (7.8-10.44); Carbon Dioxide 21 mmol/L (23-31); Chloride 107 mmol/L (98-107); Globulin 3.2 g/dL (2.4-3.5); Glucose 230 mg/dL (80-115); Lipase 19 U/L (8-78); Potassium 4.7 mmol/L (3.5-5.1); Protein, Total 7.3 g/dL (6.0-8.3); Sodium 139 mmol/L (136-145)
[2020-08-07 17:32] VITALS: BMI 37.3
--- NOTE | 2020-08-07 18:30 | HP ---
CHIEF COMPLAINT: Chest pain. HISTORY OF PRESENT ILLNESS: The patient is a 64-year-old female who while walking her dog began to have left-sided chest pain. It radiated up into her neck. She became short-winded and nauseated. She did not vomit. She also began to sweat. She took a full-strength 325 aspirin and then a nitroglycerin prior to EMS arrival. When they arrived, they also gave her a spray of nitroglycerin orally. By the time she arrived in [facility], her pain scale was down to 1/10. She felt like she could not get a deep breath as well while this was occurring. She denies palpitations, fever, GI symptoms, or exposure to anyone with COVID. She had a catheterization with stent placement in January of this year, such that she has a total of 5 stents at present. Her most recent medication change was being placed on Plavix shortly after that procedure. PAST MEDICAL HISTORY: Includes type 2 diabetes, hypothyroidism, prior history of myocardial infarction, CVA, kidney stones, hyperlipidemia, hypertension, COPD, asthma, cataract in the left eye, vertigo, insomnia, GERD, and overactive bladder. PAST SURGICAL HISTORY: Includes aforementioned five stent placements, hernia repair, appendectomy, cholecystectomy, hysterectomy, oophorectomy, and right tibial/knee surgery. PSYCHIATRIC HISTORY: Significant for anxiety and depression. SOCIAL HISTORY: She denies alcohol use, but as of this summer was still smoking one half pack per day. FAMILY HISTORY: Noncontributory. ALLERGIES: NO KNOWN DRUG ALLERGIES. MEDICATIONS ON ADMISSION: Include: 1. Daily aspirin 81 mg. 2. Metformin 1000 mg daily. 3. BuSpar 15 mg b.i.d. 4. Vascepa two capsules b.i.d. 5. Levothyroxine 125 mcg daily. 6. Lovastatin 20 mg daily. 7. Quinapril 20 mg b.i.d. 8. Prozac 60 mg daily. 9. Metoprolol succinate 25 mg b.i.d. 10. Melatonin 3 mg at bedtime. 11. Plavix 75 mg daily. 12. Symbicort two puffs b.i.d. 13. Glyxambi 5/25 once a day. 14. Oxybutynin 5 mg daily. 15. Protonix 40 mg daily. REVIEW OF SYSTEMS: CONSTITUTIONAL: At the time of admission, she constitutionally feels lethargic and weak, but denies chills or fever. HEENT: Denies drainage from eyes, ears, nose, or throat. She is blind in the left eye. NECK: Without pain. CHEST: No coughing or shortness of breath at this time. She does have COPD. CARDIOVASCULAR: Positive for chest pain. No palpitations. GI: Positive for nausea. No vomiting or diarrhea. : No blood in urine or stool or painful urination. MUSCULOSKELETAL: Positive for general aches and pains, but no new findings. SKIN: No new rashes or lesions. NEUROLOGIC: Mentation is clear, but slow. Denies headaches. ENDOCRINE: Denies no new swelling, polydipsia, or polyuria. PHYSICAL EXAMINATION: At the time of admission, VITAL SIGNS: Blood pressure is 145/78, pulse 67, respirations 20, temperature 98.1. Pain scale at 0. O2 saturation 95% on room air. GENERAL: This is an obese elderly female, alert, oriented, and cooperative. HEENT: Normocephalic and atraumatic. Only one pupils reactive to light, the other is scarred by cataract. Extraocular muscles are intact. Sclera nonicteric. NECK: Supple. Trachea midline. No bruits. No adenopathy or mass. CHEST: Generally diminished breath sounds. HEART: Regular rate and rhythm. BREASTS: Deferred. ABDOMEN: Soft, nontender without hepatosplenomegaly. : Deferred. EXTREMITIES: Without clubbing, cyanosis, or edema. Normal range of motion present. Symmetrical muscular tone development noted. SKIN: Without acute rashes or lesions. NEUROLOGIC: Cranial nerves are intact except for vision from cranial nerve 2 on the left. Gait is untested. Cerebellar is untested. Sensory exam grossly intact. LAB WORK: Thus far shows WBCs 8.8, hemoglobin 13.8, hematocrit 42.2 with platelets at 213. Sodium 139, potassium 4.7, chloride 107, CO2 of 21, BUN 16, creatinine 0.2 with GFR of 62, glucose at 230, calcium 9.2. Liver functions unremarkable. Troponins negative thus far. Lipase 19. UA is pending. Chest x-ray shows old right rib and right clavicular fractures. No other findings of note. Pulmonary vasculature is unremarkable. ASSESSMENT: 1. Chest pain in an individual with coronary artery disease and recent stent placement within the last 6 months. 2. Hypertension. 3. Type 2 diabetes. 4. Tobacco abuse. PLAN: 1. Due to the patient's multiple risk factors, she is placed on telemetry for further trending of her troponins. 2. Cardiology consultation. 3. Serial re-evaluation. 4. Consideration for re-catheterization for possible stent closure. Job ID: [id number] MTDD
[2020-08-07 18:51] LABS: Troponin I Less than 0.010 ng/mL (< 0.028)
[2020-08-07 21:00] LABS: Troponin I Less than 0.010 ng/mL (< 0.028)
[2020-08-08 00:38] LABS: SARS-CoV-2 MS2 Positive; SARS-CoV-2 N Gene Negative; SARS-CoV-2 S Gene Negative; SARS-CoV-2 by NAA Not Detected (NotDetected); SARS-CoV-2 orf1ab Negative
[2020-08-08] MEDS ORDERED: Ondansetron PF 4 MG/2 ML Vial IVP PRN (07:37)
[2020-08-08] MEDS ORDERED: Acetaminophen 325 MG TAB PO PRN (07:37)
[2020-08-08] MEDS ORDERED: Nitroglycerin 0.4 MG TAB (25 Tab Bottle) SL PRN (07:52)
[2020-08-08] MEDS: Aspirin Chewable 81 MG TAB PO SCH (08:38)
[2020-08-08] MEDS: metFORMIN 500 MG TAB PO SCH (08:38)
[2020-08-08] MEDS: Alogliptin 25 MG TAB PO SCH (08:39)
[2020-08-08] MEDS: busPIRone HCl 5 MG TAB PO SCH ×2 (08:39→21:05)
[2020-08-08] MEDS: Clopidogrel Bisulfate 75 MG TAB PO SCH (08:40)
[2020-08-08] MEDS: FLUoxetine HCl 20 MG CAP PO SCH (08:41)
[2020-08-08] MEDS: Empagliflozin 25 MG TAB PO SCH (08:41)
[2020-08-08] MEDS: Enoxaparin Sodium 40 MG/0.4 ML SYRINGE SC SCH (08:41)
[2020-08-08] MEDS: Lisinopril 20 MG TAB PO SCH ×2 (08:41→21:05)
[2020-08-08] MEDS ORDERED: Levothyroxine Sodium 125 MCG TAB PO SCH (08:45)
[2020-08-08] MEDS ORDERED: FLU VACC QS2020-21(6MOS UP)/PF 60 MCG/0.5 ML SYRINGE IM ONE (09:00)
[2020-08-08 10:07] LABS: Hemoglobin A1c 7.3 % (4.0-6.0)
[2020-08-08 10:07] LABS: SARS-CoV-2 IgG Ab Non-Reactive (NonReactive); SARS-CoV-2 IgG Index 0.01 S/CO (< 1.40)
[2020-08-08] MEDS ORDERED: Regadenoson 0.4 MG/5 ML SYRINGE ONE (10:07)
[2020-08-08 10:29] LABS: ALT (SGPT) 27 U/L (8-55); AST (SGOT) 30 U/L (5-34); Albumin 4.1 g/dL (3.4-4.8); Alkaline Phosphatase 69 U/L (40-110); Anion Gap 15 mmol/L (10-20); BUN (Urea Nitrogen) 18 mg/dL (9.8-20.1); Bilirubin, Direct 0.1 mg/dL (0.1-0.3); Bilirubin, Total 0.4 mg/dL (0.2-1.2); Calc. Creatinine Clearance 103 mL/min (70-130); Calcium 9.1 mg/dL (7.8-10.44); Carbon Dioxide 23 mmol/L (23-31); Chloride 102 mmol/L (98-107); Glucose 143 mg/dL (80-115); Potassium 4.3 mmol/L (3.5-5.1); Protein, Total 7.3 g/dL (6.0-8.3); Sodium 136 mmol/L (136-145)
[2020-08-08] MEDS ORDERED: cloNIDine 0.1 MG TAB PO PRN (12:05)
--- NOTE | 2020-08-08 14:15 | NM ---
Radionucleotide stress only myocardial perfusion scan with CT attenuation correction and SPECT imagin g Left ventricular wall motion evaluation and ejection fraction HISTORY: Chest pain. COMPARISON: 12/24/2017. FINDINGS: Lexiscan protocol. Very heterogeneous uptake of radiotracer throughout the left ventricular myocardium. No focal perfusion defect. QGS analysis of gated SPECT images shows no focal wall motion abnormalities. Ejection fraction calcul ated at 54%. IMPRESSION : No evidence of ischemia. Normal LVEF.
[2020-08-08] MEDS ORDERED: Communication Order-Pharmacy FS SCH (19:45)
[2020-08-08] MEDS: Mometasone 200 MCG/Formoterol 5 MCG 120 PUFF INHALER INH SCH (19:58)
[2020-08-08] MEDS: Simvastatin 10 MG TAB PO SCH (21:06)
--- NOTE | 2020-08-08 23:25 | CON ---
DATE OF CONSULTATION: 08/08/2020 INDICATION FOR CONSULTATION: A 64-year-old female with history of known coronary artery disease, status post angioplasty and stent placement with multiple stents. She has had stent placement approximately six months ago by Dr. Pimentel. She had been doing very well since that stent placement, but then yesterday suddenly she had some chest discomfort. She took some nitroglycerin. The pain went away and she again had repeat episodes of chest pain and then she presented to the emergency room. Cardiac enzymes are negative. EKG is unremarkable. She had a stress test today, which showed no evidence of ischemia; however, she is still doing the stress test. She had significant chest discomfort with heavy pressure type sensation, which radiated to the left arm. Given her history and the recent stent placement despite having a negative stress test, it may be advisable for her to undergo repeat cardiac catheterization. She is very nervous about having progression of disease or stent occlusion. At this time, she remains stable. She has had no further chest pain since the stress test earlier today, at which time she did have some chest pain during the procedure. PAST MEDICAL HISTORY: Significant for coronary artery disease and diabetes. She has had angioplasty and stent placement. She has had a cholecystectomy and appendectomy. She has history of anxiety and depression. She has a hysterectomy. She has history of right knee surgery due to fractured knee. She had a CVA in the past. She also apparently has had a myocardial infarction. She has hyperlipidemia and COPD in the form of asthma. She has hypothyroidism. SOCIAL HISTORY: She lives over at independent living at [place]. She has no history of alcohol or tobacco abuse. ALLERGIES: NONE. MEDICATIONS: She takes, 1. Vascepa. 2. Allopurinol. 3. Oxybutynin. 4. Aspirin 81 mg a day. 5. Metoprolol 25 mg b.i.d. 6. Levothyroxine. 7. Potassium. 8. Glyxambi. 9. Buspirone. 10. Quetiapine. ALLERGIES: SHE SAYS SHE IS ALLERGIC TO PIZZA SAUCE BUT THERE ARE NO KNOWN DRUG ALLERGIES. FAMILY HISTORY: Noncontributory. REVIEW OF SYSTEMS: She has cataract and blindness in the left eye. She has had no other HEENT complaints. She had no pulmonary complaints. She had no GI or complaints. She mainly complains of chest discomfort, which is a recent starting since just yesterday and she had no significant complaints in the lower extremities. She does walk with a walker after having knee surgery on the right knee. Neurologically, there were no gross complaints of seizures or syncope. PHYSICAL EXAMINATION: GENERAL: Reveals an obese female, who is in no acute distress at this time. She is alert. She is oriented. She is very pleasant. VITAL SIGNS: Blood pressure is 144/71. She is afebrile. Heart rate is 69 and regular, respiratory rate 16, and O2 saturation is 97%. HEENT: Unremarkable. Carotid pulses are present without bruits. CHEST: Clear to auscultation without rales, rhonchi, or wheezing. CARDIOVASCULAR: At this time reveals a regular rate and rhythm. She has normal S1 and S2. I did not hear an S3 nor an S4. There were no significant murmurs, heaves, thrills, bruits, or rubs noted. ABDOMEN: Shows morbid obesity. There were no palpable masses. There is no tenderness. EXTREMITIES: Showed no significant clubbing or cyanosis. She did have minimal edema, mainly around the ankles. Pedal pulses are present. NEUROLOGICAL: She appears to be intact. She has a well-healed surgical incision over the right knee area. LABORATORY DATA: Her EKG shows a normal sinus rhythm with no acute changes. Cardiac enzymes are negative. Her other laboratory data shows sodium of 136, potassium 4.3, BUN was 18 with a creatinine of 0.82, blood sugar was 143. TSH was 0.2565. She is on medications for her thyroid. WBC was 8.8, hemoglobin 13.8, and a platelet count of 213,000. She was negative for COVID. IMAGING DATA: Chest x-ray; there were no acute changes noted. She does have evidence of an old right rib and right clavicular fractures. IMPRESSION: 1. A 64-year-old female with chest pain and history of known coronary artery disease. She describes her pain as being very similar to what she has had in the past prior to undergoing a recent stent placement back in January or February of this year. I believe it was in January of this year, she underwent angioplasty and stent placement again by Dr. Pimentel. She describes the pain as being worsened, but it was relieved by nitroglycerin. She had more pain during the stress test today. Despite having a negative stress test, her symptoms certainly sound very typical for angina and most likely, I would suggest she undergo a repeat cardiac catheterization to rule out evidence of in-stent restenosis. We will continue to watch her over the weekend. If she has any acute changes, she may need to have urgent cardiac catheterization. 2. History of hypertension. She will need to resume her medications. She did have some complaints today that she had not received her medications early last night. There was some problem apparently with the orders, but now she seems to have had better control of the blood pressure after being given the medications. 3. Morbid obesity. She needs to have diet control. 4. Diabetes. It also need to be controlled by the primary care service. 5. Hypercholesterolemia. We will continue her statin medications. We will be more than happy to follow the patient with you, but I will suggest that she undergo repeat cardiac catheterization on Wednesday. Job ID: [id number]
[2020-08-09 05:15] LABS: Anion Gap 17 mmol/L (10-20); BUN (Urea Nitrogen) 19 mg/dL (9.8-20.1); Calc. Creatinine Clearance 114 mL/min (70-130); Calcium 9.2 mg/dL (7.8-10.44); Carbon Dioxide 20 mmol/L (23-31); Chloride 104 mmol/L (98-107); Glucose 137 mg/dL (80-115); Potassium 4.1 mmol/L (3.5-5.1); Sodium 137 mmol/L (136-145)
[2020-08-09] MEDS: Levothyroxine Sodium 125 MCG TAB PO SCH (06:42)
[2020-08-09] MEDS: Aspirin Chewable 81 MG TAB PO SCH (08:00)
[2020-08-09] MEDS: busPIRone HCl 5 MG TAB PO SCH ×2 (08:00→21:46)
[2020-08-09] MEDS: Enoxaparin Sodium 40 MG/0.4 ML SYRINGE SC SCH (08:01)
[2020-08-09] MEDS: Lisinopril 20 MG TAB PO SCH ×2 (08:01→21:46)
[2020-08-09] MEDS: metFORMIN 500 MG TAB PO SCH (08:01)
[2020-08-09] MEDS: Clopidogrel Bisulfate 75 MG TAB PO SCH (08:01)
[2020-08-09] MEDS: Empagliflozin 25 MG TAB PO SCH (08:01)
[2020-08-09] MEDS: FLUoxetine HCl 20 MG CAP PO SCH (08:01)
[2020-08-09] MEDS: Alogliptin 25 MG TAB PO SCH (08:01)
[2020-08-09] MEDS: Mometasone 200 MCG/Formoterol 5 MCG 120 PUFF INHALER INH SCH ×2 (08:24→18:55)
[2020-08-09 11:08] LABS: Hemoglobin A1c 7.2 % (4.0-6.0)
[2020-08-09 11:22] LABS: ALT (SGPT) 29 U/L (8-55); AST (SGOT) 34 U/L (5-34); Albumin 4.3 g/dL (3.4-4.8); Alkaline Phosphatase 68 U/L (40-110); Anion Gap 16 mmol/L (10-20); BUN (Urea Nitrogen) 21 mg/dL (9.8-20.1); Bilirubin, Direct 0.2 mg/dL (0.1-0.3); Bilirubin, Total 0.4 mg/dL (0.2-1.2); Calc. Creatinine Clearance 108 mL/min (70-130); Calcium 9.3 mg/dL (7.8-10.44); Carbon Dioxide 22 mmol/L (23-31); Chloride 102 mmol/L (98-107); Glucose 150 mg/dL (80-115); Potassium 4.4 mmol/L (3.5-5.1); Protein, Total 7.6 g/dL (6.0-8.3); Sodium 136 mmol/L (136-145)
[2020-08-09] MEDS: Simvastatin 10 MG TAB PO SCH (21:46)
[2020-08-10] MEDS ORDERED: Diphenoxylate HCl/Atropine Tablet PO PRN (00:42)
[2020-08-10] MEDS: Levothyroxine Sodium 125 MCG TAB PO SCH (05:18)
[2020-08-10] MEDS: metFORMIN 500 MG TAB PO SCH (08:38)
[2020-08-10] MEDS: Aspirin Chewable 81 MG TAB PO SCH (09:02)
[2020-08-10] MEDS: Empagliflozin 25 MG TAB PO SCH (09:02)
[2020-08-10] MEDS: FLUoxetine HCl 20 MG CAP PO SCH (09:02)
[2020-08-10] MEDS: busPIRone HCl 5 MG TAB PO SCH ×2 (09:02→21:08)
[2020-08-10] MEDS: Lisinopril 20 MG TAB PO SCH ×2 (09:02→21:09)
[2020-08-10] MEDS: Clopidogrel Bisulfate 75 MG TAB PO SCH (09:02)
[2020-08-10] MEDS: Alogliptin 25 MG TAB PO SCH (09:03)
[2020-08-10] MEDS: Enoxaparin Sodium 40 MG/0.4 ML SYRINGE SC SCH (09:03)
[2020-08-10 09:17] LABS: Hemoglobin A1c 7.2 % (4.0-6.0)
[2020-08-10 09:30] LABS: ALT (SGPT) 30 U/L (8-55); AST (SGOT) 31 U/L (5-34); Albumin 4.2 g/dL (3.4-4.8); Alkaline Phosphatase 73 U/L (40-110); Anion Gap 17 mmol/L (10-20); BUN (Urea Nitrogen) 25 mg/dL (9.8-20.1); Bilirubin, Direct 0.2 mg/dL (0.1-0.3); Bilirubin, Total 0.4 mg/dL (0.2-1.2); Calc. Creatinine Clearance 98 mL/min (70-130); Calcium 9.4 mg/dL (7.8-10.44); Carbon Dioxide 21 mmol/L (23-31); Chloride 105 mmol/L (98-107); Glucose 137 mg/dL (80-115); Potassium 4.7 mmol/L (3.5-5.1); Protein, Total 7.6 g/dL (6.0-8.3); Sodium 138 mmol/L (136-145)
[2020-08-10] MEDS: Mometasone 200 MCG/Formoterol 5 MCG 120 PUFF INHALER INH SCH ×2 (11:04→19:30)
--- NOTE | 2020-08-10 11:13 | EKG ---
Test Reason : Blood Pressure : / mmHG Vent. Rate : 068 BPM Atrial Rate : 068 BPM P-R Int : 162 ms QRS Dur : 094 ms QT Int : 444 ms P-R-T Axes : 032 -16 041 degrees QTc Int : 472 ms Normal sinus rhythm Moderate voltage criteria for LVH, may be normal variant Borderline ECG Confirmed by JOSE DANIEL HERNÁNDEZ DO ([id number]), city editor SHIRLEY VALENCIA ([id number]) on 08/10/2020 11:12:55 AM Referred By: Confirmed By:JOSE DANIEL HERNÁNDEZ DO
[2020-08-10] MEDS: Nitroglycerin 2% Ointment 1 INCH/1 GM Packet TOP SCH ×2 (13:35→22:24)
[2020-08-10] MEDS: Simvastatin 10 MG TAB PO SCH (21:08)
[2020-08-11] MEDS: Nitroglycerin 2% Ointment 1 INCH/1 GM Packet TOP SCH ×4 (00:23→21:17)
[2020-08-11] MEDS: Levothyroxine Sodium 125 MCG TAB PO SCH (05:44)
[2020-08-11] MEDS: Lisinopril 20 MG TAB PO SCH ×2 (08:19→21:18)
[2020-08-11] MEDS: FLUoxetine HCl 20 MG CAP PO SCH (08:19)
[2020-08-11] MEDS: Aspirin Chewable 81 MG TAB PO SCH (08:19)
[2020-08-11] MEDS: Alogliptin 25 MG TAB PO SCH (08:19)
[2020-08-11] MEDS: busPIRone HCl 5 MG TAB PO SCH ×2 (08:20→21:17)
[2020-08-11] MEDS: metFORMIN 500 MG TAB PO SCH (08:20)
[2020-08-11] MEDS: Enoxaparin Sodium 40 MG/0.4 ML SYRINGE SC SCH (08:20)
[2020-08-11] MEDS: Clopidogrel Bisulfate 75 MG TAB PO SCH (08:20)
[2020-08-11] MEDS: Empagliflozin 25 MG TAB PO SCH (08:20)
[2020-08-11 09:10] LABS: Hemoglobin A1c 7.2 % (4.0-6.0)
[2020-08-11 09:26] LABS: ALT (SGPT) 27 U/L (8-55); AST (SGOT) 33 U/L (5-34); Albumin 4.3 g/dL (3.4-4.8); Alkaline Phosphatase 75 U/L (40-110); Anion Gap 16 mmol/L (10-20); BUN (Urea Nitrogen) 23 mg/dL (9.8-20.1); Bilirubin, Direct 0.1 mg/dL (0.1-0.3); Bilirubin, Total 0.3 mg/dL (0.2-1.2); Calc. Creatinine Clearance 104 mL/min (70-130); Calcium 9.3 mg/dL (7.8-10.44); Carbon Dioxide 22 mmol/L (23-31); Chloride 103 mmol/L (98-107); Glucose 141 mg/dL (80-115); Potassium 4.4 mmol/L (3.5-5.1); Protein, Total 7.8 g/dL (6.0-8.3); Sodium 137 mmol/L (136-145)
[2020-08-11] MEDS: Mometasone 200 MCG/Formoterol 5 MCG 120 PUFF INHALER INH SCH ×2 (14:03→18:27)
[2020-08-11] MEDS: Simvastatin 10 MG TAB PO SCH (21:17)
[2020-08-12] MEDS: Nitroglycerin 2% Ointment 1 INCH/1 GM Packet TOP SCH ×2 (03:40→06:08)
[2020-08-12 05:05] LABS: Cardiac Risk 4.2 (Less than 4.5)
[2020-08-12] MEDS: Aspirin Chewable 81 MG TAB PO SCH (06:03)
[2020-08-12] MEDS: FLUoxetine HCl 20 MG CAP PO SCH (06:04)
[2020-08-12] MEDS: busPIRone HCl 5 MG TAB PO SCH ×2 (06:04→20:55)
[2020-08-12] MEDS: Lisinopril 20 MG TAB PO SCH ×2 (06:05→20:55)
[2020-08-12] MEDS: Levothyroxine Sodium 125 MCG TAB PO SCH (06:05)
[2020-08-12] MEDS: Clopidogrel Bisulfate 75 MG TAB PO SCH (06:08)
[2020-08-12] MEDS: Mometasone 200 MCG/Formoterol 5 MCG 120 PUFF INHALER INH SCH ×2 (07:07→18:32)
[2020-08-12] MEDS ORDERED: Fentanyl 100 MCG/2 ML VIAL ONE (07:08)
[2020-08-12] MEDS ORDERED: Midazolam HCl 2 mg/2 ml Vial ONE (07:08)
[2020-08-12] MEDS ORDERED: Heparin 10,000 UNITS/ 10 ML VIAL ONE (07:46)
[2020-08-12] MEDS ORDERED: Verapamil 5 MG/2 ML VIAL ONE ×2 (07:47→08:22)
[2020-08-12] MEDS ORDERED: Adenosine 6 MG/2 ML VIAL ONE (07:47)
[2020-08-12] MEDS ORDERED: Nitroglycerin 100MG/250ML BOT 0 ML ONE (07:47)
[2020-08-12] MEDS ORDERED: Clopidogrel Bisulfate 300 MG TAB ONE (08:03)
[2020-08-12] MEDS ORDERED: Sodium Chloride 0.9% 1,000 ML IV SCH (08:15)
[2020-08-12] MEDS ORDERED: hydrALAZINE 20 MG/ML VIAL ONE (08:32)
[2020-08-12] MEDS ORDERED: Nitroglycerin 0.4 MG TAB (25 Tab Bottle) ONE (08:33)
[2020-08-12] MEDS ORDERED: Nitroglycerin 0.4 MG TAB (25 Tab Bottle) SL SCH (08:45)
[2020-08-12] MEDS ORDERED: hydrALAZINE 20 MG/ML VIAL SLOW IVP SCH (08:45)
[2020-08-12] MEDS ORDERED: Iopamidol 370 76% 100 ML VIAL ONE (11:49)
[2020-08-12] MEDS ORDERED: Iopamidol 370 76% 50 ML VIAL FS ONE (11:49)
[2020-08-12] MEDS: Empagliflozin 25 MG TAB PO SCH (14:46)
[2020-08-12] MEDS: Alogliptin 25 MG TAB PO SCH (14:46)
[2020-08-12] MEDS: Simvastatin 10 MG TAB PO SCH (20:55)
[2020-08-13 04:39] LABS: #Basophils 0.1 thou/uL (0.0-0.2); #Eosinphils 0.2 thou/uL (0.0-0.7); #Lymphocytes 1.9 thou/uL (1.20-3.40); #Monocytes 0.4 thou/uL (0.11-0.59); #Neutrophils 6.6 thou/uL (1.40-6.50); %Basophils 0.9 % (0.0-1.0); %Eosinophils 2.2 % (0.0-10.0); %Lymphocytes 20.8 % (21.0-51.0); %Monocytes 4.7 % (0.0-10.0); %Neutrophils 71.4 % (42.0-75.0); Hemoglobin 13.2 g/dL (12.0-16.0); Mean Corpuscular HGB CONC 32.4 g/dL (32.0-36.0); Mean Corpuscular Hemoglobin 30.1 pg (27.0-31.0); Mean Platelet Volume 7.3 fL (7.4-10.4); Platelet Count 189 thou/uL (130-400); RBC Distribution Width 13.6 % (11.5-14.5); Red Blood Cell (RBC) Count 4.38 mill/uL (4.20-5.40); White Blood Cell (WBC) Count 9.2 thou/uL (4.8-10.8)
[2020-08-13 05:05] LABS: ALT (SGPT) 23 U/L (8-55); AST (SGOT) 22 U/L (5-34); Alkaline Phosphatase 67 U/L (40-110); Anion Gap 15 mmol/L (10-20); BUN (Urea Nitrogen) 20 mg/dL (9.8-20.1); Bilirubin, Total 0.4 mg/dL (0.2-1.2); Calc. Creatinine Clearance 92 mL/min (70-130); Calcium 9.1 mg/dL (7.8-10.44); Carbon Dioxide 22 mmol/L (23-31); Chloride 105 mmol/L (98-107); Glucose 115 mg/dL (80-115); Potassium 3.8 mmol/L (3.5-5.1); Sodium 138 mmol/L (136-145)
[2020-08-13] MEDS: Levothyroxine Sodium 125 MCG TAB PO SCH (05:51)
[2020-08-13] MEDS: Mometasone 200 MCG/Formoterol 5 MCG 120 PUFF INHALER INH SCH (07:09)
[2020-08-13 08:42] VITALS: TEMP 97.5
[2020-08-13] MEDS: Aspirin Chewable 81 MG TAB PO SCH (08:44)
[2020-08-13] MEDS: Alogliptin 25 MG TAB PO SCH (08:44)
[2020-08-13] MEDS: FLUoxetine HCl 20 MG CAP PO SCH (08:44)
[2020-08-13] MEDS: Lisinopril 20 MG TAB PO SCH (08:45)
[2020-08-13] MEDS: Clopidogrel Bisulfate 75 MG TAB PO SCH (08:45)
[2020-08-13] MEDS: busPIRone HCl 5 MG TAB PO SCH (08:45)
[2020-08-13] MEDS: Empagliflozin 25 MG TAB PO SCH (08:47)
[2020-08-13 08:49] VITALS: BP 137/69
== END 2020-08-13 10:40 | disposition home or self-care (01) | DRG 247 ==
LOC: ERS 14:04 → 2NO 16:07 → OBSVTOIN 08-09 14:30
PROVIDERS: ADMIT Specialist; ATTEND Specialist
PROC: 027034Z Dilation of Coronary Artery, One Artery with Drug-eluting Intraluminal Device, Percutaneous Approach (ICD-10-PCS; principal; 2020-08-12)
PROC: B2111ZZ Fluoroscopy of Multiple Coronary Arteries using Low Osmolar Contrast (ICD-10-PCS; 2020-08-12)
DX: I25.110 Atherosclerotic heart disease of native coronary artery with unstable angina pectoris (principal); Z20.822 Contact with and (suspected) exposure to COVID-19; E11.9 Type 2 diabetes mellitus without complications; E78.5 Hyperlipidemia, unspecified; I10 Essential (primary) hypertension; J44.9 Chronic obstructive pulmonary disease, unspecified; G47.00 Insomnia, unspecified; K21.9 Gastro-esophageal reflux disease without esophagitis; N32.81 Overactive bladder; F41.9 Anxiety disorder, unspecified; F32.9 Major depressive disorder, single episode, unspecified; F17.210 Nicotine dependence, cigarettes, uncomplicated; E66.01 Morbid (severe) obesity due to excess calories; E78.00 Pure hypercholesterolemia, unspecified; E03.9 Hypothyroidism, unspecified; I25.2 Old myocardial infarction; Z86.73 Personal history of transient ischemic attack (TIA), and cerebral infarction without residual deficits; Z87.442 Personal history of urinary calculi; Z95.5 Presence of coronary angioplasty implant and graft; Z90.49 Acquired absence of other specified parts of digestive tract; Z90.710 Acquired absence of both cervix and uterus; Z79.51 Long term (current) use of inhaled steroids; Z79.01 Long term (current) use of anticoagulants; Z79.899 Other long term (current) drug therapy; Z79.890 Hormone replacement therapy; Z68.29 Body mass index [BMI] 29.0-29.9, adult
CPT/HCPCS: 36415; 36416; 71045; 76942; 78452; 80048; 80053; 80061; 80076; 82550; 83036; 83690; 84443; 84484; 85025; 85347; 86769; 87635; 92928; 93005; 93010; 93017; 93306; 93454; 94664; 94760; 96372; 97139; 99152; 99153; A9500; C1874; C9600; G0378; J0153; J0360; J1644; J1650; J2250; J2785; J3010; Q9967; U0003

== ENCOUNTER 2020-09-30 16:12 | Inpatient (IN) | payer MEDICARE ==
[2020-09-30 16:59] LABS: #Eosinphils 0.2 thou/uL (0.0-0.7); #Lymphocytes 1.9 thou/uL (1.20-3.40); #Monocytes 0.4 thou/uL (0.11-0.59); #Neutrophils 5.2 thou/uL (1.40-6.50); %Basophils 0.5 % (0.0-1.0); %Eosinophils 2.6 % (0.0-10.0); %Lymphocytes 24.2 % (21.0-51.0); %Monocytes 4.8 % (0.0-10.0); %Neutrophils 67.9 % (42.0-75.0); Hemoglobin 13.3 g/dL (12.0-16.0); Mean Corpuscular HGB CONC 32.9 g/dL (32.0-36.0); Mean Corpuscular Hemoglobin 30.9 pg (27.0-31.0); Mean Platelet Volume 7.3 fL (7.4-10.4); Platelet Count 212 thou/uL (130-400); RBC Distribution Width 13.4 % (11.5-14.5); Red Blood Cell (RBC) Count 4.31 mill/uL (4.20-5.40); White Blood Cell (WBC) Count 7.7 thou/uL (4.8-10.8)
--- NOTE | 2020-09-30 17:02 | CT ---
CT HEAD WITHOUT IV CONTRAST COMPARISON: 02/14/2020 HISTORY: Headache. TECHNIQUE: Axial CT imaging at 5 mm intervals from vertex through skull base without contrast FINDINGS: There is prominence in the region of the sella turcica which could potentially relate to an empty aletha la turcica. This is a stable finding. There is no evidence of an acute infarction, hemorrhage, mass effect, or midline shift. The ventricular system is normal in size, shape, and position. Skull base has a normal CT appearance. Visualized paranasal sinuses are clear. Osseous structures appear intact. IMPRESSION: 1. No acute intracranial abnormality demonstrated.
[2020-09-30 17:20] LABS: ALT (SGPT) 25 U/L (8-55); AST (SGOT) 31 U/L (5-34); Albumin 4.2 g/dL (3.4-4.8); Alkaline Phosphatase 74 U/L (40-110); Anion Gap 16 mmol/L (10-20); BUN (Urea Nitrogen) 25 mg/dL (9.8-20.1); Bilirubin, Total 0.3 mg/dL (0.2-1.2); Calc. Creatinine Clearance 0 mL/min (70-130); Calcium 9.2 mg/dL (7.8-10.44); Carbon Dioxide 24 mmol/L (23-31); Chloride 102 mmol/L (98-107); Globulin 3.3 g/dL (2.4-3.5); Glucose 242 mg/dL (80-115); Potassium 4.1 mmol/L (3.5-5.1); Protein, Total 7.5 g/dL (5.8-8.1); Sodium 138 mmol/L (136-145)
--- NOTE | 2020-09-30 17:22 | RAD ---
Chest AP view INDICATION: Chest pain COMPARISON: August 07, 2020 FINDINGS: Lungs: The lungs are clear Cardiac silhouette: The cardiomediastinal silhouette appears within normal limits. Pulmonary vasculature: Normal Pleural spaces: No pleural effusion or pneumothorax is demonstrated. Upper abdomen: No abnormality seen. Osseous structures: No acute osseous abnormality. Additional findings: None. IMPRESSION: No acute cardiopulmonary abnormality.
[2020-09-30 21:45] LABS: Troponin I Less than 0.010 ng/mL (< 0.028)
[2020-10-01 00:27] LABS: Troponin I 0.013 ng/mL (< 0.028)
[2020-10-01 05:16] LABS: SARS-CoV-2 PCR by NAA Not Detected (NotDetected)
[2020-10-01] MEDS ORDERED: traMADol HCl 50 MG TAB PO PRN (08:29)
[2020-10-01] MEDS ORDERED: ALPRAZolam 0.5 MG TAB PO PRN (08:30)
[2020-10-01] MEDS ORDERED: Nitroglycerin 0.4 MG TAB (25 Tab Bottle) SL PRN (08:33)
[2020-10-01] MEDS ORDERED: Insulin Regular 300 UNITS/3 ML VIAL SC PRN ×2 (08:45)
[2020-10-01] MEDS ORDERED: Dextrose 5% in Water 1,000 ML IV PRN (08:45)
[2020-10-01] MEDS ORDERED: Dextrose 50% Abboject 50 ML SYRINGE IVP PRN (08:45)
[2020-10-01] MEDS ORDERED: Lisinopril 10 MG TAB PO SCH (09:00)
[2020-10-01] MEDS ORDERED: Lisinopril 20 MG TAB PO SCH (09:00)
[2020-10-01] MEDS ORDERED: [UNRECOGNIZED DRUG - OTHER] PO SCH (09:00)
[2020-10-01 09:09] LABS: #Basophils 0.1 thou/uL (0.0-0.2); #Eosinphils 0.2 thou/uL (0.0-0.7); #Lymphocytes 1.7 thou/uL (1.20-3.40); #Monocytes 0.4 thou/uL (0.11-0.59); #Neutrophils 5.6 thou/uL (1.40-6.50); %Basophils 0.8 % (0.0-1.0); %Eosinophils 2.9 % (0.0-10.0); %Lymphocytes 21.6 % (21.0-51.0); %Neutrophils 69.8 % (42.0-75.0); Hemoglobin 13.8 g/dL (12.0-16.0); Mean Corpuscular HGB CONC 33.6 g/dL (32.0-36.0); Mean Corpuscular Volume 95.2 fL (78.0-98.0); Mean Platelet Volume 7.2 fL (7.4-10.4); Platelet Count 183 thou/uL (130-400); RBC Distribution Width 13.5 % (11.5-14.5); Red Blood Cell (RBC) Count 4.33 mill/uL (4.20-5.40)
[2020-10-01 09:24] LABS: Hemoglobin A1c 7.2 % (4.0-6.0)
[2020-10-01 09:37] LABS: Anion Gap 14 mmol/L (10-20); BUN (Urea Nitrogen) 23 mg/dL (9.8-20.1); Calc. Creatinine Clearance 0 mL/min (70-130); Calcium 9.4 mg/dL (7.8-10.44); Carbon Dioxide 26 mmol/L (23-31); Cardiac Risk 4.5 (Less than 4.5); Chloride 102 mmol/L (98-107); Cholesterol 195 mg/dl (< 200 Desired); Glucose 215 mg/dL (80-115); HDL Cholesterol 43 mg/dL (>60 Neg Risk); LDL Cholesterol, Calculated 76 mg/dL; Potassium 4.1 mmol/L (3.5-5.1); Sodium 138 mmol/L (136-145); Triglycerides 378 mg/dL (Less than 150); Uric Acid 3.1 mg/dL (2.6-6.0)
[2020-10-01] MEDS ORDERED: Aspirin 325 MG TAB ONE (10:20)
[2020-10-01] MEDS ORDERED: Clopidogrel Bisulfate 75 MG TAB ONE (10:23)
[2020-10-01] MEDS: Allopurinol 300 MG TAB PO SCH (10:28)
[2020-10-01] MEDS: Aspirin 325 MG TAB PO SCH (10:29)
[2020-10-01] MEDS: Clopidogrel Bisulfate 75 MG TAB PO SCH (10:29)
[2020-10-01] MEDS: busPIRone HCl 5 MG TAB PO SCH ×2 (10:29→21:39)
[2020-10-01] MEDS: FLUoxetine HCl 20 MG CAP PO SCH (10:29)
[2020-10-01] MEDS: Lisinopril 20 MG TAB PO SCH ×2 (10:29→21:39)
[2020-10-01] MEDS ORDERED: Insulin Regular 300 UNITS/3 ML VIAL ONE (13:42)
[2020-10-01 18:59] VITALS: BMI 36.6
[2020-10-01] MEDS ORDERED: Simvastatin 10 MG TAB PO SCH (21:00)
[2020-10-02] MEDS ORDERED: Ondansetron PF 4 MG/2 ML Vial SLOW IVP PRN (08:58)
[2020-10-02] MEDS ORDERED: FLU VACC QS2020-21(6MOS UP)/PF 60 MCG/0.5 ML SYRINGE IM ONE (09:00)
--- NOTE | 2020-10-02 09:00 | HP ---
CHIEF COMPLAINT: As chest pain. HISTORY OF PRESENT ILLNESS: The patient is a 65-year-old female, who is in her usual state of health when 20 minutes prior to coming to the emergency room, she began to have substernal chest pressure and not feeling well. She had history of coronary artery disease with recent catheterization and stent placement in July of 2020. She took a nitroglycerin. It did not improve. EMS was called and gave her nitroglycerin and she arrived with relief of chest pain. She did have a headache. She did state that she felt fatigued and weak like she "had been run over by a truck." It started the day prior. Additional labs were run, they were negative. Dr. Burns was contacted because of the patient's prior history and symptoms and response to nitroglycerin. It was decided to observe her and repeat her stress test. PAST MEDICAL HISTORY: Significant for coronary artery disease with stent placement, kidney stone, previous acute [place], type 2 diabetes, hypothyroidism, hyperlipidemia, hypertension, COPD, asthma, cataract, left eye vertigo, hyperlipidemia and overactive bladder as well as GERD. PAST SURGICAL HISTORY: Includes the aforementioned catheterization with placement of stents x5, appendectomy, cholecystectomy, hysterectomy, oophorectomy, and right tibia surgery. PSYCHIATRIC HISTORY: Includes anxiety and depression. SOCIAL HISTORY: She is a former smoker. She lives at [facility]. FAMILY HISTORY: Noncontributory. ALLERGIES: NO KNOWN DRUG ALLERGIES. CURRENT MEDICATIONS: On admission; 1. Vascepa 1 g two b.i.d. 2. Allopurinol 300 mg daily. The other medications include; 1. Ditropan 5 mg once a day. 2. Aspirin 81 mg daily. 3. Metoprolol tartrate 25 mg b.i.d. 4. Levothyroxine 150 mcg daily. 5. Glyxambi 25/5 once a day. 6. Buspirone 15 mg b.i.d. 7. Klonopin 50 mg at bedtime. 8. Protonix 40 mg daily. 9. Plavix 75 mg daily. 10. Prozac 60 mg daily. 11. Lovastatin 20 mg daily. 12. Quinapril 20 mg b.i.d. 13. Melatonin p.r.n. 14. Xanax 0.5 mg p.r.n. 15. Flexeril 10 mg p.r.n. 16. Tramadol 50 mg q.6 p.r.n. REVIEW OF SYSTEMS: CONSTITUTIONAL: At the time of admission; constitutionally felt fatigued, tired, and weak. HEENT: Denies drainage or lesions in head, ears, eyes, nose, or throat. CHEST: Had no shortness of breath or cough. CARDIOVASCULAR: Denies palpitations, but did have chest pressure as a reason for admission. GASTROINTESTINAL: Denies nausea, vomiting, or diarrhea. GENITOURINARY: Denies dysuria, blood in urine or stool. MUSCULOSKELETAL: Has general muscular weakness, but no specific areas of pain, swelling, or edema. SKIN: No new rashes or lesions. NEUROLOGIC: Admits to headache, but no trouble with mentation, sensation, or balance. PSYCHIATRIC: Has anxiety feels like she is in remission. PHYSICAL EXAMINATION: At the time of admission; VITAL SIGNS: Blood pressure 151/82, pulse 73, respirations 19, and temperature 98.6. Pain scale 1/10 at the time of admission. O2 saturation 100% on room air. GENERAL: This is a well-developed, well-nourished, obese female, alert, oriented, cooperative with office cataract in left eye. HEENT: Normocephalic, atraumatic. One pupils round and reactive to light and accommodation. Other pupil nonresponsive with scarring. TMs, nares, and pharynx are clear. NECK: Supple. Trachea midline. CHEST: Clear to auscultation. BREASTS: Deferred. HEART: Regular rate and rhythm without murmur. ABDOMEN: Soft and nontender without organomegaly. GENITOURINARY: Deferred. EXTREMITIES: Without clubbing, cyanosis, or edema. Normal range of motion present. SKIN: Without acute rashes or lesions. NEUROLOGIC: Cranial nerves are intact. Gait and cerebral function intact. Sensory exam is intact. Mental status is baseline. LABORATORY DATA: Lab work thus far showed WBCs 8, hemoglobin 13.8, hematocrit 41.2 with platelets at 183. Sodium 139, potassium 4.1, chloride 102, CO2 of 26, BUN 23, creatinine 0.01 with glucose at 215. Her TSH returned 1.0. Hemoglobin A1c 7.2. IMAGING DATA: Chest x-ray showed no acute cardiovascular findings. CT of the brain showed no acute intracranial abnormalities. ASSESSMENT: 1. Chest pain and history of coronary artery disease with recent stent placement. 2. Hypertension. 3. Dyslipidemia. 4. Diabetes. PLAN: Due to multiple risk factors, the patient is obs and cardiac enzymes were run as well as treadmill stress test. Dr. Pimentel has been spoken with and should the stress test return positive, he will be consulted for further evaluation. Job ID: [id number]
[2020-10-02] MEDS ORDERED: Regadenoson 0.4 MG/5 ML SYRINGE ONE (10:20)
[2020-10-02] MEDS: Aspirin 325 MG TAB PO SCH (10:37)
[2020-10-02] MEDS: Clopidogrel Bisulfate 75 MG TAB PO SCH (10:38)
[2020-10-02] MEDS: Lisinopril 20 MG TAB PO SCH (10:38)
[2020-10-02] MEDS: FLUoxetine HCl 20 MG CAP PO SCH (10:39)
[2020-10-02] MEDS: busPIRone HCl 5 MG TAB PO SCH (10:39)
[2020-10-02] MEDS: Allopurinol 300 MG TAB PO SCH (10:46)
--- NOTE | 2020-10-02 10:52 | NM ---
EXAM: CARDIAC SPECT HISTORY: Chest pain, coronary artery disease, [place], stent, COPD, asthma, stroke, hypertension, diabetes , dyslipidemia TECHNIQUE: A myocardial perfusion scan was performed using the single isotope 2 day protocol with michael hnetium 99m sestamibi. [31 mCi] was injected intravenously for the rest exam and 30 mCi for the stress study. Pharmacologic stress with Lexiscan was monitored and interpreted by Dr. Nguyen FINDINGS: Homogeneous tracer distribution is seen in the myocardial segments on stress and rest image s without fixed or reversible defects. Gated SPECT LVEF: 52% Wall motion exam: Normal IMPRESSION: Normal myocardial perfusion scan
[2020-10-02 13:06] VITALS: BP 141/71; TEMP 98
--- NOTE | 2020-10-03 21:30 | PQF ---
CLINICAL DOCUMENTATION CLARIFICATION FORM: Dear : Shaq Burns Date / Time: 10/04/2020 Please exercise your independent, professional judgment in responding to the clarification form. Clinical indicators are provided on the bottom of this form for your review Please check appropriate box(es): [ ] Chest pain is due to coronary artery disease [ ] Chest pain is due to GERD [ x ] Chest pain is due to unknown etiology [ ] Other diagnosis [ ] Unable to determine In addition, please specify: Present on Admission (POA): [ x ] Yes [ ] No [ ] Unable to determine To be completed by CDI/Coding staff for physician review: Present Clinical Indicators - Signs / Symptoms / Labs Results and Location in Medical Record [ x ] Chest pain and history of coronary artery disease with recent stent. Due to multiple risk factors, cardiac enzymes were run as well as treadmill stress test. Dr. Pimentel has been talked and should the stress test return positive, he will be consulted for further evaluation H and P [ x ] She began to have chest discomfort and not feeling well. Had a history of CAD with recent cath and stent in July 2020. she took a nitroglycerin, did not reduce. EMS was called and gave her nitroglycerin and arrived with relief of chest pain H and P [ x ] She has history of GERD H and P [ x ] Normal myocardial perfusion scan Stress test 10/02 Present Risk Factors Results and Location in Medical Record [ x ] history of coronary artery disease with recent stent, history of [place], HTN, gerd, COPD, former smoker H and P Present Treatments Results and Location in Medical Record [ x ] Nitroglycerin 0.4 mg q5min Medications [ x ] Aspirin 325 mg daily Medications [ x ] Stress test nuclear medicine Reports [ x ] Chest x-ray Reports CDS/[employer] Signature: Phone #: Date/Time: 10/04/2020 This is a permanent part of the Medical Record [facility]
== END 2020-10-02 13:18 | disposition home or self-care (01) | DRG 313 ==
LOC: ERS 16:12 → 3SE 18:13 → ERHOLD 20:44 → 3SE 10-01 00:57 → OBSVTOIN 10-02 10:48
PROVIDERS: ADMIT Specialist; ATTEND Specialist
DX: R07.9 Chest pain, unspecified (principal); I25.10 Atherosclerotic heart disease of native coronary artery without angina pectoris; K21.9 Gastro-esophageal reflux disease without esophagitis; E11.9 Type 2 diabetes mellitus without complications; E03.9 Hypothyroidism, unspecified; F41.9 Anxiety disorder, unspecified; F32.9 Major depressive disorder, single episode, unspecified; E78.5 Hyperlipidemia, unspecified; I10 Essential (primary) hypertension; Z20.822 Contact with and (suspected) exposure to COVID-19; J44.9 Chronic obstructive pulmonary disease, unspecified; I25.2 Old myocardial infarction; Z90.710 Acquired absence of both cervix and uterus; Z90.49 Acquired absence of other specified parts of digestive tract; Z87.891 Personal history of nicotine dependence; Z79.82 Long term (current) use of aspirin
CPT/HCPCS: 36415; 36416; 70450; 71045; 78452; 80048; 80053; 80061; 83036; 83880; 84443; 84484; 84550; 85025; 85379; 87635; 93005; 93017; A9500; G0378; J1815; J2785; U0003; U0005

== ENCOUNTER 2020-10-14 17:21 | Emergency (ER) | payer MEDICARE ==
[2020-10-14 18:17] LABS: #Basophils 0.1 thou/uL (0.0-0.2); #Eosinphils 0.2 thou/uL (0.0-0.7); #Lymphocytes 1.8 thou/uL (1.20-3.40); #Monocytes 0.5 thou/uL (0.11-0.59); #Neutrophils 6.1 thou/uL (1.40-6.50); %Basophils 0.8 % (0.0-1.0); %Eosinophils 2.7 % (0.0-10.0); %Lymphocytes 20.7 % (21.0-51.0); %Monocytes 5.9 % (0.0-10.0); %Neutrophils 69.9 % (42.0-75.0); Hemoglobin 14.1 g/dL (12.0-16.0); Mean Corpuscular HGB CONC 33.5 g/dL (32.0-36.0); Mean Corpuscular Hemoglobin 31.8 pg (27.0-31.0); Mean Corpuscular Volume 94.8 fL (78.0-98.0); Mean Platelet Volume 7.4 fL (7.4-10.4); Platelet Count 236 thou/uL (130-400); RBC Distribution Width 13.7 % (11.5-14.5); Red Blood Cell (RBC) Count 4.44 mill/uL (4.20-5.40); White Blood Cell (WBC) Count 8.7 thou/uL (4.8-10.8)
[2020-10-14 18:46] LABS: ALT (SGPT) 27 U/L (8-55); AST (SGOT) 27 U/L (5-34); Albumin 4.5 g/dL (3.4-4.8); Alkaline Phosphatase 85 U/L (40-110); Anion Gap 17 mmol/L (10-20); BUN (Urea Nitrogen) 23 mg/dL (9.8-20.1); Bilirubin, Total 0.2 mg/dL (0.2-1.2); CK (CPK) 40 U/L (29-168); Calc. Creatinine Clearance 0 mL/min (70-130); Calcium 10.2 mg/dL (7.8-10.44); Carbon Dioxide 25 mmol/L (23-31); Chloride 99 mmol/L (98-107); Globulin 3.5 g/dL (2.4-3.5); Glucose 385 mg/dL (80-115); Lipase 22 U/L (8-78); Sodium 137 mmol/L (136-145)
== END 2020-10-14 23:02 | disposition home or self-care (01) ==
LOC: ERS 17:21
DX: R07.89 Other chest pain (principal); I25.2 Old myocardial infarction; E11.9 Type 2 diabetes mellitus without complications; E03.9 Hypothyroidism, unspecified; E78.00 Pure hypercholesterolemia, unspecified; I10 Essential (primary) hypertension; J44.9 Chronic obstructive pulmonary disease, unspecified; Z79.82 Long term (current) use of aspirin; Z79.899 Other long term (current) drug therapy
CPT/HCPCS: 36415; 70450; 71045; 80053; 82550; 83690; 84484; 85025; 93005

== ENCOUNTER 2020-12-30 10:03 | Outpatient (CLI) | payer MEDICARE ==
[2020-12-30 17:52] LABS: SARS-CoV-2 PCR by NAA Not Detected (NotDetected)
== END 2020-12-30 10:04 | disposition home or self-care (01) ==
LOC: LABBT 10:03
PROVIDERS: ATTEND Internal Medicine Gastroenterology
DX: Z01.812 Encounter for preprocedural laboratory examination (principal); R07.9 Chest pain, unspecified; J44.9 Chronic obstructive pulmonary disease, unspecified; I50.9 Heart failure, unspecified; R13.10 Dysphagia, unspecified; I25.10 Atherosclerotic heart disease of native coronary artery without angina pectoris; E11.9 Type 2 diabetes mellitus without complications; Z20.822 Contact with and (suspected) exposure to COVID-19
CPT/HCPCS: U0003; U0005; 87635

== ENCOUNTER 2021-01-02 12:08 | Day surgery (SDC) | payer MEDICARE ==
[2021-01-01 10:18] VITALS: BMI 37.6
[2021-01-02] MEDS ORDERED: PROPOFOL 200 MG/20 ML VIAL ONE (14:35)
== END 2021-01-02 16:00 | disposition home or self-care (01) ==
LOC: SDC 12:08
PROVIDERS: ATTEND Internal Medicine Gastroenterology
PROC: 0D737ZZ Dilation of Lower Esophagus, Via Natural or Artificial Opening (ICD-10-PCS; principal; 2021-01-02)
PROC: 0D717ZZ Dilation of Upper Esophagus, Via Natural or Artificial Opening (ICD-10-PCS; 2021-01-02)
PROC: 0D727ZZ Dilation of Middle Esophagus, Via Natural or Artificial Opening (ICD-10-PCS; 2021-01-02)
PROC: 0DB58ZX Excision of Esophagus, Via Natural or Artificial Opening Endoscopic, Diagnostic (ICD-10-PCS; 2021-01-02)
PROC: 0DB78ZX Excision of Stomach, Pylorus, Via Natural or Artificial Opening Endoscopic, Diagnostic (ICD-10-PCS; 2021-01-02)
DX: K31.89 Other diseases of stomach and duodenum (principal); K44.9 Diaphragmatic hernia without obstruction or gangrene; K25.9 Gastric ulcer, unspecified as acute or chronic, without hemorrhage or perforation; K21.00 Gastro-esophageal reflux disease with esophagitis, without bleeding; R13.10 Dysphagia, unspecified; I11.0 Hypertensive heart disease with heart failure; I50.9 Heart failure, unspecified; E11.9 Type 2 diabetes mellitus without complications; I25.10 Atherosclerotic heart disease of native coronary artery without angina pectoris; E03.9 Hypothyroidism, unspecified; G89.29 Other chronic pain; M54.9 Dorsalgia, unspecified; H54.62 Unqualified visual loss, left eye, normal vision right eye; J44.9 Chronic obstructive pulmonary disease, unspecified; Z86.73 Personal history of transient ischemic attack (TIA), and cerebral infarction without residual deficits; Z79.02 Long term (current) use of antithrombotics/antiplatelets; Z79.82 Long term (current) use of aspirin; Z79.84 Long term (current) use of oral hypoglycemic drugs; Z79.899 Other long term (current) drug therapy; Z91.018 Allergy to other foods
CPT/HCPCS: 88305; J2704

== ENCOUNTER 2021-01-26 16:56 | Emergency (ER) | payer MEDICARE ==
[2021-01-26 17:48] LABS: #Basophils 0.1 thou/uL (0.0-0.2); #Eosinphils 0.3 thou/uL (0.0-0.7); #Monocytes 0.5 thou/uL (0.11-0.59); #Neutrophils 6.4 thou/uL (1.40-6.50); %Basophils 0.8 % (0.0-1.0); %Eosinophils 3.8 % (0.0-10.0); %Lymphocytes 21.8 % (21.0-51.0); %Neutrophils 68.7 % (42.0-75.0); Mean Corpuscular HGB CONC 33.8 g/dL (32.0-36.0); Mean Corpuscular Hemoglobin 32.2 pg (27.0-31.0); Mean Corpuscular Volume 95.5 fL (78.0-98.0); Mean Platelet Volume 7.4 fL (7.4-10.4); Platelet Count 241 thou/uL (130-400); Red Blood Cell (RBC) Count 4.34 mill/uL (4.20-5.40); White Blood Cell (WBC) Count 9.3 thou/uL (4.8-10.8)
[2021-01-26 18:08] LABS: ALT (SGPT) 26 U/L (8-55); AST (SGOT) 31 U/L (5-34); Albumin 4.4 g/dL (3.4-4.8); Alkaline Phosphatase 74 U/L (40-110); Anion Gap 16 mmol/L (10-20); BUN (Urea Nitrogen) 23 mg/dL (9.8-20.1); Bilirubin, Total 0.3 mg/dL (0.2-1.2); Calc. Creatinine Clearance 0 mL/min (70-130); Calcium 9.3 mg/dL (7.8-10.44); Carbon Dioxide 22 mmol/L (23-31); Chloride 102 mmol/L (98-107); Globulin 3.3 g/dL (2.4-3.5); Glucose 208 mg/dL (80-115); Lipase 14 U/L (8-78); Potassium 4.4 mmol/L (3.5-5.1); Protein, Total 7.7 g/dL (5.8-8.1); Sodium 136 mmol/L (136-145)
== END 2021-01-26 21:58 | disposition home or self-care (01) ==
LOC: ERS 16:56
DX: R07.2 Precordial pain (principal); R06.02 Shortness of breath; I25.2 Old myocardial infarction; E11.9 Type 2 diabetes mellitus without complications; E03.9 Hypothyroidism, unspecified; E78.5 Hyperlipidemia, unspecified; J44.9 Chronic obstructive pulmonary disease, unspecified; Z87.891 Personal history of nicotine dependence
CPT/HCPCS: 36415; 71045; 80053; 83690; 83880; 84484; 85025; 93005; 94760

== ENCOUNTER 2021-05-17 19:08 | Emergency (ER) | payer OTHER, MEDICARE ==
[2021-05-17] MEDS ORDERED: Morphine 4 MG/ML VIAL ONE (20:00)
[2021-05-17] MEDS ORDERED: Ondansetron ODT 4 MG TAB ONE ×2 (20:01→20:02)
[2021-05-17] MEDS ORDERED: Ondansetron ODT 8 MG TAB ONE (20:02)
== END 2021-05-17 22:05 | disposition home or self-care (01) ==
LOC: ERS 19:08
DX: S20.211A Contusion of right front wall of thorax, initial encounter (principal); S80.01XA Contusion of right knee, initial encounter; S70.01XA Contusion of right hip, initial encounter; E11.9 Type 2 diabetes mellitus without complications; E03.9 Hypothyroidism, unspecified; E78.5 Hyperlipidemia, unspecified; E78.00 Pure hypercholesterolemia, unspecified; I10 Essential (primary) hypertension; J44.9 Chronic obstructive pulmonary disease, unspecified; I25.2 Old myocardial infarction; Z87.891 Personal history of nicotine dependence; Z86.73 Personal history of transient ischemic attack (TIA), and cerebral infarction without residual deficits; W01.0XXA Fall on same level from slipping, tripping and stumbling without subsequent striking against object, initial encounter
CPT/HCPCS: 96372; J2270; Q0162

== ENCOUNTER 2021-06-21 18:35 | Emergency (ER) | payer MEDICARE ==
[2021-06-21] MEDS ORDERED: Acetaminophen 500 MG TAB ONE (18:58)
== END 2021-06-21 21:08 | disposition home or self-care (01) ==
LOC: ERS 18:35
DX: S80.01XA Contusion of right knee, initial encounter (principal); I25.2 Old myocardial infarction; E11.9 Type 2 diabetes mellitus without complications; E03.9 Hypothyroidism, unspecified; E78.5 Hyperlipidemia, unspecified; E78.00 Pure hypercholesterolemia, unspecified; I10 Essential (primary) hypertension; J44.9 Chronic obstructive pulmonary disease, unspecified; Z86.73 Personal history of transient ischemic attack (TIA), and cerebral infarction without residual deficits; Z87.891 Personal history of nicotine dependence; W18.30XA Fall on same level, unspecified, initial encounter; Y92.129 Unspecified place in nursing home as the place of occurrence of the external cause

== ENCOUNTER 2021-08-09 18:29 | Emergency (ER) | payer OTHER, MEDICARE ==
[2021-08-09] MEDS ORDERED: Acetaminophen 500 MG TAB ONE (19:19)
== END 2021-08-09 21:00 | disposition home or self-care (01) ==
LOC: ERS 18:29
DX: S80.11XA Contusion of right lower leg, initial encounter (principal); I10 Essential (primary) hypertension; E11.9 Type 2 diabetes mellitus without complications; I25.2 Old myocardial infarction; E78.5 Hyperlipidemia, unspecified; E78.00 Pure hypercholesterolemia, unspecified; J44.9 Chronic obstructive pulmonary disease, unspecified; E03.9 Hypothyroidism, unspecified; Z86.73 Personal history of transient ischemic attack (TIA), and cerebral infarction without residual deficits; Z87.891 Personal history of nicotine dependence; W01.0XXA Fall on same level from slipping, tripping and stumbling without subsequent striking against object, initial encounter; Y92.481 Parking lot as the place of occurrence of the external cause
CPT/HCPCS: 72170

== ENCOUNTER 2021-09-13 17:41 | Inpatient (IN) | payer MEDICARE ==
[2021-09-13 18:28] LABS: #Basophils 0.1 thou/uL (0.0-0.2); #Eosinphils 0.2 thou/uL (0.0-0.7); #Monocytes 0.4 thou/uL (0.11-0.59); %Basophils 0.7 % (0.0-1.0); %Eosinophils 2.4 % (0.0-10.0); %Lymphocytes 23.1 % (21.0-51.0); %Monocytes 4.9 % (0.0-10.0); %Neutrophils 68.9 % (42.0-75.0); Hemoglobin 13.4 g/dL (12.0-16.0); Mean Corpuscular HGB CONC 32.9 g/dL (32.0-36.0); Mean Corpuscular Hemoglobin 30.3 pg (27.0-31.0); Mean Platelet Volume 6.8 fL (7.4-10.4); Platelet Count 275 thou/uL (130-400); RBC Distribution Width 14.6 % (11.5-14.5); Red Blood Cell (RBC) Count 4.41 mill/uL (4.20-5.40); White Blood Cell (WBC) Count 8.6 thou/uL (4.8-10.8)
[2021-09-13 18:30] LABS: Bilirubin Negative (Negative); Blood, Urine Negative (Negative); Clarity Turbid (Clear); Glucose, Urine (Dipstick) Greater than 1000 mg/dL (Negative); Ketone, Urine Negative (Negative); Leukocyte 75 Leu/uL (Negative); Nitrite Negative (Negative); Protein, Urine (Dipstick) Negative (Neg-Trace); RBC/HPF 0-3 HPF (0-3); Specific Gravity, Urine 1.015 (1.002-1.036); Squamous Epithelial None Seen HPF (0-3); Urobilinogen Normal mg/dL (Less than 2); WBC/HPF 21-50 HPF (0-3)
[2021-09-13 18:36] LABS: Amphetamine Not Detected (NotDetected); Bacteria/HPF 3+ HPF (None Seen); Barbiturates Screen Not Detected (NotDetected); Benzodiazepine Screen Detected (NotDetected); Cocaine Metabolite Screen Not Detected (NotDetected); Methadone Not Detected (NotDetected); Methamphetamine Not Detected (NotDetected); Opiate Screen Not Detected (NotDetected); Oxycodone Screen Not Detected (NotDetected); Phencyclidine (PCP) Not Detected (NotDetected); THC/Cannabinoid Screen Not Detected (NotDetected); Tricyclic Screen Detected (NotDetected)
[2021-09-13 18:48] LABS: Acetaminophen Less than 6.0 mcg/mL (10.0-30.0); Alcohol Less than 10 mg/dL (Less than 10); CK (CPK) 38 U/L (29-168); Salicylate Less than 8.0 mg/dL (15.0-30.0)
[2021-09-13 18:52] LABS: ALT (SGPT) 17 U/L (8-55); AST (SGOT) 22 U/L (5-34); Albumin 4.2 g/dL (3.4-4.8); Alkaline Phosphatase 82 U/L (40-110); Anion Gap 18 mmol/L (10-20); BUN (Urea Nitrogen) 27 mg/dL (9.8-20.1); Bilirubin, Total 0.2 mg/dL (0.2-1.2); Calc. Creatinine Clearance 0 mL/min (70-130); Calcium 10.1 mg/dL (7.8-10.44); Carbon Dioxide 24 mmol/L (23-31); Chloride 101 mmol/L (98-107); Glucose 187 mg/dL (80-115); Lipase 28 U/L (8-78); Potassium 3.7 mmol/L (3.5-5.1); Protein, Total 8.2 g/dL (5.8-8.1); Sodium 139 mmol/L (136-145)
[2021-09-13] MEDS ORDERED: cefTRIAXone\\ROCEPHIN 1 GM VIAL ONE (19:51)
[2021-09-13] MEDS ORDERED: Vancomycin 1 GM/200 ML BAG ONE (20:39)
[2021-09-13 22:06] VITALS: BMI 36.8
[2021-09-13] MEDS: Sodium Chloride 0.9% 1,000 ML IV SCH (23:13)
[2021-09-14] MEDS: Sodium Chloride 0.9% 1,000 ML IV SCH ×2 (07:40→18:11)
[2021-09-14] MEDS ORDERED: cefTRIAXone\\ROCEPHIN 2 GM in Sodium Chloride 0.9% 100 ML IVPB SCH (08:00)
[2021-09-14] MEDS ORDERED: Dextrose 5% in Water 1,000 ML IV PRN (12:30)
[2021-09-14] MEDS ORDERED: Dextrose 50% Abboject 50 ML SYRINGE IVP PRN (12:30)
[2021-09-14] MEDS ORDERED: Vancomycin HCl 750 MG in Sodium Chloride 0.9% 250 ML 250 ML IVPB SCH (12:45)
[2021-09-14 15:28] LABS: SARS-CoV-2 PCR by NAA Not Detected (NotDetected)
[2021-09-14] MEDS: Icosapent Ethyl 1 GM CAPSULE PO SCH (20:13)
[2021-09-14] MEDS: Simvastatin 10 MG TAB PO SCH (20:14)
[2021-09-14] MEDS: busPIRone HCl 5 MG TAB PO SCH (20:15)
[2021-09-14] MEDS: Melatonin 3 MG TAB PO SCH (20:15)
[2021-09-15] MEDS: Sodium Chloride 0.9% 1,000 ML IV SCH ×3 (02:16→19:33)
[2021-09-15] MEDS: Insulin Regular 300 UNITS/3 ML VIAL SC PRN ×2 (05:33→13:02)
[2021-09-15] MEDS: Levothyroxine 150 MCG TAB PO SCH (05:33)
[2021-09-15 06:04] LABS: #Basophils 0.1 thou/uL (0.0-0.2); #Eosinphils 0.3 thou/uL (0.0-0.7); #Lymphocytes 1.8 thou/uL (1.20-3.40); #Monocytes 0.4 thou/uL (0.11-0.59); #Neutrophils 4.6 thou/uL (1.40-6.50); %Basophils 0.8 % (0.0-1.0); %Eosinophils 3.8 % (0.0-10.0); %Lymphocytes 25.8 % (21.0-51.0); %Monocytes 5.5 % (0.0-10.0); %Neutrophils 64.1 % (42.0-75.0); Hemoglobin 12.9 g/dL (12.0-16.0); Mean Corpuscular HGB CONC 32.5 g/dL (32.0-36.0); Mean Corpuscular Hemoglobin 30.1 pg (27.0-31.0); Mean Corpuscular Volume 92.8 fL (78.0-98.0); Mean Platelet Volume 6.9 fL (7.4-10.4); Platelet Count 250 thou/uL (130-400); RBC Distribution Width 14.5 % (11.5-14.5); Red Blood Cell (RBC) Count 4.28 mill/uL (4.20-5.40); White Blood Cell (WBC) Count 7.1 thou/uL (4.8-10.8)
[2021-09-15 06:10] LABS: Hemoglobin A1c 7.5 % (4.0-6.0)
[2021-09-15 06:25] LABS: Anion Gap 11 mmol/L (10-20); BUN (Urea Nitrogen) 12 mg/dL (9.8-20.1); Calc. Creatinine Clearance 111 mL/min (70-130); Calcium 9.5 mg/dL (7.8-10.44); Carbon Dioxide 23 mmol/L (23-31); Cardiac Risk 4.4 (Less than 4.5); Chloride 109 mmol/L (98-107); Cholesterol 175 mg/dl (< 200 Desired); Glucose 137 mg/dL (80-115); HDL Cholesterol 40 mg/dL (>60 Neg Risk); LDL Cholesterol, Calculated 83 mg/dL; Potassium 4.3 mmol/L (3.5-5.1); Sodium 139 mmol/L (136-145); Triglycerides 261 mg/dL (Less than 150); Uric Acid 2.8 mg/dL (2.6-6.0)
[2021-09-15] MEDS: Alogliptin 25 MG TAB PO SCH (10:26)
[2021-09-15] MEDS: busPIRone HCl 5 MG TAB PO SCH ×2 (10:30→19:51)
[2021-09-15] MEDS: Aspirin 81 mg Enteric Coated Tablet PO SCH (10:30)
[2021-09-15] MEDS: Amlodipine 10 MG TAB PO SCH (10:30)
[2021-09-15] MEDS: cefTRIAXone\\ROCEPHIN 1 GM in Sodium Chloride 0.9% 100 ML IVPB SCH (10:31)
[2021-09-15] MEDS: Empagliflozin 25 MG TAB PO SCH (10:32)
[2021-09-15] MEDS: Clopidogrel Bisulfate 75 MG TAB PO SCH (10:32)
[2021-09-15] MEDS: FLUoxetine HCl 20 MG CAP PO SCH (10:32)
[2021-09-15] MEDS: Icosapent Ethyl 1 GM CAPSULE PO SCH ×2 (10:33→19:51)
[2021-09-15] MEDS ORDERED: VANCOMYCIN 1.75 GM/350 ML BAG 1.75 GM in Premix Bag 1 BAG IVPB SCH (13:00)
[2021-09-15] MEDS: Melatonin 3 MG TAB PO SCH (19:52)
[2021-09-15] MEDS: Simvastatin 10 MG TAB PO SCH (19:53)
[2021-09-15] MEDS ORDERED: SUMAtriptan Succinate 50 MG TAB PO SCH (20:30)
[2021-09-15] MEDS ORDERED: SUMAtriptan Succinate 50 MG TAB PO PRN (22:30)
[2021-09-16] MEDS: Levothyroxine 150 MCG TAB PO SCH (05:14)
[2021-09-16] MEDS: Sodium Chloride 0.9% 1,000 ML IV SCH (05:14)
[2021-09-16 08:56] VITALS: TEMP 97.7
[2021-09-16] MEDS: Alogliptin 25 MG TAB PO SCH (08:57)
[2021-09-16] MEDS: Aspirin 81 mg Enteric Coated Tablet PO SCH (08:58)
[2021-09-16] MEDS: Amlodipine 10 MG TAB PO SCH (08:58)
[2021-09-16] MEDS: Clopidogrel Bisulfate 75 MG TAB PO SCH (08:59)
[2021-09-16] MEDS: cefTRIAXone\\ROCEPHIN 1 GM in Sodium Chloride 0.9% 100 ML IVPB SCH (08:59)
[2021-09-16] MEDS: Empagliflozin 25 MG TAB PO SCH (08:59)
[2021-09-16] MEDS: busPIRone HCl 5 MG TAB PO SCH (08:59)
[2021-09-16] MEDS: FLUoxetine HCl 20 MG CAP PO SCH (09:00)
[2021-09-16] MEDS: Icosapent Ethyl 1 GM CAPSULE PO SCH (09:00)
[2021-09-16 10:21] VITALS: BP 135/76
[2021-09-16] MEDS: Insulin Regular 300 UNITS/3 ML VIAL SC PRN ×2 (11:26→17:00)
[2021-09-16 12:47] LABS: Vancomycin, Trough 7.8 ug/mL
[2021-09-16] MEDS ORDERED: VANCOMYCIN 1.25 GM/250 ML BAG 1.25 GM in Premix Bag 1 BAG IVPB SCH (13:00)
[2021-09-16] MEDS ORDERED: Cipro 250 MG TAB PO SCH (20:00)
== END 2021-09-16 18:26 | disposition home or self-care (01) | DRG 690 ==
LOC: ERS 17:41 → MSONC 20:40
PROVIDERS: ADMIT Specialist; ATTEND Specialist
DX: N39.0 Urinary tract infection, site not specified (principal); I69.351 Hemiplegia and hemiparesis following cerebral infarction affecting right dominant side; G45.9 Transient cerebral ischemic attack, unspecified; Z20.822 Contact with and (suspected) exposure to COVID-19; N18.9 Chronic kidney disease, unspecified; E03.9 Hypothyroidism, unspecified; E78.5 Hyperlipidemia, unspecified; E78.00 Pure hypercholesterolemia, unspecified; J44.9 Chronic obstructive pulmonary disease, unspecified; F41.9 Anxiety disorder, unspecified; F32.A Depression, unspecified; R09.02 Hypoxemia; E11.40 Type 2 diabetes mellitus with diabetic neuropathy, unspecified; E11.36 Type 2 diabetes mellitus with diabetic cataract; K21.9 Gastro-esophageal reflux disease without esophagitis; E11.22 Type 2 diabetes mellitus with diabetic chronic kidney disease; G47.00 Insomnia, unspecified; I25.10 Atherosclerotic heart disease of native coronary artery without angina pectoris; Z90.49 Acquired absence of other specified parts of digestive tract; Z90.721 Acquired absence of ovaries, unilateral; Z90.710 Acquired absence of both cervix and uterus; Z87.891 Personal history of nicotine dependence; Z95.5 Presence of coronary angioplasty implant and graft; Z79.899 Other long term (current) drug therapy; Z79.890 Hormone replacement therapy; Z79.82 Long term (current) use of aspirin; I25.2 Old myocardial infarction; Z88.8 Allergy status to other drugs, medicaments and biological substances
CPT/HCPCS: 36415; 36416; 51701; 70450; 70551; 71045; 80048; 80053; 80061; 80202; 80306; 80307; 81003; 81015; 82550; 83036; 83605; 83690; 83735; 83880; 84443; 84484; 84550; 85025; 85379; 87040; 87077; 87086; 87186; 93005; 93306; 93880; 95712; 95819; 95957; 96365; 96367; J0696; J1815; J3370; J3490; J7050; U0003; U0005

== ENCOUNTER 2022-01-15 14:14 | Inpatient (IN) | payer MEDICARE, OTHER ==
[2022-01-15 15:45] LABS: #Eosinphils 0.1 thou/uL (0.0-0.7); #Lymphocytes 0.9 thou/uL (1.20-3.40); #Monocytes 0.2 thou/uL (0.11-0.59); #Neutrophils 2.5 thou/uL (1.40-6.50); %Basophils 0.8 % (0.0-1.0); %Eosinophils 2.2 % (0.0-10.0); %Lymphocytes 24.4 % (21.0-51.0); %Monocytes 4.7 % (0.0-10.0); %Neutrophils 67.9 % (42.0-75.0)
[2022-01-15 16:01] LABS: MDiff Complete? YES
[2022-01-15 16:11] LABS: Calc. Creatinine Clearance 0 mL/min (70-130)
[2022-01-15 16:58] LABS: White Blood Cell (WBC) Count 9.4 thou/uL (4.8-10.8)
[2022-01-15 16:59] LABS: Hemoglobin 13.9 g/dL (12.0-16.0)
[2022-01-15 17:00] LABS: Mean Corpuscular Hemoglobin 30.1 pg (27.0-31.0); Mean Corpuscular Volume 92.1 fL (78.0-98.0)
[2022-01-15 17:03] LABS: Mean Corpuscular HGB CONC 32.7 g/dL (32.0-36.0); Platelet Count 268 thou/uL (130-400); RBC Distribution Width 14.6 % (11.5-14.5)
[2022-01-15 17:04] LABS: Mean Platelet Volume 6.6 fL (7.4-10.4)
[2022-01-15 17:05] LABS: Platelet Morphology Comment Appears Adequate
[2022-01-15 17:33] LABS: Calcium 9.2 mg/dL (7.8-10.44); Chloride 100 mmol/L (98-107); Potassium 4.1 mmol/L (3.5-5.1)
[2022-01-15 17:37] LABS: Sodium 138 mmol/L (136-145)
[2022-01-15 17:38] LABS: Anion Gap 16 mmol/L (10-20); BUN (Urea Nitrogen) 27 mg/dL (9.8-20.1); Carbon Dioxide 26 mmol/L (23-31)
[2022-01-15 17:40] LABS: Bilirubin, Total 0.3 mg/dL (0.2-1.2); Glucose 177 mg/dL (80-115); Protein, Total 8.1 g/dL (5.8-8.1)
[2022-01-15 17:41] LABS: Albumin 4.4 g/dL (3.4-4.8); Globulin 3.7 g/dL (2.4-3.5)
[2022-01-15 17:42] LABS: ALT (SGPT) 27 U/L (8-55); AST (SGOT) 39 U/L (5-34); Alkaline Phosphatase 77 U/L (40-110); Lipase 22 U/L (8-78)
[2022-01-15] MEDS ORDERED: HYDROcodone/Acetaminophen 5/325 mg Tablet PO PRN (17:46)
[2022-01-15] MEDS ORDERED: Acetaminophen 325 MG TAB PO PRN (17:46)
[2022-01-15] MEDS ORDERED: Cyclobenzaprine 10 MG TAB PO PRN (17:50)
[2022-01-15] MEDS ORDERED: ALPRAZolam 0.5 MG TAB PO PRN (17:50)
[2022-01-15] MEDS ORDERED: Nitroglycerin 0.4 MG TAB (25 Tab Bottle) SL PRN (17:50)
[2022-01-15] MEDS ORDERED: Nicotine 14 MG PATCH TD SCH (18:00)
[2022-01-15 18:49] LABS: Hemoglobin 13.9 g/dL (12.0-16.0)
[2022-01-15 20:39] VITALS: BMI 37.8
[2022-01-15] MEDS: busPIRone HCl 10 MG TAB PO SCH (20:39)
[2022-01-15] MEDS: Ascorbic Acid 500 mg Chewable Tablet PO SCH (20:39)
[2022-01-15] MEDS: Fish Oil 1,000 MG CAP PO SCH (20:39)
[2022-01-15] MEDS ORDERED: Melatonin 3 MG TAB PO SCH (21:00)
[2022-01-15] MEDS ORDERED: Simvastatin 10 MG TAB PO SCH (21:00)
[2022-01-16 04:58] LABS: #Eosinphils 0.2 thou/uL (0.0-0.7); #Lymphocytes 2.1 thou/uL (1.20-3.40); #Monocytes 0.4 thou/uL (0.11-0.59); #Neutrophils 6.6 thou/uL (1.40-6.50); %Basophils 0.5 % (0.0-1.0); %Eosinophils 1.8 % (0.0-10.0); %Lymphocytes 22.1 % (21.0-51.0); %Monocytes 4.6 % (0.0-10.0); Hemoglobin 13.5 g/dL (12.0-16.0); Mean Corpuscular Hemoglobin 30.6 pg (27.0-31.0); Mean Corpuscular Volume 92.8 fL (78.0-98.0); Mean Platelet Volume 6.7 fL (7.4-10.4); Platelet Count 252 thou/uL (130-400); RBC Distribution Width 14.5 % (11.5-14.5); White Blood Cell (WBC) Count 9.3 thou/uL (4.8-10.8)
[2022-01-16 05:24] LABS: Anion Gap 16 mmol/L (10-20); BUN (Urea Nitrogen) 23 mg/dL (9.8-20.1); Calc. Creatinine Clearance 81 mL/min (70-130); Calcium 9.1 mg/dL (7.8-10.44); Carbon Dioxide 23 mmol/L (23-31); Chloride 103 mmol/L (98-107); Glucose 187 mg/dL (80-115); Potassium 4.1 mmol/L (3.5-5.1); Sodium 138 mmol/L (136-145)
[2022-01-16] MEDS ORDERED: Levothyroxine 150 MCG TAB PO SCH (06:00)
[2022-01-16 07:58] VITALS: TEMP 97.6
[2022-01-16] MEDS ORDERED: Potassium Citrate 10 MEQ TAB PO SCH (08:00)
[2022-01-16] MEDS ORDERED: Icosapent Ethyl 1 GM CAPSULE PO SCH (08:00)
[2022-01-16] MEDS ORDERED: Amlodipine 10 MG TAB PO SCH (09:00)
[2022-01-16] MEDS ORDERED: BREXPIPRAZOLE 0.5 MG PO SCH (09:00)
[2022-01-16] MEDS ORDERED: Multivit, Therapeutic 1 TAB PO SCH (09:00)
[2022-01-16] MEDS ORDERED: Cetirizine HCl 10 MG TAB PO SCH (09:00)
[2022-01-16] MEDS ORDERED: FLUoxetine HCl 20 MG CAP PO SCH (09:00)
[2022-01-16] MEDS ORDERED: Loratadine 10 MG TAB PO SCH (09:00)
[2022-01-16] MEDS ORDERED: Oxybutynin 5 MG TAB PO SCH (09:00)
[2022-01-16] MEDS ORDERED: Allopurinol 300 MG TAB PO SCH (09:00)
[2022-01-16 09:30] LABS: Troponin I Less than 0.010 ng/mL (< 0.028)
[2022-01-16] MEDS ORDERED: Empagliflozin 25 MG TAB PO SCH (11:15)
[2022-01-16] MEDS ORDERED: Alogliptin 25 MG TAB PO SCH ×2 (11:15)
[2022-01-16] MEDS: busPIRone HCl 10 MG TAB PO SCH (12:05)
[2022-01-16] MEDS: Fish Oil 1,000 MG CAP PO SCH (12:06)
[2022-01-16] MEDS: Ascorbic Acid 500 mg Chewable Tablet PO SCH (12:06)
[2022-01-16 12:21] VITALS: BP 147/70
[2022-01-17] MEDS ORDERED: Empagliflozin 25 MG TAB PO SCH (09:00)
[2022-01-17] MEDS ORDERED: Alogliptin 25 MG TAB PO SCH ×2 (09:00)
== END 2022-01-16 15:50 | disposition home or self-care (01) | DRG 313 ==
LOC: ERS 14:14 → 2NO 17:04
PROVIDERS: ADMIT Internal Medicine; ATTEND Internal Medicine
DX: R07.9 Chest pain, unspecified (principal); Z20.822 Contact with and (suspected) exposure to COVID-19; E78.00 Pure hypercholesterolemia, unspecified; E78.5 Hyperlipidemia, unspecified; E03.9 Hypothyroidism, unspecified; J44.9 Chronic obstructive pulmonary disease, unspecified; F41.9 Anxiety disorder, unspecified; F32.A Depression, unspecified; I12.9 Hypertensive chronic kidney disease with stage 1 through stage 4 chronic kidney disease, or unspecified chronic kidney disease; N18.9 Chronic kidney disease, unspecified; I25.10 Atherosclerotic heart disease of native coronary artery without angina pectoris; Z86.73 Personal history of transient ischemic attack (TIA), and cerebral infarction without residual deficits; Z90.710 Acquired absence of both cervix and uterus; I25.2 Old myocardial infarction; D64.9 Anemia, unspecified
CPT/HCPCS: 36415; 36416; 70450; 71045; 74176; 78452; 80048; 80053; 82274; 83605; 83690; 84484; 85025; 86850; 86900; 86901; 93005; 93017; 94760; 96360; A9500; U0003; U0005

== ENCOUNTER 2022-02-12 16:12 | Observation (INO) | payer MEDICARE, OTHER ==
[~2022-02-12 16:12] MED LIST changes: +ISOVUE-370 76%-LOCM 1 ML ONE; -Iopamidol-370 76% 500 ML 1 ML ONE
[2022-02-12 17:07] LABS: #Basophils 0.1 thou/uL (0.0-0.2); #Eosinphils 0.2 thou/uL (0.0-0.7); #Lymphocytes 2.1 thou/uL (1.20-3.40); #Monocytes 0.5 thou/uL (0.11-0.59); #Neutrophils 5.5 thou/uL (1.40-6.50); %Basophils 0.9 % (0.0-1.0); %Monocytes 5.4 % (0.0-10.0); %Neutrophils 65.8 % (42.0-75.0); Hemoglobin 13.5 g/dL (12.0-16.0); Mean Corpuscular HGB CONC 32.7 g/dL (32.0-36.0); Mean Corpuscular Hemoglobin 30.6 pg (27.0-31.0); Mean Corpuscular Volume 93.3 fL (78.0-98.0); Mean Platelet Volume 6.9 fL (7.4-10.4); Platelet Count 263 thou/uL (130-400); RBC Distribution Width 14.5 % (11.5-14.5); Red Blood Cell (RBC) Count 4.41 mill/uL (4.20-5.40); White Blood Cell (WBC) Count 8.3 thou/uL (4.8-10.8)
[2022-02-12 17:29] LABS: ALT (SGPT) 24 U/L (8-55); AST (SGOT) 28 U/L (5-34); Albumin 4.8 g/dL (3.4-4.8); Alkaline Phosphatase 88 U/L (40-110); Anion Gap 18 mmol/L (10-20); BUN (Urea Nitrogen) 22 mg/dL (9.8-20.1); Bilirubin, Total 0.3 mg/dL (0.2-1.2); Calc. Creatinine Clearance 0 mL/min (70-130); Carbon Dioxide 25 mmol/L (23-31); Chloride 101 mmol/L (98-107); Estimated GFR 50; Globulin 3.4 g/dL (2.4-3.5); Glucose 157 mg/dL (80-115); Lipase 12 U/L (8-78); Potassium 4.5 mmol/L (3.5-5.1); Protein, Total 8.2 g/dL (5.8-8.1); Sodium 139 mmol/L (136-145)
[2022-02-12] MEDS ORDERED: Furosemide 40 MG/4 ML VIAL ONE (18:47)
[2022-02-12] MEDS ORDERED: Aspirin Chewable 81 MG TAB ONE (18:47)
[2022-02-12 20:14] LABS: SARS-CoV-2 NAA Rapid Test Not Detected (NotDetected)
[2022-02-12 21:22] VITALS: BMI 38.7
[2022-02-12] MEDS ORDERED: ALPRAZolam 0.5 MG TAB PO PRN (23:23)
[2022-02-12] MEDS ORDERED: Cyclobenzaprine 10 MG TAB PO PRN (23:24)
[2022-02-12] MEDS ORDERED: Ascorbic Acid 500 mg Chewable Tablet PO SCH (23:30)
[2022-02-12] MEDS ORDERED: Fish Oil 1,000 MG CAP PO ONE (23:30)
[2022-02-12] MEDS ORDERED: Melatonin 3 MG TAB PO ONE (23:30)
[2022-02-12] MEDS ORDERED: busPIRone HCl 10 MG TAB PO SCH (23:30)
[2022-02-12] MEDS ORDERED: Melatonin 3 MG TAB PO SCH (23:30)
[2022-02-12] MEDS ORDERED: busPIRone HCl 10 MG TAB PO ONE (23:30)
[2022-02-12] MEDS ORDERED: Carvedilol 6.25 MG TAB PO ONE (23:30)
[2022-02-12] MEDS ORDERED: Fish Oil 1,000 MG CAP PO SCH (23:30)
[2022-02-12] MEDS ORDERED: Carvedilol 6.25 MG TAB PO SCH (23:30)
[2022-02-12] MEDS ORDERED: Atorvastatin Calcium 10 MG TAB PO SCH (23:45)
[2022-02-13] MEDS ORDERED: Nitroglycerin 0.4 MG TAB (25 Tab Bottle) SL PRN (08:06)
[2022-02-13] MEDS ORDERED: BYDUREON SC SCH (08:15)
[2022-02-13] MEDS ORDERED: Levothyroxine Sodium 100 MCG TAB PO SCH (08:45)
[2022-02-13] MEDS ORDERED: Fish Oil 1,000 MG CAP PO SCH (09:00)
[2022-02-13] MEDS ORDERED: REXULTI PO SCH (09:00)
[2022-02-13] MEDS: Febuxostat 40 MG TAB PO SCH (09:48)
[2022-02-13] MEDS: Empagliflozin 25 MG TAB PO SCH (09:48)
[2022-02-13] MEDS: Aspirin 81 mg Enteric Coated Tablet PO SCH (09:48)
[2022-02-13] MEDS: Carvedilol 6.25 MG TAB PO SCH ×2 (09:49→20:24)
[2022-02-13] MEDS: Alogliptin 25 MG TAB PO SCH (09:49)
[2022-02-13] MEDS: Ascorbic Acid 500 mg Chewable Tablet PO SCH ×2 (09:49→20:25)
[2022-02-13] MEDS: Icosapent Ethyl 1 GM CAPSULE PO SCH ×2 (09:49→16:42)
[2022-02-13] MEDS: Lisinopril 20 MG TAB PO SCH (09:49)
[2022-02-13] MEDS: Furosemide 40 MG TAB PO SCH (09:50)
[2022-02-13] MEDS: Potassium Chloride 10 MEQ TAB PO SCH ×2 (09:50→16:42)
[2022-02-13] MEDS: Multivitamin W/ Minerals 1 TAB PO SCH (09:50)
[2022-02-13] MEDS: FLUoxetine HCl 20 MG CAP PO SCH (09:50)
[2022-02-13] MEDS: Amlodipine 10 MG TAB PO SCH (09:50)
[2022-02-13] MEDS: Clopidogrel Bisulfate 75 MG TAB PO SCH (09:50)
[2022-02-13] MEDS: busPIRone HCl 10 MG TAB PO SCH ×2 (09:51→20:25)
[2022-02-13] MEDS ORDERED: Dextrose 5% in Water 1,000 ML IV PRN (11:30)
[2022-02-13] MEDS ORDERED: Dextrose 50% Abboject 50 ML SYRINGE IVP PRN (11:30)
[2022-02-13] MEDS: Melatonin 3 MG TAB PO SCH (20:25)
[2022-02-13] MEDS ORDERED: Atorvastatin Calcium 10 MG TAB PO SCH ×4 (21:00)
[2022-02-14] MEDS ORDERED: Levothyroxine Sodium 100 MCG TAB PO SCH (06:00)
[2022-02-14] MEDS: Febuxostat 40 MG TAB PO SCH (09:10)
[2022-02-14] MEDS: Carvedilol 6.25 MG TAB PO SCH ×2 (09:10→20:12)
[2022-02-14] MEDS: Amlodipine 10 MG TAB PO SCH (09:10)
[2022-02-14] MEDS: Multivitamin W/ Minerals 1 TAB PO SCH (09:11)
[2022-02-14] MEDS: Furosemide 40 MG TAB PO SCH (09:11)
[2022-02-14] MEDS: busPIRone HCl 10 MG TAB PO SCH ×2 (09:11→20:09)
[2022-02-14] MEDS: Lisinopril 20 MG TAB PO SCH (09:11)
[2022-02-14] MEDS: Alogliptin 25 MG TAB PO SCH (09:12)
[2022-02-14] MEDS: Icosapent Ethyl 1 GM CAPSULE PO SCH ×2 (09:12→17:39)
[2022-02-14] MEDS: FLUoxetine HCl 20 MG CAP PO SCH (09:12)
[2022-02-14] MEDS: Clopidogrel Bisulfate 75 MG TAB PO SCH (09:12)
[2022-02-14] MEDS: Potassium Chloride 10 MEQ TAB PO SCH ×2 (09:13→17:39)
[2022-02-14] MEDS: Ascorbic Acid 500 mg Chewable Tablet PO SCH ×2 (09:13→20:08)
[2022-02-14] MEDS: Aspirin 81 mg Enteric Coated Tablet PO SCH (09:14)
[2022-02-14] MEDS: Empagliflozin 25 MG TAB PO SCH (09:16)
[2022-02-14] MEDS: Insulin Regular 300 UNITS/3 ML VIAL SC PRN ×2 (12:51→17:39)
[2022-02-14] MEDS: Melatonin 3 MG TAB PO SCH (20:09)
[2022-02-14] MEDS ORDERED: Atorvastatin Calcium 10 MG TAB PO SCH (21:00)
[2022-02-15] MEDS ORDERED: Levothyroxine Sodium 75 MCG TAB PO SCH (06:00)
[2022-02-15] MEDS: Lisinopril 20 MG TAB PO SCH (09:40)
[2022-02-15] MEDS: Furosemide 40 MG TAB PO SCH (09:40)
[2022-02-15] MEDS: Potassium Chloride 10 MEQ TAB PO SCH ×2 (09:40→16:38)
[2022-02-15] MEDS: Carvedilol 6.25 MG TAB PO SCH (09:40)
[2022-02-15] MEDS: Amlodipine 10 MG TAB PO SCH (09:40)
[2022-02-15] MEDS: Alogliptin 25 MG TAB PO SCH (09:40)
[2022-02-15] MEDS: Clopidogrel Bisulfate 75 MG TAB PO SCH (09:41)
[2022-02-15] MEDS: busPIRone HCl 10 MG TAB PO SCH (09:41)
[2022-02-15] MEDS: Aspirin 81 mg Enteric Coated Tablet PO SCH (09:41)
[2022-02-15] MEDS: Ascorbic Acid 500 mg Chewable Tablet PO SCH (09:41)
[2022-02-15] MEDS: Empagliflozin 25 MG TAB PO SCH (09:41)
[2022-02-15] MEDS: FLUoxetine HCl 20 MG CAP PO SCH (09:42)
[2022-02-15] MEDS: Multivitamin W/ Minerals 1 TAB PO SCH (09:42)
[2022-02-15] MEDS: Febuxostat 40 MG TAB PO SCH (09:42)
[2022-02-15] MEDS: Insulin Regular 300 UNITS/3 ML VIAL SC PRN (12:20)
[2022-02-15] MEDS: Icosapent Ethyl 1 GM CAPSULE PO SCH ×2 (12:20→16:32)
[2022-02-15 17:12] VITALS: BP 126/70; TEMP 97.7
[2022-02-15] MEDS ORDERED: Atorvastatin Calcium 40 MG TAB PO SCH ×2 (21:00)
== END 2022-02-15 18:45 | disposition home or self-care (01) ==
LOC: ERS 16:12 → 2SW 18:38
PROVIDERS: ADMIT Specialist; ATTEND Specialist
DX: R07.89 Other chest pain (principal); J44.9 Chronic obstructive pulmonary disease, unspecified; R09.89 Other specified symptoms and signs involving the circulatory and respiratory systems; F17.210 Nicotine dependence, cigarettes, uncomplicated; E03.9 Hypothyroidism, unspecified; I10 Essential (primary) hypertension; E11.9 Type 2 diabetes mellitus without complications; I25.10 Atherosclerotic heart disease of native coronary artery without angina pectoris; N32.81 Overactive bladder; F51.04 Psychophysiologic insomnia; I70.0 Atherosclerosis of aorta; I08.1 Rheumatic disorders of both mitral and tricuspid valves; E78.5 Hyperlipidemia, unspecified; Z79.02 Long term (current) use of antithrombotics/antiplatelets; Z79.82 Long term (current) use of aspirin; Z79.84 Long term (current) use of oral hypoglycemic drugs; Z79.890 Hormone replacement therapy; Z79.899 Other long term (current) drug therapy; Z91.018 Allergy to other foods; Z95.5 Presence of coronary angioplasty implant and graft; Z20.822 Contact with and (suspected) exposure to COVID-19
CPT/HCPCS: 71045; 71046; 71275; 80053; 82962 ×4; 83690; 83880; 84443; 84484; 85025; 87040; 93005; 93306; 94760; 96374; 99285; U0002; 36415; 36416; G0378; J1815; J1940; J7620; Q9966

== ENCOUNTER 2022-06-08 13:58 | Emergency (ER) | payer MEDICARE, OTHER ==
[2022-06-08 16:19] LABS: #Eosinphils 0.2 thou/uL (0.0-0.7); #Monocytes 0.4 thou/uL (0.11-0.59); #Neutrophils 5.1 thou/uL (1.40-6.50); %Basophils 0.6 % (0.0-1.0); %Eosinophils 2.9 % (0.0-10.0); %Lymphocytes 25.5 % (21.0-51.0); %Monocytes 5.4 % (0.0-10.0); %Neutrophils 65.7 % (42.0-75.0); Hemoglobin 13.1 g/dL (12.0-16.0); Mean Corpuscular HGB CONC 33.1 g/dL (32.0-36.0); Mean Corpuscular Hemoglobin 31.5 pg (27.0-31.0); Platelet Count 210 thou/uL (130-400); RBC Distribution Width 12.7 % (11.5-14.5); Red Blood Cell (RBC) Count 4.18 mill/uL (4.20-5.40); White Blood Cell (WBC) Count 7.7 thou/uL (4.8-10.8)
[2022-06-08 16:36] LABS: ALT (SGPT) 37 U/L (8-55); AST (SGOT) 47 U/L (5-34); Albumin 4.3 g/dL (3.4-4.8); Alkaline Phosphatase 91 U/L (40-110); Anion Gap 17 mmol/L (10-20); BUN (Urea Nitrogen) 28 mg/dL (9.8-20.1); Bilirubin, Total 0.3 mg/dL (0.2-1.2); Calc. Creatinine Clearance 0 mL/min (70-130); Calcium 9.8 mg/dL (7.8-10.44); Carbon Dioxide 25 mmol/L (23-31); Chloride 100 mmol/L (98-107); Estimated GFR 38; Globulin 3.4 g/dL (2.4-3.5); Glucose 306 mg/dL (80-115); Lipase 40 U/L (8-78); Potassium 4.3 mmol/L (3.5-5.1); Protein, Total 7.7 g/dL (5.8-8.1); Sodium 138 mmol/L (136-145)
== END 2022-06-08 17:19 | disposition home or self-care (01) ==
LOC: ERS 13:58
DX: R07.89 Other chest pain (principal); E11.9 Type 2 diabetes mellitus without complications; I10 Essential (primary) hypertension; E78.00 Pure hypercholesterolemia, unspecified; E03.9 Hypothyroidism, unspecified; F17.200 Nicotine dependence, unspecified, uncomplicated
CPT/HCPCS: 36415; 71045; 80053; 83690; 84484; 85025; 93005

== ENCOUNTER 2022-08-12 18:00 | Emergency (ER) | payer MEDICARE ==
[2022-08-12 18:24] LABS: #Eosinphils 0.2 thou/uL (0.0-0.7); #Lymphocytes 2.3 thou/uL (1.20-3.40); #Monocytes 0.5 thou/uL (0.11-0.59); #Neutrophils 5.2 thou/uL (1.40-6.50); %Basophils 0.4 % (0.0-1.0); %Eosinophils 2.7 % (0.0-10.0); %Lymphocytes 28.5 % (21.0-51.0); %Monocytes 5.6 % (0.0-10.0); %Neutrophils 62.9 % (42.0-75.0); Hemoglobin 12.9 g/dL (12.0-16.0); Mean Corpuscular HGB CONC 34.3 g/dL (32.0-36.0); Mean Corpuscular Hemoglobin 31.1 pg (27.0-31.0); Mean Corpuscular Volume 90.5 fl (78.0-98.0); Mean Platelet Volume 6.9 fL (7.4-10.4); Platelet Count 225 10x3/uL (130-400); RBC Distribution Width 12.1 % (11.5-14.5); Red Blood Cell (RBC) Count 4.14 mill/uL (4.20-5.40); White Blood Cell (WBC) Count 8.2 10x3/uL (4.8-10.8)
[2022-08-12] MEDS ORDERED: Dexamethasone 10 MG/ML VIAL ONE (18:31)
[2022-08-12] MEDS ORDERED: Magnesium 2 GM/50 ML BAG (IN WATER) ONE (18:31)
[2022-08-12] MEDS ORDERED: Ketorolac Tromethamine 30 MG/ML VIAL ONE ×3 (18:31→18:45)
[2022-08-12 18:46] LABS: ALT (SGPT) 18 U/L (8-55); AST (SGOT) 27 U/L (5-34); Albumin 4.1 g/dL (3.4-4.8); Alkaline Phosphatase 69 U/L (40-110); Anion Gap 12 mmol/L (10-20); BUN (Urea Nitrogen) 20 mg/dL (9.8-20.1); Bilirubin, Total 0.3 mg/dL (0.2-1.2); CK (CPK) 57 U/L (29-168); Calc. Creatinine Clearance 0 mL/min (70-130); Calcium 10.9 mg/dL (7.8-10.44); Carbon Dioxide 30 mmol/L (23-31); Chloride 98 mmol/L (98-107); Estimated GFR 69; Globulin 3.5 g/dL (2.4-3.5); Glucose 284 mg/dL (80-115); Lipase 14 U/L (8-78); Potassium 4.2 mmol/L (3.5-5.1); Protein, Total 7.6 g/dL (5.8-8.1); Sodium 136 mmol/L (136-145)
== END 2022-08-12 20:12 | disposition home or self-care (01) ==
LOC: ERS 18:00
DX: J44.9 Chronic obstructive pulmonary disease, unspecified (principal); R07.89 Other chest pain; I10 Essential (primary) hypertension; I25.2 Old myocardial infarction; E03.9 Hypothyroidism, unspecified; E78.00 Pure hypercholesterolemia, unspecified; E11.40 Type 2 diabetes mellitus with diabetic neuropathy, unspecified; F17.290 Nicotine dependence, other tobacco product, uncomplicated; Z86.73 Personal history of transient ischemic attack (TIA), and cerebral infarction without residual deficits; Z95.5 Presence of coronary angioplasty implant and graft
CPT/HCPCS: 36415; 71045; 80053; 82550; 83690; 83880; 84484; 85025; 93005; 96365; 96375; J1100; J1885; J3475

== ENCOUNTER 2022-09-28 11:22 | Inpatient (IN) | payer MEDICARE, OTHER ==
[2022-09-28 12:26] LABS: #Eosinphils 0.2 thou/uL (0.0-0.7); #Lymphocytes 1.5 thou/uL (1.20-3.40); #Monocytes 0.5 thou/uL (0.11-0.59); #Neutrophils 4.7 thou/uL (1.40-6.50); %Basophils 0.6 % (0.0-1.0); %Eosinophils 2.6 % (0.0-10.0); %Lymphocytes 22.2 % (21.0-51.0); %Monocytes 6.8 % (0.0-10.0); %Neutrophils 67.8 % (42.0-75.0); Mean Corpuscular HGB CONC 34.3 g/dL (32.0-36.0); Mean Corpuscular Hemoglobin 31.3 pg (27.0-31.0); Mean Platelet Volume 7.9 fL (7.4-10.4); Platelet Count 194 10x3/uL (130-400); RBC Distribution Width 12.5 % (11.5-14.5); Red Blood Cell (RBC) Count 4.16 mill/uL (4.20-5.40); White Blood Cell (WBC) Count 6.9 10x3/uL (4.8-10.8)
[2022-09-28 12:51] LABS: Actual Bicarbonate (HCO3v) 26 mEq/L (22-28); Base Excess 1.9 mEq/L (-2.0 to +3.0); Chloride (VBG) 96 mmol/L (98-106); Hemoglobin (Hb) 14.1 g/dL (11.7-16.1); Potassium (VBG) 5.51 mmol/L (3.70-5.30); Sodium 132.9 mmol/L (133-146); pH (venous) 7.43 (7.32-7.43)
[2022-09-28 12:54] LABS: ALT (SGPT) 35 U/L (8-55); AST (SGOT) 49 U/L (5-34); Albumin 3.9 g/dL (3.4-4.8); Alkaline Phosphatase 95 U/L (40-110); Anion Gap 17 mmol/L (10-20); BUN (Urea Nitrogen) 14 mg/dL (9.8-20.1); Bilirubin, Total 0.3 mg/dL (0.2-1.2); CK (CPK) 49 U/L (29-168); Calc. Creatinine Clearance 0 mL/min (70-130); Calcium 9.1 mg/dL (7.8-10.44); Carbon Dioxide 23 mmol/L (23-31); Chloride 98 mmol/L (98-107); Estimated GFR 48; Globulin 2.9 g/dL (2.4-3.5); Potassium 4.8 mmol/L (3.5-5.1); Protein, Total 6.8 g/dL (5.8-8.1); Sodium 133 mmol/L (136-145)
[2022-09-28 13:18] LABS: Glucose 577 mg/dL (80-115)
[2022-09-28 13:40] LABS: Bilirubin Negative (Negative); Blood, Urine Negative (Negative); Clarity Clear (Clear); Glucose, Urine (Dipstick) >=1000 mg/dL (Negative); Ketone, Urine Negative (Negative); Leukocyte Negative Leu/uL (Negative); Nitrite Negative (Negative); Protein, Urine (Dipstick) Negative (Neg-Trace); Specific Gravity, Urine 1.029 (1.002-1.036); Urobilinogen Normal mg/dL (Less than 2); pH, Urine 6.5 (5.0-9.0)
[2022-09-28] MEDS ORDERED: Insulin Regular 300 UNITS/3 ML VIAL ONE (15:13)
[2022-09-28] MEDS ORDERED: Dextrose 5% in Water 1,000 ML IV PRN (18:09)
[2022-09-28] MEDS ORDERED: Dextrose 50% Abboject 50 ML SYRINGE SLOW IVP PRN (18:09)
[2022-09-28] MEDS ORDERED: Zolpidem Tartrate 5 MG TAB PO PRN (18:15)
[2022-09-28] MEDS ORDERED: Ondansetron PF 4 MG/2 ML Vial IVP PRN (18:15)
[2022-09-28] MEDS ORDERED: Ipratropium/Albuterol 3 ML NEB EZPAP PRN (18:19)
[2022-09-28 19:56] VITALS: BMI 40.4
[2022-09-28] MEDS ORDERED: Insulin Glargine 30 UNITS/0.3 ML VIAL SC SCH (21:00)
[2022-09-28] MEDS: Acetaminophen 325 MG TAB PO PRN (21:15)
[2022-09-28] MEDS: Sodium Chloride 0.9% 1,000 ML IV SCH (21:15)
[2022-09-28] MEDS: QUEtiapine 100 MG TAB PO SCH (21:16)
[2022-09-28] MEDS: Famotidine 20 MG TAB PO SCH (21:16)
[2022-09-28] MEDS: busPIRone HCl 10 MG TAB PO SCH (21:16)
[2022-09-28] MEDS: Rosuvastatin 20 MG TAB PO SCH (21:16)
[2022-09-28] MEDS: HumaLOG 300 UNITS/3 ML VIAL SC PRN (21:17)
[2022-09-29] MEDS: Acetaminophen 325 MG TAB PO PRN ×2 (01:04→20:38)
[2022-09-29] MEDS: Sodium Chloride 0.9% 1,000 ML IV SCH ×2 (05:04→15:50)
[2022-09-29] MEDS: Levothyroxine 175 MCG TAB PO SCH (05:04)
[2022-09-29] MEDS: HumaLOG 300 UNITS/3 ML VIAL SC PRN ×4 (05:07→20:39)
[2022-09-29 06:09] LABS: #Eosinphils 0.2 thou/uL (0.0-0.7); #Monocytes 0.3 thou/uL (0.11-0.59); #Neutrophils 3.5 thou/uL (1.40-6.50); %Basophils 0.4 % (0.0-1.0); %Eosinophils 3.2 % (0.0-10.0); %Lymphocytes 33.7 % (21.0-51.0); %Monocytes 5.1 % (0.0-10.0); %Neutrophils 57.6 % (42.0-75.0); Hemoglobin 12.7 g/dL (12.0-16.0); Mean Corpuscular HGB CONC 33.5 g/dL (32.0-36.0); Mean Corpuscular Hemoglobin 30.7 pg (27.0-31.0); Mean Corpuscular Volume 91.7 fl (78.0-98.0); Mean Platelet Volume 7.4 fL (7.4-10.4); Platelet Count 186 10x3/uL (130-400); RBC Distribution Width 12.5 % (11.5-14.5); Red Blood Cell (RBC) Count 4.14 mill/uL (4.20-5.40)
[2022-09-29 06:28] LABS: Hemoglobin A1c 13.1 % (4.0-6.0)
[2022-09-29 06:35] LABS: Anion Gap 12 mmol/L (10-20); BUN (Urea Nitrogen) 9 mg/dL (9.8-20.1); Calc. Creatinine Clearance 111 mL/min (70-130); Calcium 8.9 mg/dL (7.8-10.44); Carbon Dioxide 21 mmol/L (23-31); Cardiac Risk 2.6 (Less than 4.5); Chloride 106 mmol/L (98-107); Cholesterol 98 mg/dl (< 200 Desired); Estimated GFR 82; Glucose 223 mg/dL (80-115); HDL Cholesterol 37 mg/dL (>60 Neg Risk); LDL Cholesterol, Calculated 16 mg/dL; Sodium 135 mmol/L (136-145); Triglycerides 223 mg/dL (Less than 150)
[2022-09-29] MEDS: Carvedilol 6.25 MG TAB PO SCH ×2 (08:52→17:50)
[2022-09-29] MEDS: Amlodipine 10 MG TAB PO SCH (08:53)
[2022-09-29] MEDS: FLUoxetine HCl 20 MG CAP PO SCH (08:55)
[2022-09-29] MEDS: Famotidine 20 MG TAB PO SCH ×2 (08:55→20:38)
[2022-09-29] MEDS ORDERED: Insulin Glargine 30 UNITS/0.3 ML VIAL SC SCH ×2 (09:00→21:00)
[2022-09-29] MEDS: busPIRone HCl 10 MG TAB PO SCH ×2 (09:43→20:38)
[2022-09-29] MEDS: Rosuvastatin 20 MG TAB PO SCH (20:38)
[2022-09-29] MEDS: QUEtiapine 100 MG TAB PO SCH (20:38)
[2022-09-30] MEDS: Sodium Chloride 0.9% 1,000 ML IV SCH ×3 (00:08→15:19)
[2022-09-30] MEDS: Levothyroxine 175 MCG TAB PO SCH (05:36)
[2022-09-30] MEDS: HumaLOG 300 UNITS/3 ML VIAL SC PRN ×4 (05:36→20:56)
[2022-09-30] MEDS: FLUoxetine HCl 20 MG CAP PO SCH (08:50)
[2022-09-30] MEDS: Amlodipine 10 MG TAB PO SCH (08:50)
[2022-09-30] MEDS: Fluconazole 100 MG TAB PO SCH (08:50)
[2022-09-30] MEDS: Famotidine 20 MG TAB PO SCH ×2 (08:50→20:56)
[2022-09-30] MEDS: Carvedilol 6.25 MG TAB PO SCH ×2 (08:50→17:05)
[2022-09-30] MEDS: Insulin Glargine 30 UNITS/0.3 ML VIAL SC SCH (08:51)
[2022-09-30] MEDS: busPIRone HCl 10 MG TAB PO SCH ×2 (08:53→20:56)
[2022-09-30 09:11] LABS: Chloride 106 mmol/L (98-107); Potassium 4.1 mmol/L (3.5-5.1); Sodium 136 mmol/L (136-145)
[2022-09-30 09:12] LABS: Calcium 9.1 mg/dL (7.8-10.44); Glucose 196 mg/dL (80-115)
[2022-09-30 09:13] LABS: Anion Gap 12 mmol/L (10-20); Carbon Dioxide 22 mmol/L (23-31)
[2022-09-30 09:15] LABS: Calc. Creatinine Clearance 123 mL/min (70-130); Estimated GFR 94
[2022-09-30 09:16] LABS: BUN (Urea Nitrogen) 8 mg/dL (9.8-20.1)
[2022-09-30] MEDS ORDERED: Dicyclomine 20 MG TAB PO PRN (13:16)
[2022-09-30] MEDS: QUEtiapine 100 MG TAB PO SCH (20:56)
[2022-09-30] MEDS: Rosuvastatin 20 MG TAB PO SCH (20:56)
[2022-09-30] MEDS ORDERED: Insulin Glargine 30 UNITS/0.3 ML VIAL SC SCH (21:00)
[2022-10-01] MEDS: Sodium Chloride 0.9% 1,000 ML IV SCH (01:31)
[2022-10-01 05:26] LABS: #Eosinphils 0.2 thou/uL (0.0-0.7); #Lymphocytes 1.9 thou/uL (1.20-3.40); #Monocytes 0.4 thou/uL (0.11-0.59); %Basophils 0.2 % (0.0-1.0); %Eosinophils 2.7 % (0.0-10.0); %Lymphocytes 25.1 % (21.0-51.0); %Monocytes 5.8 % (0.0-10.0); %Neutrophils 66.1 % (42.0-75.0); Hemoglobin 12.9 g/dL (12.0-16.0); Mean Corpuscular HGB CONC 33.1 g/dL (32.0-36.0); Mean Corpuscular Hemoglobin 30.2 pg (27.0-31.0); Mean Corpuscular Volume 91.2 fl (78.0-98.0); Mean Platelet Volume 7.1 fL (7.4-10.4); Platelet Count 186 10x3/uL (130-400); RBC Distribution Width 12.4 % (11.5-14.5); Red Blood Cell (RBC) Count 4.26 mill/uL (4.20-5.40); White Blood Cell (WBC) Count 7.6 10x3/uL (4.8-10.8)
[2022-10-01] MEDS: Levothyroxine 175 MCG TAB PO SCH (05:31)
[2022-10-01] MEDS: HumaLOG 300 UNITS/3 ML VIAL SC PRN (05:32)
[2022-10-01 05:52] LABS: Anion Gap 14 mmol/L (10-20); BUN (Urea Nitrogen) 15 mg/dL (9.8-20.1); Calc. Creatinine Clearance 108 mL/min (70-130); Calcium 9.7 mg/dL (7.8-10.44); Carbon Dioxide 22 mmol/L (23-31); Chloride 104 mmol/L (98-107); Estimated GFR 80; Glucose 195 mg/dL (80-115); Sodium 136 mmol/L (136-145)
[2022-10-01 08:01] VITALS: TEMP 97.8
[2022-10-01] MEDS: Amlodipine 10 MG TAB PO SCH (08:43)
[2022-10-01 08:44] VITALS: BP 137/78
[2022-10-01] MEDS: Carvedilol 6.25 MG TAB PO SCH (08:44)
[2022-10-01] MEDS: Fluconazole 100 MG TAB PO SCH (08:44)
[2022-10-01] MEDS: FLUoxetine HCl 20 MG CAP PO SCH (08:44)
[2022-10-01] MEDS: Famotidine 20 MG TAB PO SCH (08:44)
[2022-10-01] MEDS: busPIRone HCl 10 MG TAB PO SCH (08:44)
[2022-10-01] MEDS: Insulin Glargine 30 UNITS/0.3 ML VIAL SC SCH (08:45)
== END 2022-10-01 10:37 | disposition home or self-care (01) | DRG 638 ==
LOC: ERS 11:22 → ERHOLD 16:59 → MSONC 19:35
PROVIDERS: ADMIT Specialist; ATTEND Specialist
DX: E11.00 Type 2 diabetes mellitus with hyperosmolarity without nonketotic hyperglycemic-hyperosmolar coma (NKHHC) (principal); N17.9 Acute kidney failure, unspecified; Z68.41 Body mass index [BMI] 40.0-44.9, adult; E03.9 Hypothyroidism, unspecified; E78.5 Hyperlipidemia, unspecified; E78.00 Pure hypercholesterolemia, unspecified; I10 Essential (primary) hypertension; E11.40 Type 2 diabetes mellitus with diabetic neuropathy, unspecified; F41.9 Anxiety disorder, unspecified; F17.210 Nicotine dependence, cigarettes, uncomplicated; I25.10 Atherosclerotic heart disease of native coronary artery without angina pectoris; J44.9 Chronic obstructive pulmonary disease, unspecified; F31.9 Bipolar disorder, unspecified; K21.9 Gastro-esophageal reflux disease without esophagitis; E66.9 Obesity, unspecified; E87.8 Other disorders of electrolyte and fluid balance, not elsewhere classified; Z20.822 Contact with and (suspected) exposure to COVID-19; I25.2 Old myocardial infarction; Z95.5 Presence of coronary angioplasty implant and graft; Z98.890 Other specified postprocedural states; Z91.018 Allergy to other foods; Z90.49 Acquired absence of other specified parts of digestive tract; Z90.710 Acquired absence of both cervix and uterus; Z98.42 Cataract extraction status, left eye; Z98.41 Cataract extraction status, right eye
CPT/HCPCS: 36415; 36416; 70450; 80048; 80053; 80061; 81003; 82010; 82550; 82805; 83036; 83880; 84443; 84484; 85025; 93005; 96361; 96374; J1650; J1815; J7050; U0003; U0005

== ENCOUNTER 2023-06-03 14:48 | Inpatient (IN) | payer MEDICARE, OTHER ==
[~2023-06-03 14:48] MED LIST changes: -ISOVUE-370 76%-LOCM 1 ML ONE; +Iopamidol-370 76% 500 ML MDV (1 ML CHARGE) ONE
[2023-06-03 15:20] LABS: #Monocytes 0.9 thou/uL (0.11-0.59); #Neutrophils 11.8 thou/uL (1.40-6.50); %Basophils 0.2 % (0.0-1.0); %Lymphocytes 9.7 % (21.0-51.0); %Monocytes 6.1 % (0.0-10.0); %Neutrophils 83.6 % (42.0-75.0); Hematocrit 42.5 % (36.0-47.0); Hemoglobin 14.1 g/dL (12.0-16.0); Mean Corpuscular HGB CONC 33.2 g/dL (32.0-36.0); Mean Corpuscular Hemoglobin 28.8 pg (27.0-31.0); Mean Corpuscular Volume 86.7 fl (78.0-98.0); Mean Platelet Volume 9.5 fL (7.4-10.4); Platelet Count 272 10x3/uL (130-400); RBC Distribution Width 13.5 % (11.5-14.5); White Blood Cell (WBC) Count 14.2 10x3/uL (4.8-10.8)
[2023-06-03] MEDS ORDERED: cefTRIAXone (ROCEPHIN) 2 GM VIAL ONE (15:33)
[2023-06-03 15:43] LABS: ALT (SGPT) 25 U/L (8-55); AST (SGOT) 42 U/L (5-34); Alkaline Phosphatase 88 U/L (40-110); Anion Gap 18 mmol/L (10-20); BUN (Urea Nitrogen) 30 mg/dL (9.8-20.1); Bilirubin, Total 0.5 mg/dL (0.2-1.2); Calc. Creatinine Clearance 0 mL/min (70-130); Calcium 10.8 mg/dL (7.8-10.44); Carbon Dioxide 24 mmol/L (23-31); Chloride 99 mmol/L (98-107); Estimated GFR 47; Glucose 152 mg/dL (80-115); Lipase Less than 4 U/L (8-78); Potassium 4.5 mmol/L (3.5-5.1); Sodium 136 mmol/L (136-145)
[2023-06-03 15:46] LABS: Troponin I 0.021 ng/mL (< 0.028)
[2023-06-03 18:26] LABS: Lactic Acid 1.2 mmol/L (0.5-2.2)
[2023-06-03 18:26] LABS: Bacteria/HPF None Seen HPF (None Seen); Bilirubin Negative (Negative); Blood, Urine 3+ (Negative); CAUTI Indications for Culture Dysuria,urgency,freq; Clarity Clear (Clear); Glucose, Urine (Dipstick) Normal (Negative); Ketone, Urine Negative (Negative); Leukocyte 25 Leu/uL (Negative); Nitrite Negative (Negative); Protein, Urine (Dipstick) 30 mg/dL (Neg-Trace); RBC/HPF 21-50 HPF (0-3); Squamous Epithelial 0-3 HPF (0-3); Urobilinogen Normal mg/dL (Less than 2)
[2023-06-03 18:27] LABS: Specific Gravity, Urine 1.049 (1.002-1.036)
[2023-06-03 18:29] LABS: Urine Culture Reflex No No
[2023-06-03] MEDS ORDERED: Ipratropium/Albuterol 3 ML NEB ONE (20:42)
[2023-06-03 21:23] LABS: Free T4 (Free Thyroxine) 1.5 ng/dL (0.70-1.48)
[2023-06-04 01:49] VITALS: BMI 36.8
[2023-06-04] MEDS ORDERED: Ondansetron PF 4 MG/2 ML Vial IVP PRN (02:55)
[2023-06-04] MEDS ORDERED: Acetaminophen 325 MG TAB PO PRN (02:55)
[2023-06-04] MEDS ORDERED: Dextrose 5% in Water 1,000 ML IV PRN (03:05)
[2023-06-04] MEDS ORDERED: Dextrose 50% Abboject 50 ML SYRINGE SLOW IVP PRN (03:05)
[2023-06-04] MEDS ORDERED: HumaLOG 300 UNITS/3 ML VIAL SC PRN (03:05)
[2023-06-04] MEDS ORDERED: Glucagon 1 MG/ML KIT IM PRN (03:05)
[2023-06-04] MEDS ORDERED: Ipratropium/Albuterol 3 ML NEB EZPAP PRN (03:40)
[2023-06-04] MEDS: Sodium Chloride 0.9% 1,000 ML IV SCH ×3 (04:08→21:29)
[2023-06-04 04:22] LABS: #Eosinphils 0.1 thou/uL (0.0-0.7); #Monocytes 0.9 thou/uL (0.11-0.59); #Neutrophils 7.6 thou/uL (1.40-6.50); %Basophils 0.4 % (0.0-1.0); %Eosinophils 0.6 % (0.0-10.0); %Lymphocytes 19.1 % (21.0-51.0); %Monocytes 8.3 % (0.0-10.0); %Neutrophils 71.4 % (42.0-75.0); Hematocrit 35.9 % (36.0-47.0); Hemoglobin 11.6 g/dL (12.0-16.0); Mean Corpuscular HGB CONC 32.3 g/dL (32.0-36.0); Mean Corpuscular Hemoglobin 28.4 pg (27.0-31.0); Mean Corpuscular Volume 87.8 fl (78.0-98.0); Mean Platelet Volume 9.5 fL (7.4-10.4); Platelet Count 227 10x3/uL (130-400); RBC Distribution Width 13.7 % (11.5-14.5); Red Blood Cell (RBC) Count 4.09 mill/uL (4.20-5.40); White Blood Cell (WBC) Count 10.7 10x3/uL (4.8-10.8)
[2023-06-04 04:47] LABS: Anion Gap 16 mmol/L (10-20); BUN (Urea Nitrogen) 26 mg/dL (9.8-20.1); CK (CPK) 647 U/L (29-168); Calc. Creatinine Clearance 93 mL/min (70-130); Calcium 9.5 mg/dL (7.8-10.44); Carbon Dioxide 23 mmol/L (23-31); Chloride 105 mmol/L (98-107); Estimated GFR 74; Glucose 79 mg/dL (80-115); Potassium 3.9 mmol/L (3.5-5.1); Sodium 140 mmol/L (136-145)
[2023-06-04] MEDS: Ipratropium/Albuterol 3 ML NEB NEB SCH ×3 (06:56→18:42)
[2023-06-04] MEDS ORDERED: ALPRAZolam 0.5 MG TAB PO PRN (08:24)
[2023-06-04] MEDS ORDERED: BREXPIPRAZOLE 1 MG PO SCH (09:00)
[2023-06-04] MEDS ORDERED: BREXPIPRAZOLE 4 MG PO SCH (09:00)
[2023-06-04] MEDS ORDERED: Non-Formulary Item 1 EACH (Fluoxetine Hcl [Fluoxetine Hcl] 40 MG Capsule) PO SCH (09:00)
[2023-06-04] MEDS ORDERED: Non-Formulary Item 1 EACH (Multivitamin [Multi-Vitamin Daily] 1 TABLET Tablet) PO SCH (09:00)
[2023-06-04] MEDS ORDERED: Non-Formulary Item 1 EACH (Buspirone Hcl [Buspirone Hcl] 30 MG Tablet) PO SCH (09:00)
[2023-06-04] MEDS ORDERED: FEBUXOSTAT 80 MG PO SCH (09:00)
[2023-06-04] MEDS ORDERED: Levothyroxine 150 MCG TAB PO SCH (09:00)
[2023-06-04] MEDS ORDERED: Non-Formulary Item 1 EACH (Carvedilol [Carvedilol] 12.5 MG Tablet) PO SCH (09:00)
[2023-06-04] MEDS ORDERED: Aripiprazole 10 MG TAB PO SCH (09:00)
[2023-06-04] MEDS: Lisinopril 20 MG TAB PO SCH (10:15)
[2023-06-04] MEDS: Amlodipine 10 MG TAB PO SCH (10:16)
[2023-06-04] MEDS: Furosemide 40 MG TAB PO SCH (10:16)
[2023-06-04] MEDS: Cyclobenzaprine 10 MG TAB PO SCH ×3 (10:16→21:22)
[2023-06-04] MEDS: busPIRone HCl 10 MG TAB PO SCH ×2 (10:16→21:22)
[2023-06-04] MEDS: Multivit, Therapeutic 1 TAB PO SCH (10:17)
[2023-06-04] MEDS: Carvedilol 6.25 MG TAB PO SCH ×2 (10:17→21:24)
[2023-06-04] MEDS: Isosorbide Mononitrate 60 MG ER.TAB PO SCH (10:17)
[2023-06-04] MEDS: Clopidogrel Bisulfate 75 MG TAB PO SCH (10:17)
[2023-06-04] MEDS: FLUoxetine HCl 20 MG CAP PO SCH (10:18)
[2023-06-04] MEDS: Aspirin 81 mg Enteric Coated Tablet PO SCH (10:18)
[2023-06-04] MEDS: Mirabegron ER 25 MG ER.TAB PO SCH (10:19)
[2023-06-04] MEDS: Ascorbic Acid 500 mg Chewable Tablet PO SCH ×2 (10:19→21:22)
[2023-06-04] MEDS: Febuxostat 40 MG TAB PO SCH (10:20)
[2023-06-04] MEDS: Aripiprazole 15 MG TAB PO SCH (10:28)
[2023-06-04] MEDS: cefTRIAXone\\ROCEPHIN 1 GM in Sodium Chloride 0.9% 100 ML IVPB SCH (15:59)
[2023-06-04] MEDS: Icosapent Ethyl 1 GM CAPSULE FS SCH (16:00)
[2023-06-04] MEDS ORDERED: Non-Formulary Item 1 EACH (Icosapent Ethyl 1 GM Capsule) PO SCH (17:00)
[2023-06-04] MEDS ORDERED: Non-Formulary Item 1 EACH (Quetiapine Fumarate [Seroquel] 50 MG Tablet) PO SCH (21:00)
[2023-06-04] MEDS: QUEtiapine 100 MG TAB PO SCH (21:22)
[2023-06-04] MEDS: Atorvastatin Calcium 40 MG TAB PO SCH (21:24)
[2023-06-05] MEDS: Ipratropium/Albuterol 3 ML NEB NEB SCH ×2 (00:25→07:18)
[2023-06-05 04:53] LABS: #Eosinphils 0.2 thou/uL (0.0-0.7); #Monocytes 0.5 thou/uL (0.11-0.59); #Neutrophils 3.1 thou/uL (1.40-6.50); %Basophils 0.7 % (0.0-1.0); %Lymphocytes 34.4 % (21.0-51.0); %Monocytes 8.4 % (0.0-10.0); %Neutrophils 52.2 % (42.0-75.0); Hematocrit 32.3 % (36.0-47.0); Hemoglobin 10.3 g/dL (12.0-16.0); Mean Corpuscular HGB CONC 31.9 g/dL (32.0-36.0); Mean Corpuscular Hemoglobin 28.7 pg (27.0-31.0); Mean Platelet Volume 9.7 fL (7.4-10.4); Platelet Count 180 10x3/uL (130-400); RBC Distribution Width 13.5 % (11.5-14.5); Red Blood Cell (RBC) Count 3.59 mill/uL (4.20-5.40)
[2023-06-05 05:19] LABS: Anion Gap 11 mmol/L (10-20); BUN (Urea Nitrogen) 24 mg/dL (9.8-20.1); Calc. Creatinine Clearance 100 mL/min (70-130); Calcium 8.8 mg/dL (7.8-10.44); Carbon Dioxide 24 mmol/L (23-31); Chloride 108 mmol/L (98-107); Estimated GFR 81; Glucose 135 mg/dL (80-115); Potassium 3.8 mmol/L (3.5-5.1); Sodium 139 mmol/L (136-145)
[2023-06-05] MEDS: Levothyroxine Sodium 125 MCG TAB PO SCH (05:25)
[2023-06-05] MEDS: FLUoxetine HCl 20 MG CAP PO SCH (09:47)
[2023-06-05] MEDS: Icosapent Ethyl 1 GM CAPSULE FS SCH ×2 (09:47→16:06)
[2023-06-05] MEDS: busPIRone HCl 10 MG TAB PO SCH ×2 (09:48→21:37)
[2023-06-05] MEDS: Amlodipine 10 MG TAB PO SCH (09:48)
[2023-06-05] MEDS: Carvedilol 6.25 MG TAB PO SCH ×2 (09:48→21:37)
[2023-06-05] MEDS: Aripiprazole 15 MG TAB PO SCH (09:48)
[2023-06-05] MEDS: Aspirin 81 mg Enteric Coated Tablet PO SCH (09:49)
[2023-06-05] MEDS: Isosorbide Mononitrate 60 MG ER.TAB PO SCH (09:49)
[2023-06-05] MEDS: Empagliflozin 25 MG TAB PO SCH (09:49)
[2023-06-05] MEDS: Cyclobenzaprine 10 MG TAB PO SCH ×3 (09:49→21:37)
[2023-06-05] MEDS: Mirabegron ER 25 MG ER.TAB PO SCH (09:49)
[2023-06-05] MEDS: Clopidogrel Bisulfate 75 MG TAB PO SCH (09:49)
[2023-06-05] MEDS: Lisinopril 20 MG TAB PO SCH (09:49)
[2023-06-05] MEDS: Furosemide 40 MG TAB PO SCH (09:49)
[2023-06-05] MEDS: Multivit, Therapeutic 1 TAB PO SCH (09:49)
[2023-06-05] MEDS: Ascorbic Acid 500 mg Chewable Tablet PO SCH ×2 (11:01→21:37)
[2023-06-05] MEDS: Sodium Chloride 0.9% 1,000 ML IV SCH ×2 (11:01→18:22)
[2023-06-05] MEDS: Febuxostat 40 MG TAB PO SCH (11:02)
[2023-06-05] MEDS: Alogliptin 25 MG TAB PO SCH (11:02)
[2023-06-05] MEDS: HumaLOG 300 UNITS/3 ML VIAL SC PRN (13:36)
[2023-06-05] MEDS: cefTRIAXone\\ROCEPHIN 1 GM in Sodium Chloride 0.9% 100 ML IVPB SCH (16:06)
[2023-06-05] MEDS: Bisacodyl 5 MG TAB PO PRN (18:22)
[2023-06-05] MEDS: QUEtiapine 100 MG TAB PO SCH (21:37)
[2023-06-05] MEDS: Atorvastatin Calcium 40 MG TAB PO SCH (21:37)
[2023-06-05] MEDS: Clotrimazole 1 % Cream 30 GM TUBE TOP SCH (23:14)
[2023-06-06] MEDS: Sodium Chloride 0.9% 1,000 ML IV SCH ×2 (05:27→15:30)
[2023-06-06] MEDS: Levothyroxine Sodium 125 MCG TAB PO SCH (05:29)
[2023-06-06 07:35] LABS: #Basophils 0.1 thou/uL (0.0-0.2); #Eosinphils 0.3 thou/uL (0.0-0.7); #Monocytes 0.3 thou/uL (0.11-0.59); #Neutrophils 3.1 thou/uL (1.40-6.50); %Basophils 0.9 % (0.0-1.0); %Eosinophils 5.4 % (0.0-10.0); %Lymphocytes 29.9 % (21.0-51.0); %Monocytes 6.3 % (0.0-10.0); %Neutrophils 57.3 % (42.0-75.0); Hematocrit 35.7 % (36.0-47.0); Hemoglobin 11.7 g/dL (12.0-16.0); Mean Corpuscular HGB CONC 32.8 g/dL (32.0-36.0); Mean Corpuscular Hemoglobin 28.9 pg (27.0-31.0); Mean Corpuscular Volume 88.1 fl (78.0-98.0); Mean Platelet Volume 9.6 fL (7.4-10.4); Platelet Count 192 10x3/uL (130-400); RBC Distribution Width 13.1 % (11.5-14.5); Red Blood Cell (RBC) Count 4.05 mill/uL (4.20-5.40); White Blood Cell (WBC) Count 5.4 10x3/uL (4.8-10.8)
[2023-06-06 07:50] LABS: Anion Gap 15 mmol/L (10-20); BUN (Urea Nitrogen) 20 mg/dL (9.8-20.1); Calc. Creatinine Clearance 97 mL/min (70-130); Calcium 9.5 mg/dL (7.8-10.44); Carbon Dioxide 20 mmol/L (23-31); Chloride 106 mmol/L (98-107); Estimated GFR 79; Glucose 131 mg/dL (80-115); Potassium 3.9 mmol/L (3.5-5.1); Sodium 137 mmol/L (136-145)
[2023-06-06] MEDS: Clotrimazole 1 % Cream 30 GM TUBE TOP SCH ×2 (10:35→21:12)
[2023-06-06] MEDS: Furosemide 40 MG TAB PO SCH (10:37)
[2023-06-06] MEDS: Mirabegron ER 25 MG ER.TAB PO SCH (10:37)
[2023-06-06] MEDS: Febuxostat 40 MG TAB PO SCH (10:37)
[2023-06-06] MEDS: Aripiprazole 15 MG TAB PO SCH (10:37)
[2023-06-06] MEDS: Isosorbide Mononitrate 60 MG ER.TAB PO SCH (10:37)
[2023-06-06] MEDS: FLUoxetine HCl 20 MG CAP PO SCH (10:38)
[2023-06-06] MEDS: Alogliptin 25 MG TAB PO SCH (10:38)
[2023-06-06] MEDS: Icosapent Ethyl 1 GM CAPSULE FS SCH ×2 (10:38→17:38)
[2023-06-06] MEDS: Aspirin 81 mg Enteric Coated Tablet PO SCH (10:38)
[2023-06-06] MEDS: Ascorbic Acid 500 mg Chewable Tablet PO SCH ×2 (10:38→21:11)
[2023-06-06] MEDS: Lisinopril 20 MG TAB PO SCH (10:39)
[2023-06-06] MEDS: busPIRone HCl 10 MG TAB PO SCH ×2 (10:39→21:11)
[2023-06-06] MEDS: Multivit, Therapeutic 1 TAB PO SCH (10:39)
[2023-06-06] MEDS: Empagliflozin 25 MG TAB PO SCH (10:39)
[2023-06-06] MEDS: Amlodipine 10 MG TAB PO SCH (10:39)
[2023-06-06] MEDS: Clopidogrel Bisulfate 75 MG TAB PO SCH (10:39)
[2023-06-06] MEDS: Cyclobenzaprine 10 MG TAB PO SCH ×3 (10:39→21:11)
[2023-06-06] MEDS: Carvedilol 6.25 MG TAB PO SCH ×2 (10:39→21:11)
[2023-06-06] MEDS: HumaLOG 300 UNITS/3 ML VIAL SC PRN (13:56)
[2023-06-06] MEDS: cefTRIAXone\\ROCEPHIN 1 GM in Sodium Chloride 0.9% 100 ML IVPB SCH (15:30)
[2023-06-06] MEDS: Atorvastatin Calcium 40 MG TAB PO SCH (21:11)
[2023-06-06] MEDS: QUEtiapine 100 MG TAB PO SCH (21:12)
[2023-06-07] MEDS: Sodium Chloride 0.9% 1,000 ML IV SCH ×2 (01:26→11:36)
[2023-06-07 04:36] LABS: #Eosinphils 0.2 thou/uL (0.0-0.7); #Monocytes 0.3 thou/uL (0.11-0.59); #Neutrophils 2.7 thou/uL (1.40-6.50); %Basophils 0.8 % (0.0-1.0); %Eosinophils 4.2 % (0.0-10.0); %Lymphocytes 34.5 % (21.0-51.0); %Monocytes 5.9 % (0.0-10.0); %Neutrophils 54.4 % (42.0-75.0); Hematocrit 35.8 % (36.0-47.0); Hemoglobin 11.9 g/dL (12.0-16.0); Mean Corpuscular HGB CONC 33.2 g/dL (32.0-36.0); Mean Corpuscular Hemoglobin 28.8 pg (27.0-31.0); Mean Corpuscular Volume 86.7 fl (78.0-98.0); Mean Platelet Volume 9.3 fL (7.4-10.4); Platelet Count 218 10x3/uL (130-400); RBC Distribution Width 12.9 % (11.5-14.5); Red Blood Cell (RBC) Count 4.13 mill/uL (4.20-5.40)
[2023-06-07 05:03] LABS: Anion Gap 14 mmol/L (10-20); BUN (Urea Nitrogen) 21 mg/dL (9.8-20.1); Calc. Creatinine Clearance 93 mL/min (70-130); Calcium 9.5 mg/dL (7.8-10.44); Carbon Dioxide 23 mmol/L (23-31); Chloride 105 mmol/L (98-107); Estimated GFR 74; Glucose 154 mg/dL (80-115); Potassium 3.5 mmol/L (3.5-5.1); Sodium 138 mmol/L (136-145)
[2023-06-07] MEDS: Bisacodyl 5 MG TAB PO PRN (05:24)
[2023-06-07] MEDS: Levothyroxine Sodium 125 MCG TAB PO SCH (05:24)
[2023-06-07 07:43] VITALS: TEMP 97.8
[2023-06-07] MEDS: Alogliptin 25 MG TAB PO SCH (09:18)
[2023-06-07] MEDS: Mirabegron ER 25 MG ER.TAB PO SCH (09:18)
[2023-06-07] MEDS: busPIRone HCl 10 MG TAB PO SCH (09:18)
[2023-06-07] MEDS: Carvedilol 6.25 MG TAB PO SCH (09:19)
[2023-06-07] MEDS: Aspirin 81 mg Enteric Coated Tablet PO SCH (09:19)
[2023-06-07] MEDS: Ascorbic Acid 500 mg Chewable Tablet PO SCH (09:19)
[2023-06-07] MEDS: FLUoxetine HCl 20 MG CAP PO SCH (09:19)
[2023-06-07] MEDS: Cyclobenzaprine 10 MG TAB PO SCH ×2 (09:20→16:28)
[2023-06-07] MEDS: Icosapent Ethyl 1 GM CAPSULE FS SCH ×2 (09:20→16:28)
[2023-06-07] MEDS: Clopidogrel Bisulfate 75 MG TAB PO SCH (09:20)
[2023-06-07] MEDS: Lisinopril 20 MG TAB PO SCH (09:20)
[2023-06-07] MEDS: Empagliflozin 25 MG TAB PO SCH (09:21)
[2023-06-07] MEDS: Multivit, Therapeutic 1 TAB PO SCH (09:21)
[2023-06-07] MEDS: Furosemide 40 MG TAB PO SCH (09:21)
[2023-06-07] MEDS: Aripiprazole 15 MG TAB PO SCH (09:21)
[2023-06-07] MEDS: Amlodipine 10 MG TAB PO SCH (09:21)
[2023-06-07] MEDS: Febuxostat 40 MG TAB PO SCH (09:22)
[2023-06-07] MEDS: Clotrimazole 1 % Cream 30 GM TUBE TOP SCH (09:22)
[2023-06-07] MEDS: Isosorbide Mononitrate 60 MG ER.TAB PO SCH (09:22)
[2023-06-07] MEDS: HumaLOG 300 UNITS/3 ML VIAL SC PRN (13:10)
[2023-06-07] MEDS ORDERED: cefTRIAXone\\ROCEPHIN 1 GM in Sodium Chloride 0.9% 100 ML IVPB SCH (16:00)
[2023-06-07 16:24] VITALS: BP 135/64
== END 2023-06-07 17:24 | disposition home health service (06) | DRG 872 ==
LOC: ERS 14:48 → 2NO 20:31 → T4-B 06-05 22:38
PROVIDERS: ADMIT Internal Medicine; ATTEND Internal Medicine
DX: A41.9 Sepsis, unspecified organism (principal); I69.351 Hemiplegia and hemiparesis following cerebral infarction affecting right dominant side; N39.0 Urinary tract infection, site not specified; N17.9 Acute kidney failure, unspecified; E87.20 Acidosis, unspecified; I50.32 Chronic diastolic (congestive) heart failure; Z66 Do not resuscitate; I13.0 Hypertensive heart and chronic kidney disease with heart failure and stage 1 through stage 4 chronic kidney disease, or unspecified chronic kidney disease; I25.10 Atherosclerotic heart disease of native coronary artery without angina pectoris; E78.5 Hyperlipidemia, unspecified; J44.9 Chronic obstructive pulmonary disease, unspecified; E03.9 Hypothyroidism, unspecified; G62.9 Polyneuropathy, unspecified; F17.210 Nicotine dependence, cigarettes, uncomplicated; R53.1 Weakness; E86.0 Dehydration; E83.52 Hypercalcemia; N18.2 Chronic kidney disease, stage 2 (mild); B35.4 Tinea corporis; Z79.899 Other long term (current) drug therapy; Z91.018 Allergy to other foods; Z79.82 Long term (current) use of aspirin; Z98.41 Cataract extraction status, right eye; Z98.42 Cataract extraction status, left eye; Z90.710 Acquired absence of both cervix and uterus; Z90.49 Acquired absence of other specified parts of digestive tract; Z98.890 Other specified postprocedural states; Z82.49 Family history of ischemic heart disease and other diseases of the circulatory system
CPT/HCPCS: 36415; 36416; 51701; 70450; 71045; 72125; 74177; 80048; 80053; 81001; 82550; 83605; 83690; 83880; 84439; 84443; 84481; 84484; 85025; 87040; 87086; 93005; 93970; 94640; 96361; 96365; J0696; J1650; J1815; J3490; J7050; J7620; Q9967

== ENCOUNTER 2024-05-10 15:56 | Inpatient (IN) | payer OTHER ==
[2024-05-10 17:46] LABS: #Basophils 0.03 10x3/uL (0.0-0.2); %Basophils 0.3 % (0.0-1.0); %Eosinophils 0.5 % (0.0-10.0); %Lymphocytes 17.4 % (21.0-51.0); %Monocytes 4.9 % (0.0-10.0); %Neutrophils 76.4 % (42.0-75.0); Hematocrit 36.6 % (36.0-47.0); Hemoglobin 12.3 g/dL (12.0-16.0); Mean Corpuscular HGB CONC 33.6 g/dL (32.0-36.0); Mean Corpuscular Volume 83.2 fL (78.0-98.0); Mean Platelet Volume 9.7 fL (7.4-10.4); Platelet Count 250 10x3/uL (130-400); RBC Distribution Width 13.1 % (11.5-14.5)
[2024-05-10 17:55] LABS: ALT (SGPT) 34 U/L (8-55); AST (SGOT) 56 U/L (5-34); Albumin 3.4 g/dL (3.4-4.8); Alkaline Phosphatase 97 U/L (40-110); Anion Gap 13 mmol/L (10-20); BUN (Urea Nitrogen) 22 mg/dL (9.8-20.1); Bilirubin, Total 0.3 mg/dL (0.2-1.2); Calc. Creatinine Clearance 0 mL/min (70-130); Calcium 9.8 mg/dL (7.8-10.44); Carbon Dioxide 25 mmol/L (23-31); Chloride 97 mmol/L (98-107); Estimated GFR 43; Globulin 3.8 g/dL (2.4-3.5); Glucose 368 mg/dL (80-115); Potassium 4.3 mmol/L (3.5-5.1); Protein, Total 7.2 g/dL (5.8-8.1); Sodium 131 mmol/L (136-145)
[2024-05-10 20:22] LABS: Bilirubin Negative (Negative); Blood, Urine 2+ (Negative); CAUTI Indications for Culture Fever or rigors; Clarity Clear (Clear); Glucose, Urine (Dipstick) Greater than 1000 mg/dL (Negative); Ketone, Urine Negative (Negative); Leukocyte Negative Leu/uL (Negative); Nitrite Negative (Negative); Protein, Urine (Dipstick) 50 mg/dL (Neg-Trace); RBC/HPF 21-50 HPF (0-3); Specific Gravity, Urine 1.027 (1.002-1.036); Squamous Epithelial 0-3 HPF (0-3); Urobilinogen Normal mg/dL (Less than 2)
[2024-05-10 21:00] LABS: Bacteria/HPF Rare-Few HPF (None Seen)
[2024-05-10 21:01] LABS: Yeast-Budding 1+ HPF (None Seen)
[2024-05-10 21:05] LABS: Urine Culture Reflex No No
[2024-05-10] MEDS ORDERED: Insulin Regular, Human 100 UNIT/ML 10 ML VIAL ONE (22:58)
[2024-05-10] MEDS ORDERED: Ondansetron PF 4 MG/2 ML Vial IVP PRN (23:45)
[2024-05-10] MEDS ORDERED: Dextrose 5% in Water 1,000 ML IV PRN (23:45)
[2024-05-10] MEDS ORDERED: Ondansetron ODT 4 MG TAB PO PRN (23:45)
[2024-05-10] MEDS ORDERED: Dextrose 50% Abboject 50 ML SYRINGE SLOW IVP PRN (23:45)
[2024-05-10] MEDS ORDERED: Glucagon 1 MG/ML KIT IM PRN (23:45)
[2024-05-11 01:40] LABS: Acetaminophen Less than 10 mcg/mL (Less than 10); Alcohol Less than 10.0 mg/dL (Less than 10); Salicylate Less than 8.0 mg/dL (Less than 8.0)
[2024-05-11 02:27] LABS: Amphetamine Not Detected (NotDetected); Barbiturates Screen Not Detected (NotDetected); Benzodiazepine Screen Not Detected (NotDetected); Cocaine Metabolite Screen Not Detected (NotDetected); Methadone Not Detected (NotDetected); Methamphetamine Not Detected (NotDetected); Opiate Screen Not Detected (NotDetected); Oxycodone Screen Not Detected (NotDetected); Phencyclidine (PCP) Not Detected (NotDetected); THC/Cannabinoid Screen Not Detected (NotDetected); Tricyclic Screen Detected (NotDetected)
[2024-05-11 02:42] VITALS: BMI 37.3
[2024-05-11] MEDS: Sodium Chloride 0.9% 1,000 ML IV SCH (04:03)
[2024-05-11 06:14] LABS: #Basophils 0.06 10x3/uL (0.0-0.2); %Basophils 0.6 % (0.0-1.0); %Eosinophils 1.5 % (0.0-10.0); %Lymphocytes 20.5 % (21.0-51.0); %Monocytes 4.7 % (0.0-10.0); %Neutrophils 72.2 % (42.0-75.0); Hematocrit 35.8 % (36.0-47.0); Hemoglobin 11.8 g/dL (12.0-16.0); Mean Corpuscular Hemoglobin 27.6 pg (27.0-31.0); Mean Corpuscular Volume 83.8 fL (78.0-98.0); Mean Platelet Volume 9.6 fL (7.4-10.4); Platelet Count 256 10x3/uL (130-400); RBC Distribution Width 13.2 % (11.5-14.5); Red Blood Cell (RBC) Count 4.27 mill/uL (4.20-5.40)
[2024-05-11 06:31] LABS: Anion Gap 12 mmol/L (10-20); BUN (Urea Nitrogen) 21 mg/dL (9.8-20.1); CK (CPK) 1042 U/L (29-168); Calc. Creatinine Clearance 79 mL/min (70-130); Calcium 9.3 mg/dL (7.8-10.44); Carbon Dioxide 25 mmol/L (23-31); Chloride 99 mmol/L (98-107); Estimated GFR 61; Glucose 278 mg/dL (80-115); Magnesium 1.9 mg/dL (1.6-2.6); Phosphorus 2.7 mg/dL (2.3-4.7); Potassium 3.7 mmol/L (3.5-5.1); Sodium 132 mmol/L (136-145)
[2024-05-11] MEDS: Insulin Lispro 100 UNIT/ML 10 ML VIAL SC PRN ×2 (06:33→20:59)
[2024-05-11 06:38] LABS: Hemoglobin A1c Greater than 14.0 % (4.0-6.0)
[2024-05-11] MEDS: Clotrimazole 1% Cream 15 GM TUBE TOP SCH (09:15)
[2024-05-11] MEDS: Heparin 5,000 UNITS/ML VIAL SC SCH (09:19)
[2024-05-11] MEDS: Acetaminophen 325 MG TAB PO PRN (09:19)
[2024-05-11] MEDS: FLU (Fluad Triv) TS24-25 (65UP)/MF59C/PF 45 MCG/0.5 ML Syringe IM ONE (11:21)
[2024-05-11] MEDS: Clotrimazole 1 % Cream 30 GM TUBE TOP SCH (16:34)
[2024-05-12 05:05] LABS: #Basophils Less than 0.03 10x3/uL (0.0-0.2); %Basophils 0.3 % (0.0-1.0); %Eosinophils 2.8 % (0.0-10.0); %Lymphocytes 33.6 % (21.0-51.0); %Monocytes 6.7 % (0.0-10.0); %Neutrophils 56.3 % (42.0-75.0); Hematocrit 33.2 % (36.0-47.0); Mean Corpuscular HGB CONC 33.1 g/dL (32.0-36.0); Mean Corpuscular Hemoglobin 27.9 pg (27.0-31.0); Mean Corpuscular Volume 84.3 fL (78.0-98.0); Mean Platelet Volume 10.3 fL (7.4-10.4); Platelet Count 210 10x3/uL (130-400); RBC Distribution Width 13.2 % (11.5-14.5); Red Blood Cell (RBC) Count 3.94 mill/uL (4.20-5.40)
[2024-05-12 05:53] LABS: Iron 38 ug/dL (50-170); Iron Binding Capacity, Total 234 mcg/dL (265-497)
[2024-05-12 06:08] LABS: Ferritin 191.87 ng/mL (10-291); Free T4 (Free Thyroxine) 1.27 ng/dL (0.70-1.48)
[2024-05-12 06:09] LABS: Anion Gap 11 mmol/L (10-20); BUN (Urea Nitrogen) 16 mg/dL (9.8-20.1); CK (CPK) 370 U/L (29-168); Calc. Creatinine Clearance 82 mL/min (70-130); Calcium 8.7 mg/dL (7.8-10.44); Carbon Dioxide 22 mmol/L (23-31); Chloride 103 mmol/L (98-107); Estimated GFR 64; Glucose 296 mg/dL (80-115); Iron 37 ug/dL (50-170); Iron Binding Capacity, Total 233 mcg/dL (265-497); Sodium 132 mmol/L (136-145)
[2024-05-12 06:35] LABS: Vitamin D, 25 Hydroxy 30.3 ng/ml (> 30.0)
[2024-05-12] MEDS: FLU (Fluad Triv) TS24-25 (65UP)/MF59C/PF 45 MCG/0.5 ML Syringe ONE (08:39)
[2024-05-12 10:44] VITALS: BMI 37.3
[2024-05-12] MEDS: Sodium Chloride 0.9% 1,000 ML IV SCH (11:21)
[2024-05-12] MEDS: Insulin Glargine 30 UNITS/0.3 ML VIAL SC SCH (11:21)
[2024-05-13 05:56] LABS: #Basophils 0.05 10x3/uL (0.0-0.2); %Basophils 0.8 % (0.0-1.0); %Eosinophils 3.4 % (0.0-10.0); %Lymphocytes 28.3 % (21.0-51.0); %Monocytes 7.1 % (0.0-10.0); %Neutrophils 59.6 % (42.0-75.0); Hematocrit 36.8 % (36.0-47.0); Hemoglobin 12.1 g/dL (12.0-16.0); Mean Corpuscular HGB CONC 32.9 g/dL (32.0-36.0); Mean Corpuscular Hemoglobin 27.8 pg (27.0-31.0); Mean Corpuscular Volume 84.6 fL (78.0-98.0); Mean Platelet Volume 9.7 fL (7.4-10.4); Platelet Count 227 10x3/uL (130-400); Red Blood Cell (RBC) Count 4.35 mill/uL (4.20-5.40)
[2024-05-13 06:23] LABS: Anion Gap 13 mmol/L (10-20); BUN (Urea Nitrogen) 13 mg/dL (9.8-20.1); Calc. Creatinine Clearance 91 mL/min (70-130); Calcium 9.6 mg/dL (7.8-10.44); Carbon Dioxide 21 mmol/L (23-31); Chloride 100 mmol/L (98-107); Estimated GFR 72; Glucose 289 mg/dL (80-115); Potassium 4.3 mmol/L (3.5-5.1); Sodium 130 mmol/L (136-145)
[2024-05-13] MEDS: Insulin Glargine 30 UNITS/0.3 ML VIAL SC SCH (21:07)
[2024-05-14 05:10] LABS: #Basophils 0.05 10x3/uL (0.0-0.2); %Basophils 0.8 % (0.0-1.0); %Eosinophils 3.1 % (0.0-10.0); %Lymphocytes 31.3 % (21.0-51.0); %Monocytes 7.1 % (0.0-10.0); %Neutrophils 56.8 % (42.0-75.0); Hematocrit 37.4 % (36.0-47.0); Hemoglobin 12.2 g/dL (12.0-16.0); Mean Corpuscular HGB CONC 32.6 g/dL (32.0-36.0); Mean Corpuscular Hemoglobin 27.9 pg (27.0-31.0); Mean Corpuscular Volume 85.4 fL (78.0-98.0); Mean Platelet Volume 9.5 fL (7.4-10.4); Platelet Count 229 10x3/uL (130-400); RBC Distribution Width 12.9 % (11.5-14.5); Red Blood Cell (RBC) Count 4.38 mill/uL (4.20-5.40)
[2024-05-14 06:03] LABS: ALT (SGPT) 31 U/L (8-55); AST (SGOT) 42 U/L (5-34); Albumin 3.2 g/dL (3.4-4.8); Alkaline Phosphatase 83 U/L (40-110); Anion Gap 14 mmol/L (10-20); BUN (Urea Nitrogen) 15 mg/dL (9.8-20.1); Bilirubin, Total 0.4 mg/dL (0.2-1.2); CK (CPK) 87 U/L (29-168); Calc. Creatinine Clearance 87 mL/min (70-130); Calcium 9.8 mg/dL (7.8-10.44); Carbon Dioxide 22 mmol/L (23-31); Chloride 98 mmol/L (98-107); Estimated GFR 68; Globulin 4.2 g/dL (2.4-3.5); Glucose 273 mg/dL (80-115); Potassium 4.3 mmol/L (3.5-5.1); Protein, Total 7.4 g/dL (5.8-8.1); Sodium 130 mmol/L (136-145)
[2024-05-14] MEDS ORDERED: Glucagon 1 MG/ML KIT IM PRN (12:45)
[2024-05-14] MEDS ORDERED: Dextrose 50% Abboject 50 ML SYRINGE SLOW IVP PRN (12:45)
[2024-05-14] MEDS ORDERED: Dextrose 5% in Water 1,000 ML IV PRN (12:45)
[2024-05-14 12:59] LABS: Glucose 548 mg/dL (80-115)
[2024-05-14] MEDS: Clopidogrel Bisulfate 75 MG TAB PO SCH (13:13)
[2024-05-14] MEDS: Insulin Lispro 100 UNIT/ML 10 ML VIAL SC PRN ×2 (13:13→17:50)
[2024-05-14] MEDS: Albuterol 200 PUFF (6.7GM INHALER) INH PRN (14:16)
[2024-05-14] MEDS: Gabapentin 100 MG CAP PO SCH (14:18)
[2024-05-14] MEDS: Icosapent Ethyl 1 GM CAPSULE PO SCH (17:49)
[2024-05-14] MEDS: Insulin Glargine 30 UNITS/0.3 ML VIAL SC SCH (20:26)
[2024-05-15 07:35] LABS: #Basophils 0.05 10x3/uL (0.0-0.2); %Basophils 0.8 % (0.0-1.0); %Eosinophils 2.2 % (0.0-10.0); %Lymphocytes 31.8 % (21.0-51.0); %Monocytes 7.3 % (0.0-10.0); %Neutrophils 56.5 % (42.0-75.0); Hematocrit 37.3 % (36.0-47.0); Hemoglobin 12.4 g/dL (12.0-16.0); Mean Corpuscular HGB CONC 33.2 g/dL (32.0-36.0); Mean Corpuscular Hemoglobin 28.1 pg (27.0-31.0); Mean Corpuscular Volume 84.6 fL (78.0-98.0); Mean Platelet Volume 9.2 fL (7.4-10.4); Platelet Count 242 10x3/uL (130-400); RBC Distribution Width 13.2 % (11.5-14.5); Red Blood Cell (RBC) Count 4.41 mill/uL (4.20-5.40)
[2024-05-15 07:51] LABS: ALT (SGPT) 44 U/L (8-55); AST (SGOT) 58 U/L (5-34); Albumin 3.3 g/dL (3.4-4.8); Alkaline Phosphatase 79 U/L (40-110); Anion Gap 15 mmol/L (10-20); BUN (Urea Nitrogen) 24 mg/dL (9.8-20.1); Bilirubin, Total 0.3 mg/dL (0.2-1.2); CK (CPK) 49 U/L (29-168); Calc. Creatinine Clearance 92 mL/min (70-130); Carbon Dioxide 23 mmol/L (23-31); Chloride 98 mmol/L (98-107); Estimated GFR 73; Globulin 3.9 g/dL (2.4-3.5); Glucose 253 mg/dL (80-115); Potassium 3.9 mmol/L (3.5-5.1); Protein, Total 7.2 g/dL (5.8-8.1); Sodium 132 mmol/L (136-145)
[2024-05-15] MEDS: Aripiprazole 10 MG TAB PO SCH (09:05)
[2024-05-15] MEDS: Allopurinol 300 MG TAB PO SCH (09:05)
[2024-05-15] MEDS: Ramipril 5 MG CAP PO SCH (09:05)
[2024-05-15] MEDS: Aspirin 81 mg Enteric Coated Tablet PO SCH (09:06)
[2024-05-15] MEDS: Loratadine 10 MG TAB PO SCH (09:06)
[2024-05-15] MEDS: busPIRone HCl 10 MG TAB PO SCH (09:06)
[2024-05-15] MEDS: Clopidogrel Bisulfate 75 MG TAB PO SCH (09:06)
[2024-05-15] MEDS: FLUoxetine HCl 20 MG CAP PO SCH (09:06)
[2024-05-15] MEDS: Ascorbic Acid 500 mg Chewable Tablet PO SCH (09:06)
[2024-05-15] MEDS: Insulin Glargine 30 UNITS/0.3 ML VIAL SC SCH (21:35)
[2024-05-16 06:17] LABS: #Basophils 0.05 10x3/uL (0.0-0.2); %Basophils 0.7 % (0.0-1.0); %Eosinophils 2.5 % (0.0-10.0); %Lymphocytes 32.8 % (21.0-51.0); %Monocytes 6.5 % (0.0-10.0); %Neutrophils 56.1 % (42.0-75.0); Hemoglobin 12.2 g/dL (12.0-16.0); Mean Corpuscular Volume 85.1 fL (78.0-98.0); Mean Platelet Volume 9.3 fL (7.4-10.4); Platelet Count 250 10x3/uL (130-400); RBC Distribution Width 13.3 % (11.5-14.5); Red Blood Cell (RBC) Count 4.35 mill/uL (4.20-5.40)
[2024-05-16 07:16] LABS: ALT (SGPT) 52 U/L (8-55); AST (SGOT) 66 U/L (5-34); Albumin 3.4 g/dL (3.4-4.8); Alkaline Phosphatase 83 U/L (40-110); Anion Gap 15 mmol/L (10-20); BUN (Urea Nitrogen) 22 mg/dL (9.8-20.1); Bilirubin, Total 0.4 mg/dL (0.2-1.2); Calc. Creatinine Clearance 73 mL/min (70-130); Carbon Dioxide 22 mmol/L (23-31); Chloride 100 mmol/L (98-107); Estimated GFR 56; Globulin 4.3 g/dL (2.4-3.5); Glucose 331 mg/dL (80-115); Potassium 4.8 mmol/L (3.5-5.1); Protein, Total 7.7 g/dL (5.8-8.1); Sodium 132 mmol/L (136-145)
[2024-05-16] MEDS: Alogliptin 25 MG TAB PO SCH (08:49)
[2024-05-16] MEDS: Empagliflozin 25 MG TAB PO SCH (08:50)
[2024-05-16] MEDS ORDERED: Albuterol 2.5 MG (3 mL) NEB NEB PRN (13:15)
[2024-05-16] MEDS: clonazePAM 0.5 MG TAB PO SCH (15:13)
[2024-05-16] MEDS: QUEtiapine 100 MG TAB PO SCH (20:26)
[2024-05-16] MEDS: Pantoprazole DR 40 MG TAB PO SCH (20:26)
[2024-05-16] MEDS: Insulin Glargine 30 UNITS/0.3 ML VIAL SC SCH (20:28)
[2024-05-17] MEDS: Levothyroxine Sodium 125 MCG TAB PO SCH (05:26)
[2024-05-17] MEDS: Levothyroxine Sodium 100 MCG TAB PO SCH (05:26)
[2024-05-17 05:52] LABS: #Basophils 0.06 10x3/uL (0.0-0.2); %Basophils 0.7 % (0.0-1.0); %Eosinophils 0.9 % (0.0-10.0); %Lymphocytes 22.8 % (21.0-51.0); %Monocytes 4.9 % (0.0-10.0); %Neutrophils 69.6 % (42.0-75.0); Hemoglobin 12.6 g/dL (12.0-16.0); Mean Corpuscular HGB CONC 33.2 g/dL (32.0-36.0); Mean Corpuscular Hemoglobin 27.7 pg (27.0-31.0); Mean Corpuscular Volume 83.5 fL (78.0-98.0); Mean Platelet Volume 9.6 fL (7.4-10.4); Platelet Count 265 10x3/uL (130-400); RBC Distribution Width 13.6 % (11.5-14.5); Red Blood Cell (RBC) Count 4.55 mill/uL (4.20-5.40)
[2024-05-17 08:13] LABS: ALT (SGPT) 47 U/L (8-55); AST (SGOT) 40 U/L (5-34); Albumin 3.5 g/dL (3.4-4.8); Alkaline Phosphatase 86 U/L (40-110); Anion Gap 14 mmol/L (10-20); BUN (Urea Nitrogen) 35 mg/dL (9.8-20.1); Bilirubin, Total 0.3 mg/dL (0.2-1.2); Calc. Creatinine Clearance 65 mL/min (70-130); Calcium 10.6 mg/dL (7.8-10.44); Carbon Dioxide 23 mmol/L (23-31); Chloride 100 mmol/L (98-107); Estimated GFR 48; Globulin 3.9 g/dL (2.4-3.5); Glucose 277 mg/dL (80-115); Potassium 4.6 mmol/L (3.5-5.1); Protein, Total 7.4 g/dL (5.8-8.1); Sodium 132 mmol/L (136-145)
[2024-05-17] MEDS: Mirabegron ER 25 MG ER.TAB PO SCH (09:05)
[2024-05-17 13:21] VITALS: BP 129/77; TEMP 97.7
== END 2024-05-17 14:21 | DRG 683 ==
LOC: ERS 15:56 → ERHOLD 23:02 → T4-A 05-11 01:56 → OBSVTOIN 05-12 18:01
PROVIDERS: ADMIT Internal Medicine; ATTEND Internal Medicine
DX: N17.9 Acute kidney failure, unspecified (principal); I50.32 Chronic diastolic (congestive) heart failure; M62.82 Rhabdomyolysis; I69.351 Hemiplegia and hemiparesis following cerebral infarction affecting right dominant side; E11.65 Type 2 diabetes mellitus with hyperglycemia; I25.10 Atherosclerotic heart disease of native coronary artery without angina pectoris; E03.9 Hypothyroidism, unspecified; E78.5 Hyperlipidemia, unspecified; I11.0 Hypertensive heart disease with heart failure; J44.9 Chronic obstructive pulmonary disease, unspecified; E11.40 Type 2 diabetes mellitus with diabetic neuropathy, unspecified; B35.4 Tinea corporis; Z66 Do not resuscitate; E86.0 Dehydration; Z91.018 Allergy to other foods; Z90.49 Acquired absence of other specified parts of digestive tract; Z90.710 Acquired absence of both cervix and uterus; Z95.2 Presence of prosthetic heart valve; Z95.5 Presence of coronary angioplasty implant and graft; Z98.890 Other specified postprocedural states
CPT/HCPCS: 36415; 36416; 70450; 71045; 80048; 80053; 80306; 80307; 81001; 82306; 82550; 82607; 82728; 83036; 83540; 83550; 83605; 83735; 84100; 84439; 84443; 85025; 90653; 93005; 96372; 97139; G0378; J1644; J1815; J7030

== ENCOUNTER 2024-08-07 16:11 | Emergency (ER) | payer MEDICARE, OTHER ==
[2024-08-07 16:58] LABS: #Basophils 0.09 10x3/uL (0.0-0.2); %Basophils 0.9 % (0.0-1.0); %Eosinophils 2.1 % (0.0-10.0); %Lymphocytes 23.3 % (21.0-51.0); %Monocytes 5.2 % (0.0-10.0); %Neutrophils 68.1 % (42.0-75.0); Hematocrit 40.1 % (36.0-47.0); Mean Corpuscular HGB CONC 32.4 g/dL (32.0-36.0); Mean Corpuscular Hemoglobin 26.6 pg (27.0-31.0); Mean Corpuscular Volume 82.2 fL (78.0-98.0); Mean Platelet Volume 9.4 fL (7.4-10.4); Platelet Count 358 10x3/uL (130-400); RBC Distribution Width 14.9 % (11.5-14.5); Red Blood Cell (RBC) Count 4.88 mill/uL (4.20-5.40)
[2024-08-07 17:43] LABS: ALT (SGPT) 10 U/L (8-55); AST (SGOT) 13 U/L (5-34); Albumin 3.8 g/dL (3.4-4.8); Alkaline Phosphatase 128 U/L (40-110); Anion Gap 20 mmol/L (10-20); BUN (Urea Nitrogen) 13 mg/dL (9.8-20.1); Bilirubin, Total 0.3 mg/dL (0.2-1.2); Calc. Creatinine Clearance 0 mL/min (70-130); Calcium 10.2 mg/dL (7.8-10.44); Carbon Dioxide 25 mmol/L (23-31); Chloride 96 mmol/L (98-107); Estimated GFR 38; Globulin 4.7 g/dL (2.4-3.5); Glucose 484 mg/dL (80-115); Potassium 3.9 mmol/L (3.5-5.1); Protein, Total 8.5 g/dL (5.8-8.1); Sodium 137 mmol/L (136-145)
[2024-08-07 20:44] LABS: Lactic Acid 2.18 mmol/L (0.5-2.2)
== END 2024-08-07 20:41 | disposition home or self-care (01) ==
LOC: ERS 16:11
DX: R06.02 Shortness of breath (principal); B35.9 Dermatophytosis, unspecified; I11.0 Hypertensive heart disease with heart failure; I50.9 Heart failure, unspecified; J44.89 Other specified chronic obstructive pulmonary disease; E11.40 Type 2 diabetes mellitus with diabetic neuropathy, unspecified; F17.210 Nicotine dependence, cigarettes, uncomplicated; I25.2 Old myocardial infarction; Z95.5 Presence of coronary angioplasty implant and graft; Z86.73 Personal history of transient ischemic attack (TIA), and cerebral infarction without residual deficits
CPT/HCPCS: 36415; 71045; 71275; 80053; 83605; 83880; 84484; 85025; 93005